=== PATIENT | female | born 1975 | race Caucasian/White ===

== ENCOUNTER → 2017-09-08 11:13 | Outpatient (CLI) | payer OTHER, SELFPAY ==
--- NOTE | 2017-09-08 11:15 | DI.RAD.S_ITS ---
PROCEDURE: XR WRIST LT MIN 3V INDICATIONS: L hand and wrist pain TECHNIQUE: 4 views of the wrist were acquired. COMPARISON: [facility], , WRIST 2 VIEWS RIGHT, 04/20/2016, 22:10. FINDINGS: Bones: No fractures or dislocations. No suspicious bony lesions. Scaphoid view: No trauma found. Soft tissues: No suspicious soft tissue calcifications. IMPRESSION: No trauma found. Dictated by: Fabiano Ivan M.D. on 09/08/2017 at 12:03 Approved by: Fabiano Ivan M.D. on 09/08/2017 at 12:03
--- NOTE | 2017-09-08 11:15 | DI.RAD.S_ITS ---
PROCEDURE: XR HAND LT MIN 3V INDICATIONS: L hand and wrist pain TECHNIQUE: 3 views of the hand(s) acquired. COMPARISON: None. FINDINGS: Bones: No fractures or dislocations. Carpal bones are normally aligned. No suspicious bony lesions. Soft tissues: No suspicious soft tissue calcifications. IMPRESSION: Normal for age, source of current symptoms is not seen other than a mild degree of thinning of the intra-articular joint width at the distal phalanges, consistent with mild osteoarthritis. Dictated by: Fabiano Ivan M.D. on 09/08/2017 at 12:02 Approved by: Fabiano Ivan M.D. on 09/08/2017 at 12:03
== END ==
PROVIDERS: PCP Family Medicine; Visit Provider Nurse Practitioner Family
DX: M79.642 Pain in left hand (principal); M25.532 Pain in left wrist
CPT/HCPCS: 73110; 73130

== ENCOUNTER → 2017-12-25 08:14 | Outpatient (CLI) | payer OTHER, SELFPAY ==
[2017-12-25 08:36] LABS: Add Manual Diff / Slide Review NO; Basophils Percent Auto 0.3 % (0-2); Eosinophils Percent Auto 2.3 % (2-4); Hematocrit 41.8 % (36-46); Hemoglobin 14.4 g/dL (12.0-16.0); Lymphocytes Percent Auto 23.6 % (25-40); Mean Corpuscular HGB Conc 34.4 % (30-36); Mean Corpuscular Hemoglobin 34.6 PG (26-34); Mean Corpuscular Volume 100.3 fL (80-100); Monocytes Percent Auto 6.9 % (3-14); Neutrophils Absolute Auto 4100 /uL (3000-5900); Neutrophils Percent Auto 66.9 % (50-75); Platelet Count 185 X10^3/uL (150-400); Red Blood Cell Count 4.17 X10^6/uL (4.0-5.2); Red Cell Distribution Width 12.7 % (11.6-14.8); White Blood Cell Count 6.2 X10^3/uL (4.5-11.0)
[2017-12-25 09:15] LABS: Alanine Aminotransferase 23 IU/L (9-52); Albumin 4.2 g/dL (3.5-5.0); Albumin Globulin Ratio 1.4 (1.0-2.8); Alkaline Phosphatase 63 U/L (38-126); Aspartate Aminotransferase 34 IU/L (14-36); BUN Creatinine Ratio 15.6 (6-22); Bilirubin Total 0.5 mg/dL (0.2-1.3); Blood Urea Nitrogen 14 mg/dL (7-17); Calcium 9.1 mg/dL (8.4-10.2); Carbon Dioxide 30 mmol/L (22-32); Chloride 106 mmol/L (98-107); Cholesterol 139 mg/dL (140-199); Estimated Glomerular Filt Rate > 60.0 mL/min (>60); Glucose 91 mg/dL (70-100); HDL Cholesterol 75 mg/dL (40-60); HEMOLYSIS 16 (0-50); LDL Cholesterol Calculated 52 mg/dL (<100); Sodium 146 mmol/L (137-145); Total Protein 7.2 g/dL (6.3-8.2); Triglycerides 59 mg/dL (35-150)
[2017-12-25 10:31] LABS: Thyroid Stimulating Hormone 3.37 uIU/mL (0.47-4.68)
== END ==
PROVIDERS: PCP Family Medicine; Visit Provider Family Medicine
DX: F90.9 Attention-deficit hyperactivity disorder, unspecified type (principal)
CPT/HCPCS: 36415; 80053; 80061; 84443; 85025

== ENCOUNTER → 2018-01-28 11:01 | Outpatient (CLI) | payer OTHER, SELFPAY | PROVIDERS: PCP Family Medicine; Visit Provider Physician Assistant | DX: J02.9 Acute pharyngitis, unspecified (principal) | CPT/HCPCS: 87070; 87147 ==

== ENCOUNTER → 2018-04-15 08:12 | Outpatient (CLI) | payer OTHER, SELFPAY ==
--- NOTE | 2018-04-15 | DI.MG.S_ITS ---
BILATERAL DIGITAL SCREENING MAMMOGRAM 3D/2D WITH CAD WITH AUGMENTATION: 04/15/2018 CLINICAL: Routine screening. Comparison is made to exam dated: 06/05/2016 [facility]. There are scattered fibroglandular elements in both breasts. Current study was also evaluated with a Computer Aided Detection (CAD) system. Bilateral breast implants are intact. No significant masses, calcifications, or other findings are seen in either breast. There has been no significant interval change. IMPRESSION: There is no mammographic evidence of malignancy. A 1 year screening mammogram is recommended. This exam was interpreted at Station ID: [id number]. NOTE: For mammograms, a report in lay terms will be sent to the patient. Approximately 15% of breast malignancies will not be visualized mammographically. In the management of a palpable breast mass, a negative mammogram must not discourage biopsy of a clinically suspicious lesion. Electronically Signed By: Dakota taylor/nadira:04/16/2018 11:48:29 copy to: KINA CAIN letter sent: Normal Exam ACR BI-RADS Category 2: Benign Finding(s) 3342F
== END ==
PROVIDERS: PCP Family Medicine; Visit Provider Family Medicine
DX: Z12.31 Encounter for screening mammogram for malignant neoplasm of breast (principal)
CPT/HCPCS: 77063; 77067

== ENCOUNTER 2018-09-16 08:15 | Outpatient (RCR) | payer OTHER, SELFPAY ==
--- NOTE | 2018-06-15 17:30 | PT.OIE ---
Current Diagnoses Pain in left knee (06/15/18) Past Medical History (Last Updated 11/23/17 @ 22:59 by Shannon Hutchinson) ADHD (Chronic) Acne (Chronic ~1987) Ankle pain (Chronic ~1991) Fractures (Chronic ~1985) Irregular menstrual cycle (Chronic ~2011) Ovarian cyst (Chronic ~2011) Rosacea (Chronic ~2007) Tinnitus (Chronic ~2012) Chicken pox (Resolved ~1979) Kidney stones (Resolved ~1997) Staph infection (Resolved ~1997) Past Surgical History (Last Updated 11/23/17 @ 22:59 by Shannon Hutchinson) Anesthesia (Resolved) Surgical procedure planned (Resolved ~2002) Surgical procedure planned (Resolved ~2009) History of breast augmentation (~2010) History of lithotripsy Status post knee surgery (~1988) Provider Visit Care Team Role Provider Type Fer Cole MD Attending Provider Physician Primary Care Provider Specialty: Family Practice Address: [address] [place] [address] Email: [email or web address] Physical Therapy Initial Evaluation PT-OP-A Visit Information Start: 06/15/18 17:24 Freq: Status: Active Protocol: Document 06/15/18 17:20 EA (Rec: 06/16/18 08:57 EA [id number]) Out-Patient Physical Therapy Visit Information Visit Information Visit Type Initial Evaluation Visit Start Time 08:15 Visit Stop Time 08:50 Total Visit Minutes 35 Visit Number 1 Number of MECHANIC'S ASSISTANT Visits 0 Evaluation Information Evaluation Date 06/16/18 PT-OP-B Current Condition Start: 06/15/18 17:24 Freq: Status: Active Protocol: Document 06/15/18 17:20 EA (Rec: 06/16/18 08:57 EA [id number]) Current Condition History of Current Condition Onset Date 3 years ago (Chronic) Current Complaints Left knee pain History of Current Condition Patient reports present left localized knee complaint has been chronic in the last three years with a history of ACL reconstruction surgery ( patellar tendon graft) 22 years ago. Patient denies any knee injury in the last 5 years. Pt states that she has been using ICE and knee brace in the last three years to managed the condition. She mentioned three marathon in the last ten years and pain is manageable, however, pain and swelling anytime she does running lessen her ability to progress more. States diagnostic imaging performed with arthritic condition of the knee. Prior Treatments and Tests Formal PT to left knee after surgery 22 years ago (last longer due to infection) Future Testing and Treatments Planned None identified. Treatment Goals Patient/Caregiver Goals Patient would like to be able to run without aggravating the knee and with no increase of symptoms. 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) Baseline Function- Recreation/Hobbies 3x/wk crossfit training 3-5 miles/ running per week Current Functional Impairments (Reported) Functional Limitations- ADL's Independent with difficulty in full squat activities Functional Limitations- Mobility/Gait Indep with no assistive device Functional Limitations- Work/School Indepedent Functional Limitations- Recreation/ Unable to run more than three Hobbies mile a week due increased in symptoms Difficulty in full squat crossfit activities PT-OP-C Subjective Start: 06/15/18 17:24 Freq: Status: Active Protocol: Document 06/15/18 17:20 EA (Rec: 06/16/18 08:57 EA [id number]) OP-PT Subjective Patient Comments Patient Comments I have to wrap my left knee and ICE it every crossfit and running activities. Patient Reported Progress Worse Patient Questionnaires Lower Extremity Functional Scale LEFS Score 62 LEFS Impairment 20 to 39% Impaired (Score 48- 62) PT-OP-E Functional Tests Start: 06/15/18 17:24 Freq: Status: Active Protocol: Document 06/15/18 17:30 EA (Rec: 06/16/18 09:09 EA [id number]) Functional Tests Squat Test Score Single leg: Right able without difficulty. Left 30 degrees with difficulty PT-OP-F Manual Assessment Start: 06/15/18 17:24 Freq: Status: Active Protocol: Document 06/15/18 17:20 EA (Rec: 06/16/18 08:57 EA [id number]) Manual Assessments Soft Tissue Assessment Soft Tissue Mobility Assessment Tight left quads and slight both hamstrings tightness. Joint Mobility Assessment Joint Mobility Assessment Normal PT-OP-G Mobility & Gait Start: 06/15/18 17:24 Freq: Status: Active Protocol: Document 06/15/18 17:20 EA (Rec: 06/16/18 08:57 EA [id number]) Stair Climbing Evaluation Comments Stair Climbing Comments Slight antalgic with decreased stance phase to left PT-OP-J Posture/Palpation/Skin Start: 06/15/18 17:24 Freq: Status: Active Protocol: Document 06/15/18 17:20 EA (Rec: 06/16/18 08:57 EA [id number]) Posture Evaluation Comments Posture Comments Valgus to both knees with left is more than right Palpation Assessment Location One Palpation Location Left quads tightness, hip flexor, and ITB Palpation Findings Soft Tissue Tightness Tenderness Palpation Details Patellar crepitus, left. Grade 2/5 medial patellar ligament, lateral hamstring tendon insertion. PT-OP-K Range of Motion Start: 06/15/18 17:24 Freq: Status: Active Protocol: Document 06/15/18 17:20 EA (Rec: 06/16/18 08:57 EA [id number]) Knee Goniometric Range of Motion Knee Measured in Degrees Right Knee ROM WFL Yes Patient Position Supine Flexion Active (degrees) 145 Left Patient Position Supine Flexion Active (degrees) 112 Flexion Passive (degrees) 120 Extension Active (degrees) 0 Knee ROM Limitations Knee ROM Limitations Soft Tissue Tightness Pain PT-OP-L Special Tests Start: 06/15/18 17:24 Freq: Status: Active Protocol: Document 06/15/18 17:30 EA (Rec: 06/16/18 09:09 EA [id number]) Special Tests Knee Special Tests Anterior Draw Test Results negative Gibson's Compression Test Results positive Samia Test Test Results negative Hughston Pica Test Test Results negative Patellar Grind Test Test Results positive Korin's Test Test Results left positive Erwin Test Results both LE positive Martin's Sign Test Results Left knee positive PT-OP-M Strength Start: 06/15/18 17:24 Freq: Status: Active Protocol: Document 06/15/18 17:20 EA (Rec: 06/16/18 08:57 EA [id number]) Hip Strength Hip Manual Muscle Testing Right Reason Not Measured WFL Left Reason Not Measured WFL Knee Strength Knee Manual Muscle Testing Right Reason Not Measured WFL Left Flexion (S2) 4 Good Extension (L3) 4+ Good+ PT-OP-Q Treatments Start: 06/15/18 17:24 Freq: Status: Active Protocol: Document 06/15/18 17:28 EA (Rec: 06/15/18 17:29 EA [id number]) Self-Care/Home Management Treatment Education Patient Education Home Exercise Program Joint Protection Pain Management Safety PT-OP-T Assessment and Plan Start: 06/15/18 17:24 Freq: Status: Active Protocol: Document 06/15/18 17:25 EA (Rec: 06/15/18 17:28 EA [id number]) Physical Therapy Assessment Rehab Potential Rehabilitation Potential Good Evaluation Complexity Number of Personal Factors/Comorbidities 0 Number of Body Systems Impaired 1-2 Clinical Presentation at Evaluation Evolving Impairments Impairments Activity Tolerance Gait Pain ROM Strength Goals Four Impairment No HEP in place Senior Network Architect Goal (LTG) Patient will comply and perform home exercises safe and independent LTG Duration 3 wks Three Impairment Impaired left quads functional strength Senior Network Architect Goal (LTG) Patient will perform single leg squat without difficulty for functional running LTG Duration 4 wks Two Impairment Impaired left knee ROM Correction Goal (LTG) Patient will have left knee full ROM to enable patient perform crossfit activities without limitation LTG Duration 4 wks One Impairment LEFS score of 62/80 Senior Network Architect Goal (LTG) Will have LEFS score of 75/80 LTG Duration 6 wks Assessment Summary Assessment Pleasant 42 y/o F patient with a referring diagnosis of left knee pain. Today patient demonstrates slight gait abnormality and decreased left knee functional strength. Ocular inspection reveals valgus knee L is more than R, slight swelling, slight antalgic gait. Palpation reveals tender to medial patellar ligament, left lateral hamstring insertion, and tightness to quads, hamstring, and ITB. Special tests reveals positive with Martin's sign, patellar grind, gibson compression tests, negative ant drawer test, MCL/ LCL and meniscus tests. Patient unable to perform full squat and difficulty with left single leg squat. In my opinion, patient would greatly benefit with skilled PT to improve left quads strength, increase ROM. Physical Therapy Plan Frequency and Duration Frequency of Treatment 2x/Week Duration of Treatment 8 wks Plan of Care Start Date 06/15/18 Plan of Care End Date 08/10/18 Therapeutic Interventions Therapeutic Interventions Gait Training Home Exercise Program Joint Mobilizations Manual Therapy Patient/Caregiver Education Self-Care/Home Management Soft Tissue Mobilization Taping Therapeutic Exercises Modalities Cold Pack/Ice Massage Electric Stimulation Hot Packs Ultrasound Next Visit Focus/Plan Next Note Type Treatment Note Next Visit Plan HEP w/ images, quads strengthening and stretching.
--- NOTE | 2018-06-15 17:35 | PT.OPPOC ---
Current Diagnoses Pain in left knee (06/15/18) Provider Visit Care Team Role Provider Type Fer Cole MD Attending Provider Physician Primary Care Provider Specialty: Family Practice Address: [address] [place] [address], [facility] Email: [email or web address] Plan Of Care PT-OP-T Assessment and Plan Start: 06/15/18 17:24 Freq: Status: Active Protocol: Document 06/15/18 17:25 EA (Rec: 06/15/18 17:28 EA [id number]) Physical Therapy Assessment Rehab Potential Rehabilitation Potential Good Evaluation Complexity Number of Personal Factors/Comorbidities 0 Number of Body Systems Impaired 1-2 Clinical Presentation at Evaluation Evolving Impairments Impairments Activity Tolerance Gait Pain ROM Strength Goals Four Impairment No HEP in place Halfway Goal (LTG) Patient will comply and perform home exercises safe and independent LTG Duration 3 wks Three Impairment Impaired left quads functional strength Mounter Clarinets Goal (LTG) Patient will perform single leg squat without difficulty for functional running LTG Duration 4 wks Two Impairment Impaired left knee ROM Mounter Clarinets Goal (LTG) Patient will have left knee full ROM to enable patient perform crossfit activities without limitation LTG Duration 4 wks One Impairment LEFS score of 62/80 Halfway Goal (LTG) Will have LEFS score of 75/80 LTG Duration 6 wks Assessment Summary Assessment Pleasant 42 y/o F patient with a referring diagnosis of left knee pain. Today patient demonstrates slight gait abnormality and decreased left knee functional strength. Ocular inspection reveals valgus knee L is more than R, slight swelling, slight antalgic gait. Palpation reveals tender to medial patellar ligament, left lateral hamstring insertion, and tightness to quads, hamstring, and ITB. Special tests reveals positive with Martin's sign, patellar grind, gibson compression tests, negative ant drawer test, MCL/ LCL and meniscus tests. Patient unable to perform full squat and difficulty with left single leg squat. In my opinion, patient would greatly benefit with skilled PT to improve left quads strength, increase ROM. Physical Therapy Plan Frequency and Duration Frequency of Treatment 2x/Week Duration of Treatment 8 wks Plan of Care Start Date 06/15/18 Plan of Care End Date 08/10/18 Therapeutic Interventions Therapeutic Interventions Gait Training Home Exercise Program Joint Mobilizations Manual Therapy Patient/Caregiver Education Self-Care/Home Management Soft Tissue Mobilization Taping Therapeutic Exercises Modalities Cold Pack/Ice Massage Electric Stimulation Hot Packs Ultrasound Next Visit Focus/Plan Next Note Type Treatment Note Next Visit Plan HEP w/ images, quads strengthening and stretching. Plan of Care Dates Plan of Care Start Date 06/15/18 Plan of Care End Date 08/10/18 Please Sign and Return: I have reviewed this Plan of Care and certify that the skilled therapy services above are required to meet the patient?s needs. Physician Signature Date Printed Name and Credentials Clinical Instructor Signature Printed Name and Credentials
--- NOTE | 2018-06-17 12:42 | PT.OTN ---
Current Diagnoses Pain in left knee (06/17/18) Physical Therapy Treatment Note PT-OP-A Visit Information Start: 06/15/18 17:24 Freq: Status: Active Protocol: Document 06/17/18 08:59 EA (Rec: 06/17/18 09:11 EA [id number]) Out-Patient Physical Therapy Visit Information Visit Information Visit Type Treatment Note Visit Start Time 08:15 Visit Stop Time 09:10 Total Visit Minutes 55 Visit Number 2 Number of GAS PUMPER Visits 0 PT-OP-B Current Condition Start: 06/15/18 17:24 Freq: Status: Active Protocol: Document 06/15/18 17:20 EA (Rec: 06/16/18 08:57 EA [id number]) Current Condition History of Current Condition Onset Date 3 years ago (Chronic) Current Complaints Left knee pain History of Current Condition Patient reports present left localized knee complaint has been chronic in the last three years with a history of ACL reconstruction surgery ( patellar tendon graft) 22 years ago. Patient denies any knee injury in the last 5 years. Pt states that she has been using ICE and knee brace in the last three years to managed the condition. She mentioned three marathon in the last ten years and pain is manageable, however, pain and swelling anytime she does running lessen her ability to progress more. States diagnostic imaging performed with arthritic condition of the knee. Prior Treatments and Tests Formal PT to left knee after surgery 22 years ago (last longer due to infection) Future Testing and Treatments Planned None identified. Treatment Goals Patient/Caregiver Goals Patient would like to be able to run without aggravating the knee and with no increase of symptoms. 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) Baseline Function- Recreation/Hobbies 3x/wk crossfit training 3-5 miles/ running per week Current Functional Impairments (Reported) Functional Limitations- ADL's Independent with difficulty in full squat activities Functional Limitations- Mobility/Gait Indep with no assistive device Functional Limitations- Work/School Indepedent Functional Limitations- Recreation/ Unable to run more than three Hobbies mile a week due increased in symptoms Difficulty in full squat crossfit activities PT-OP-C Subjective Start: 06/15/18 17:24 Freq: Status: Active Protocol: Document 06/17/18 08:59 EA (Rec: 06/17/18 09:11 EA [id number]) OP-PT Subjective Patient Comments Patient Comments Pt reports has been compliant with HEP. PT-OP-E Functional Tests Start: 06/15/18 17:24 Freq: Status: Active Protocol: Document 06/15/18 17:30 EA (Rec: 06/16/18 09:09 EA [id number]) Functional Tests Squat Test Score Single leg: Right able without difficulty. Left 30 degrees with difficulty PT-OP-F Manual Assessment Start: 06/15/18 17:24 Freq: Status: Active Protocol: Document 06/15/18 17:20 EA (Rec: 06/16/18 08:57 EA [id number]) Manual Assessments Soft Tissue Assessment Soft Tissue Mobility Assessment Tight left quads and slight both hamstrings tightness. Joint Mobility Assessment Joint Mobility Assessment Normal PT-OP-G Mobility & Gait Start: 06/15/18 17:24 Freq: Status: Active Protocol: Document 06/15/18 17:20 EA (Rec: 06/16/18 08:57 EA [id number]) Stair Climbing Evaluation Comments Stair Climbing Comments Slight antalgic with decreased stance phase to left PT-OP-J Posture/Palpation/Skin Start: 06/15/18 17:24 Freq: Status: Active Protocol: Document 06/15/18 17:20 EA (Rec: 06/16/18 08:57 EA [id number]) Posture Evaluation Comments Posture Comments Valgus to both knees with left is more than right Palpation Assessment Location One Palpation Location Left quads tightness, hip flexor, and ITB Palpation Findings Soft Tissue Tightness Tenderness Palpation Details Patellar crepitus, left. Grade 2/5 medial patellar ligament, lateral hamstring tendon insertion. PT-OP-K Range of Motion Start: 06/15/18 17:24 Freq: Status: Active Protocol: Document 06/15/18 17:20 EA (Rec: 06/16/18 08:57 EA [id number]) Knee Goniometric Range of Motion Knee Measured in Degrees Right Knee ROM WFL Yes Patient Position Supine Flexion Active (degrees) 145 Left Patient Position Supine Flexion Active (degrees) 112 Flexion Passive (degrees) 120 Extension Active (degrees) 0 Knee ROM Limitations Knee ROM Limitations Soft Tissue Tightness Pain PT-OP-L Special Tests Start: 06/15/18 17:24 Freq: Status: Active Protocol: Document 06/15/18 17:30 EA (Rec: 06/16/18 09:09 EA [id number]) Special Tests Knee Special Tests Anterior Draw Test Results negative Sharp's Compression Test Results positive Samia Test Test Results negative Hughston Pica Test Test Results negative Patellar Grind Test Test Results positive Korin's Test Test Results left positive Erwin Test Results both LE positive Martin's Sign Test Results Left knee positive PT-OP-M Strength Start: 06/15/18 17:24 Freq: Status: Active Protocol: Document 06/15/18 17:20 EA (Rec: 06/16/18 08:57 EA [id number]) Hip Strength Hip Manual Muscle Testing Right Reason Not Measured WFL Left Reason Not Measured WFL Knee Strength Knee Manual Muscle Testing Right Reason Not Measured WFL Left Flexion (S2) 4 Good Extension (L3) 4+ Good+ PT-OP-Q Treatments Start: 06/15/18 17:24 Freq: Status: Active Protocol: Document 06/17/18 08:59 EA (Rec: 06/17/18 09:11 EA [id number]) Cardio Equipment Bicycle (Upright) Duration (Minutes) 7 Resistance 4 Seat Position 4-2 Gym Equipment Cable Column (Body Solid) Leg Extension Details ball in bet knees Resistance 30lbs Reps/Time x 12 reps Shuttle Recovery Unilateral Squats Resistance 2 cords Shuttle Recovery Platform Stable Reps/Time x 15 reps Bilateral Squats Resistance 4 cords Shuttle Recovery Platform Stable Reps/Time x 15 reps Therapeutic Exercises Supine Exercises 1 Supine Exercise Name SKTC Side left Reps/Minutes x 30SH x 2 Prone Exercises 1 Prone Exercise Name qudas stretch Side left Reps/Minutes x 30SH x 2 Standing Exercises 3 Standing Exercise Name corrected squating 90degrees Side bilateral Reps/Minutes x 15 reps 2 Standing Exercise Name FWD lunges 1 Standing Exercise Name wall squat Side bilateral Reps/Minutes x 15 reps x2 Comments 90 deg w/ ball in bet knees/ VMO Self-Care/Home Management Treatment Education Patient Education Home Exercise Program Joint Protection Pain Management PT-OP-R Modalities Start: 06/15/18 17:24 Freq: Status: Active Protocol: Document 06/17/18 09:11 EA (Rec: 06/17/18 09:12 EA [id number]) Hot Pack/Cold Pack Treatment Cold Pack Location left knee Patient Position Hooklying Treatment Duration (minutes) 15 Patient Tolerance Good PT-OP-T Assessment and Plan Start: 06/15/18 17:24 Freq: Status: Active Protocol: Document 06/17/18 08:59 EA (Rec: 06/17/18 09:11 EA [id number]) Physical Therapy Assessment Assessment Summary Assessment Pt requires cues during exercises execution. Tolerated treatment well with no discomfort noted. Physical Therapy Plan Next Visit Focus/Plan Next Note Type Treatment Note Next Visit Plan Continue with progressive strengthening to quads area
--- NOTE | 2018-06-22 13:42 | PT.OTN ---
Current Diagnoses Pain in left knee (06/22/18) Physical Therapy Treatment Note PT-OP-A Visit Information Start: 06/15/18 17:24 Freq: Status: Active Protocol: Document 06/22/18 13:38 EA (Rec: 06/22/18 13:42 EA [id number]) Out-Patient Physical Therapy Visit Information Visit Information Visit Type Treatment Note Visit Start Time 10:30 Visit Stop Time 11:25 Total Visit Minutes 55 Visit Number 3 Number of BIOGEOGRAPHER Visits 0 PT-OP-B Current Condition Start: 06/15/18 17:24 Freq: Status: Active Protocol: Document 06/15/18 17:20 EA (Rec: 06/16/18 08:57 EA [id number]) Current Condition History of Current Condition Onset Date 3 years ago (Chronic) Current Complaints Left knee pain History of Current Condition Patient reports present left localized knee complaint has been chronic in the last three years with a history of ACL reconstruction surgery ( patellar tendon graft) 22 years ago. Patient denies any knee injury in the last 5 years. Pt states that she has been using ICE and knee brace in the last three years to managed the condition. She mentioned three marathon in the last ten years and pain is manageable, however, pain and swelling anytime she does running lessen her ability to progress more. States diagnostic imaging performed with arthritic condition of the knee. Prior Treatments and Tests Formal PT to left knee after surgery 22 years ago (last longer due to infection) Future Testing and Treatments Planned None identified. Treatment Goals Patient/Caregiver Goals Patient would like to be able to run without aggravating the knee and with no increase of symptoms. 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) Baseline Function- Recreation/Hobbies 3x/wk crossfit training 3-5 miles/ running per week Current Functional Impairments (Reported) Functional Limitations- ADL's Independent with difficulty in full squat activities Functional Limitations- Mobility/Gait Indep with no assistive device Functional Limitations- Work/School Indepedent Functional Limitations- Recreation/ Unable to run more than three Hobbies mile a week due increased in symptoms Difficulty in full squat crossfit activities PT-OP-C Subjective Start: 06/15/18 17:24 Freq: Status: Active Protocol: Document 06/22/18 13:38 EA (Rec: 06/22/18 13:42 EA [id number]) OP-PT Subjective Patient Comments Patient Comments Pt reports had crossfit workout and knee is fine., PT-OP-E Functional Tests Start: 06/15/18 17:24 Freq: Status: Active Protocol: Document 06/15/18 17:30 EA (Rec: 06/16/18 09:09 EA [id number]) Functional Tests Squat Test Score Single leg: Right able without difficulty. Left 30 degrees with difficulty PT-OP-F Manual Assessment Start: 06/15/18 17:24 Freq: Status: Active Protocol: Document 06/15/18 17:20 EA (Rec: 06/16/18 08:57 EA [id number]) Manual Assessments Soft Tissue Assessment Soft Tissue Mobility Assessment Tight left quads and slight both hamstrings tightness. Joint Mobility Assessment Joint Mobility Assessment Normal PT-OP-G Mobility & Gait Start: 06/15/18 17:24 Freq: Status: Active Protocol: Document 06/15/18 17:20 EA (Rec: 06/16/18 08:57 EA [id number]) Stair Climbing Evaluation Comments Stair Climbing Comments Slight antalgic with decreased stance phase to left PT-OP-J Posture/Palpation/Skin Start: 06/15/18 17:24 Freq: Status: Active Protocol: Document 06/15/18 17:20 EA (Rec: 06/16/18 08:57 EA [id number]) Posture Evaluation Comments Posture Comments Valgus to both knees with left is more than right Palpation Assessment Location One Palpation Location Left quads tightness, hip flexor, and ITB Palpation Findings Soft Tissue Tightness Tenderness Palpation Details Patellar crepitus, left. Grade 2/5 medial patellar ligament, lateral hamstring tendon insertion. PT-OP-K Range of Motion Start: 06/15/18 17:24 Freq: Status: Active Protocol: Document 06/15/18 17:20 EA (Rec: 06/16/18 08:57 EA [id number]) Knee Goniometric Range of Motion Knee Measured in Degrees Right Knee ROM WFL Yes Patient Position Supine Flexion Active (degrees) 145 Left Patient Position Supine Flexion Active (degrees) 112 Flexion Passive (degrees) 120 Extension Active (degrees) 0 Knee ROM Limitations Knee ROM Limitations Soft Tissue Tightness Pain PT-OP-L Special Tests Start: 06/15/18 17:24 Freq: Status: Active Protocol: Document 06/15/18 17:30 EA (Rec: 06/16/18 09:09 EA [id number]) Special Tests Knee Special Tests Anterior Draw Test Results negative Sharp's Compression Test Results positive Samia Test Test Results negative Hughston Pica Test Test Results negative Patellar Grind Test Test Results positive Korin's Test Test Results left positive Erwin Test Results both LE positive Martin's Sign Test Results Left knee positive PT-OP-M Strength Start: 06/15/18 17:24 Freq: Status: Active Protocol: Document 06/15/18 17:20 EA (Rec: 06/16/18 08:57 EA [id number]) Hip Strength Hip Manual Muscle Testing Right Reason Not Measured WFL Left Reason Not Measured WFL Knee Strength Knee Manual Muscle Testing Right Reason Not Measured WFL Left Flexion (S2) 4 Good Extension (L3) 4+ Good+ PT-OP-Q Treatments Start: 06/15/18 17:24 Freq: Status: Active Protocol: Document 06/22/18 13:38 EA (Rec: 06/22/18 13:42 EA [id number]) Cardio Equipment Bicycle (Upright) Duration (Minutes) 7 Resistance 5 Seat Position 4-2 Gym Equipment Cable Column (Body Solid) Leg Extension Details ball in bet knees Resistance 30-50lbs Reps/Time x 8-12 reps Shuttle Recovery Unilateral Squats Resistance 3.5 cords Shuttle Recovery Platform Stable Reps/Time x 15 reps Bilateral Squats Resistance 4 cords Shuttle Recovery Platform Stable Reps/Time x 15 reps Therapeutic Exercises Supine Exercises 1 Supine Exercise Name SKTC Side left Reps/Minutes x 30SH x 2 Prone Exercises 1 Prone Exercise Name quads stretch Side left Reps/Minutes x 30SH x 2 Standing Exercises 3 Standing Exercise Name corrected squating 90degrees Side bilateral Reps/Minutes x 15 reps 2 Standing Exercise Name FWD lunges Reps/Minutes x 12 ft x 3 1 Standing Exercise Name wall squat Side bilateral Resistance 10lbs db to both arm Reps/Minutes x 15 reps x2 Comments 90 deg w/ ball in bet knees/ VMO PT-OP-R Modalities Start: 06/15/18 17:24 Freq: Status: Active Protocol: Document 06/22/18 13:38 EA (Rec: 06/22/18 13:42 EA [id number]) Hot Pack/Cold Pack Treatment Cold Pack Location left knee Patient Position Hooklying Treatment Duration (minutes) 15 Patient Tolerance Good PT-OP-T Assessment and Plan Start: 06/15/18 17:24 Freq: Status: Active Protocol: Document 06/22/18 13:38 EA (Rec: 06/22/18 13:42 EA [id number]) Physical Therapy Assessment Assessment Summary Assessment Tolerated treatment well with no discomfort. Physical Therapy Plan Next Visit Focus/Plan Next Note Type Treatment Note Next Visit Plan Continue with progressive strengthening to quads area
--- NOTE | 2018-06-24 09:18 | PT.OTN ---
Current Diagnoses Pain in left knee (06/24/18) Physical Therapy Treatment Note PT-OP-A Visit Information Start: 06/15/18 17:24 Freq: Status: Active Protocol: Document 06/24/18 08:21 EA (Rec: 06/24/18 09:02 EA [id number]) Out-Patient Physical Therapy Visit Information Visit Information Visit Type Treatment Note Visit Start Time 08:15 Visit Stop Time 09:12 Total Visit Minutes 57 Visit Number 4 Number of DIMENSION MILL WORKER Visits 0 PT-OP-B Current Condition Start: 06/15/18 17:24 Freq: Status: Active Protocol: Document 06/15/18 17:20 EA (Rec: 06/16/18 08:57 EA [id number]) Current Condition History of Current Condition Onset Date 3 years ago (Chronic) Current Complaints Left knee pain History of Current Condition Patient reports present left localized knee complaint has been chronic in the last three years with a history of ACL reconstruction surgery ( patellar tendon graft) 22 years ago. Patient denies any knee injury in the last 5 years. Pt states that she has been using ICE and knee brace in the last three years to managed the condition. She mentioned three marathon in the last ten years and pain is manageable, however, pain and swelling anytime she does running lessen her ability to progress more. States diagnostic imaging performed with arthritic condition of the knee. Prior Treatments and Tests Formal PT to left knee after surgery 22 years ago (last longer due to infection) Future Testing and Treatments Planned None identified. Treatment Goals Patient/Caregiver Goals Patient would like to be able to run without aggravating the knee and with no increase of symptoms. 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 Function- Recreation/Hobbies 3x/wk crossfit training 3-5 miles/ running per week Current Functional Impairments (Reported) Functional Limitations- ADL's Independent with difficulty in full squat activities Functional Limitations- Mobility/Gait Indep with no assistive device Functional Limitations- Work/School Indepedent Functional Limitations- Recreation/ Unable to run more than three Hobbies mile a week due increased in symptoms Difficulty in full squat crossfit activities PT-OP-C Subjective Start: 06/15/18 17:24 Freq: Status: Active Protocol: Document 06/24/18 08:21 EA (Rec: 06/24/18 09:02 EA [id number]) OP-PT Subjective Patient Comments Patient Comments Pty reports no swelling or increased in knee pain. PT-OP-E Functional Tests Start: 06/15/18 17:24 Freq: Status: Active Protocol: Document 06/15/18 17:30 EA (Rec: 06/16/18 09:09 EA [id number]) Functional Tests Squat Test Score Single leg: Right able without difficulty. Left 30 degrees with difficulty PT-OP-F Manual Assessment Start: 06/15/18 17:24 Freq: Status: Active Protocol: Document 06/15/18 17:20 EA (Rec: 06/16/18 08:57 EA [id number]) Manual Assessments Soft Tissue Assessment Soft Tissue Mobility Assessment Tight left quads and slight both hamstrings tightness. Joint Mobility Assessment Joint Mobility Assessment Normal PT-OP-G Mobility & Gait Start: 06/15/18 17:24 Freq: Status: Active Protocol: Document 06/15/18 17:20 EA (Rec: 06/16/18 08:57 EA [id number]) Stair Climbing Evaluation Comments Stair Climbing Comments Slight antalgic with decreased stance phase to left PT-OP-J Posture/Palpation/Skin Start: 06/15/18 17:24 Freq: Status: Active Protocol: Document 06/15/18 17:20 EA (Rec: 06/16/18 08:57 EA [id number]) Posture Evaluation Comments Posture Comments Valgus to both knees with left is more than right Palpation Assessment Location One Palpation Location Left quads tightness, hip flexor, and ITB Palpation Findings Soft Tissue Tightness Tenderness Palpation Details Patellar crepitus, left. Grade 2/5 medial patellar ligament, lateral hamstring tendon insertion. PT-OP-K Range of Motion Start: 06/15/18 17:24 Freq: Status: Active Protocol: Document 06/15/18 17:20 EA (Rec: 06/16/18 08:57 EA [id number]) Knee Goniometric Range of Motion Knee Measured in Degrees Right Knee ROM WFL Yes Patient Position Supine Flexion Active (degrees) 145 Left Patient Position Supine Flexion Active (degrees) 112 Flexion Passive (degrees) 120 Extension Active (degrees) 0 Knee ROM Limitations Knee ROM Limitations Soft Tissue Tightness Pain PT-OP-L Special Tests Start: 06/15/18 17:24 Freq: Status: Active Protocol: Document 06/15/18 17:30 EA (Rec: 06/16/18 09:09 EA [id number]) Special Tests Knee Special Tests Anterior Draw Test Results negative Sharp's Compression Test Results positive Samia Test Test Results negative Hughston Pica Test Test Results negative Patellar Grind Test Test Results positive Korin's Test Test Results left positive Erwin Test Results both LE positive Martin's Sign Test Results Left knee positive PT-OP-M Strength Start: 06/15/18 17:24 Freq: Status: Active Protocol: Document 06/15/18 17:20 EA (Rec: 06/16/18 08:57 EA [id number]) Hip Strength Hip Manual Muscle Testing Right Reason Not Measured WFL Left Reason Not Measured WFL Knee Strength Knee Manual Muscle Testing Right Reason Not Measured WFL Left Flexion (S2) 4 Good Extension (L3) 4+ Good+ PT-OP-Q Treatments Start: 06/15/18 17:24 Freq: Status: Active Protocol: Document 06/24/18 08:21 EA (Rec: 06/24/18 09:02 EA [id number]) Cardio Equipment Treadmill Duration (Minutes) 10 Speed 3-8 interval w/ ratio of 20: 120 seconds Incline 0 Gym Equipment Cable Column (Body Solid) Leg Extension Details ball in bet knees Resistance 40-60 Reps/Time x 8-12 reps Shuttle Recovery Unilateral Squats Resistance 3.5 cords Shuttle Recovery Platform Stable Reps/Time x 15 reps Therapeutic Exercises Prone Exercises 1 Prone Exercise Name quads stretch Side left Reps/Minutes x 30SH x 2 Standing Exercises 4 Standing Exercise Name Half lunge quad stretch Comments 2pillows behind to sit with full stretch 3 Standing Exercise Name corrected squating 90degrees Side bilateral Resistance 16lbs Reps/Minutes x 15 reps 2 Standing Exercise Name FWD lunges Resistance 16lbs Reps/Minutes x 12 ft x 3 1 Standing Exercise Name side step squat Resistance 5 lbs Reps/Minutes 12 ft x 3 lines PT-OP-R Modalities Start: 06/15/18 17:24 Freq: Status: Active Protocol: Document 06/24/18 09:13 EA (Rec: 06/24/18 09:17 EA [id number]) Hot Pack/Cold Pack Treatment Cold Pack Location left knee Patient Position Hooklying Treatment Duration (minutes) 15 Patient Tolerance Good PT-OP-T Assessment and Plan Start: 06/15/18 17:24 Freq: Status: Active Protocol: Document 06/24/18 09:13 ISABELLE (Rec: 06/24/18 09:17 ISABELLE [id number]) Physical Therapy Assessment Assessment Summary Assessment Patient exhibits slight increase of left knee valgus at 5.5 treadmill speed, however no knee pain complaint through all speed. Prone left knee bending improved as of today ~ 110 flexion. BP taken pso10 mins exercises and is 110/ 79mmHg. Patient is progressing well. Advised patient to come early every session and to perform warm-up. Physical Therapy Plan Next Visit Focus/Plan Next Note Type Treatment Note Next Visit Plan Continue with current plan. progress as able.
--- NOTE | 2018-06-29 12:10 | PT.OTN ---
Current Diagnoses Pain in left knee (06/29/18) Physical Therapy Treatment Note PT-OP-A Visit Information Start: 06/15/18 17:24 Freq: Status: Active Protocol: Document 06/29/18 08:54 EA (Rec: 06/29/18 08:58 EA [id number]) Out-Patient Physical Therapy Visit Information Visit Information Visit Type Treatment Note Visit Start Time 08:15 Visit Stop Time 09:10 Total Visit Minutes 55 Visit Number 5 Number of BRISTLE MACHINE OPERATOR Visits 0 PT-OP-B Current Condition Start: 06/15/18 17:24 Freq: Status: Active Protocol: Document 06/15/18 17:20 EA (Rec: 06/16/18 08:57 EA [id number]) Current Condition History of Current Condition Onset Date 3 years ago (Chronic) Current Complaints Left knee pain History of Current Condition Patient reports present left localized knee complaint has been chronic in the last three years with a history of ACL reconstruction surgery ( patellar tendon graft) 22 years ago. Patient denies any knee injury in the last 5 years. Pt states that she has been using ICE and knee brace in the last three years to managed the condition. She mentioned three marathon in the last ten years and pain is manageable, however, pain and swelling anytime she does running lessen her ability to progress more. States diagnostic imaging performed with arthritic condition of the knee. Prior Treatments and Tests Formal PT to left knee after surgery 22 years ago (last longer due to infection) Future Testing and Treatments Planned None identified. Treatment Goals Patient/Caregiver Goals Patient would like to be able to run without aggravating the knee and with no increase of symptoms. 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 Function- Recreation/Hobbies 3x/wk crossfit training 3-5 miles/ running per week Current Functional Impairments (Reported) Functional Limitations- ADL's Independent with difficulty in full squat activities Functional Limitations- Mobility/Gait Indep with no assistive device Functional Limitations- Work/School Indepedent Functional Limitations- Recreation/ Unable to run more than three Hobbies mile a week due increased in symptoms Difficulty in full squat crossfit activities PT-OP-C Subjective Start: 06/15/18 17:24 Freq: Status: Active Protocol: Document 06/29/18 08:58 EA (Rec: 06/29/18 08:59 EA [id number]) OP-PT Subjective Patient Comments Patient Comments Pt reports did a bit of lunges hop and feels left knee is a bit swelled today. Patient reports no complaint after last session adn felt knee was ok. Patient Reported Progress Improving PT-OP-E Functional Tests Start: 06/15/18 17:24 Freq: Status: Active Protocol: Document 06/15/18 17:30 EA (Rec: 06/16/18 09:09 EA [id number]) Functional Tests Squat Test Score Single leg: Right able without difficulty. Left 30 degrees with difficulty PT-OP-F Manual Assessment Start: 06/15/18 17:24 Freq: Status: Active Protocol: Document 06/15/18 17:20 EA (Rec: 06/16/18 08:57 EA [id number]) Manual Assessments Soft Tissue Assessment Soft Tissue Mobility Assessment Tight left quads and slight both hamstrings tightness. Joint Mobility Assessment Joint Mobility Assessment Normal PT-OP-G Mobility & Gait Start: 06/15/18 17:24 Freq: Status: Active Protocol: Document 06/15/18 17:20 EA (Rec: 06/16/18 08:57 EA [id number]) Stair Climbing Evaluation Comments Stair Climbing Comments Slight antalgic with decreased stance phase to left PT-OP-J Posture/Palpation/Skin Start: 06/15/18 17:24 Freq: Status: Active Protocol: Document 06/15/18 17:20 EA (Rec: 06/16/18 08:57 EA [id number]) Posture Evaluation Comments Posture Comments Valgus to both knees with left is more than right Palpation Assessment Location One Palpation Location Left quads tightness, hip flexor, and ITB Palpation Findings Soft Tissue Tightness Tenderness Palpation Details Patellar crepitus, left. Grade 2/5 medial patellar ligament, lateral hamstring tendon insertion. PT-OP-K Range of Motion Start: 06/15/18 17:24 Freq: Status: Active Protocol: Document 06/15/18 17:20 EA (Rec: 06/16/18 08:57 EA [id number]) Knee Goniometric Range of Motion Knee Measured in Degrees Right Knee ROM WFL Yes Patient Position Supine Flexion Active (degrees) 145 Left Patient Position Supine Flexion Active (degrees) 112 Flexion Passive (degrees) 120 Extension Active (degrees) 0 Knee ROM Limitations Knee ROM Limitations Soft Tissue Tightness Pain PT-OP-L Special Tests Start: 06/15/18 17:24 Freq: Status: Active Protocol: Document 06/15/18 17:30 EA (Rec: 06/16/18 09:09 EA [id number]) Special Tests Knee Special Tests Anterior Draw Test Results negative Sharp's Compression Test Results positive Samia Test Test Results negative Hughston Pica Test Test Results negative Patellar Grind Test Test Results positive Korin's Test Test Results left positive Erwin Test Results both LE positive Martin's Sign Test Results Left knee positive PT-OP-M Strength Start: 06/15/18 17:24 Freq: Status: Active Protocol: Document 06/15/18 17:20 EA (Rec: 06/16/18 08:57 EA [id number]) Hip Strength Hip Manual Muscle Testing Right Reason Not Measured WFL Left Reason Not Measured WFL Knee Strength Knee Manual Muscle Testing Right Reason Not Measured WFL Left Flexion (S2) 4 Good Extension (L3) 4+ Good+ PT-OP-Q Treatments Start: 06/15/18 17:24 Freq: Status: Active Protocol: Document 06/29/18 08:54 EA (Rec: 06/29/18 08:58 EA [id number]) Cardio Equipment Treadmill Duration (Minutes) 5 Speed continues: 5.5 Incline 0 Gym Equipment Cable Column (Body Solid) Leg Extension Details single leg: Left Resistance 10 Reps/Time x 8-12 reps Shuttle Recovery Unilateral Squats Resistance 3.5 cords Shuttle Recovery Platform Stable Reps/Time x 15 reps Therapeutic Exercises Supine Exercises 1 Supine Exercise Name Quads stretch: heel slide Side left Reps/Minutes x 30SH x 2 Comments foot on table surface Prone Exercises 1 Prone Exercise Name quads stretch Side left Reps/Minutes x 30SH x 2 Standing Exercises 4 Standing Exercise Name Half lunge quad stretch Comments 2pillows behind to sit with full stretch 3 Standing Exercise Name corrected squating 90degrees Side bilateral Reps/Minutes x 15 reps 2 Standing Exercise Name FWD lunges Resistance 5# Reps/Minutes x 12 ft x 3 Comments Front raises 1 Standing Exercise Name side step squat Resistance 5 lbs Reps/Minutes 12 ft x 3 lines Comments pain at the 3line PT-OP-R Modalities Start: 06/15/18 17:24 Freq: Status: Active Protocol: Document 06/29/18 08:54 EA (Rec: 06/29/18 08:58 EA [id number]) Hot Pack/Cold Pack Treatment Cold Pack Location left knee Patient Position Hooklying Treatment Duration (minutes) 15 Patient Tolerance Good PT-OP-T Assessment and Plan Start: 06/15/18 17:24 Freq: Status: Active Protocol: Document 06/29/18 08:54 EA (Rec: 06/29/18 08:58 EA [id number]) Physical Therapy Assessment Assessment Summary Assessment Heel slide knee flexion 120deg on left and 145deg on right. Pain with side step squat but tolerated when knee faced fwd. Physical Therapy Plan Next Visit Focus/Plan Next Note Type Treatment Note Next Visit Plan Continue with current plan. progress as able.
--- NOTE | 2018-07-01 12:56 | PT.OTN ---
Current Diagnoses Pain in left knee (07/01/18) Physical Therapy Treatment Note PT-OP-A Visit Information Start: 06/15/18 17:24 Freq: Status: Active Protocol: Document 07/01/18 08:21 EA (Rec: 07/01/18 09:01 EA [id number]) Out-Patient Physical Therapy Visit Information Visit Information Visit Type Treatment Note Visit Start Time 08:15 Visit Stop Time 09:10 Total Visit Minutes 55 Visit Number 5 Number of INDUSTRIAL RELATIONS SPECIALIST Visits 0 PT-OP-B Current Condition Start: 06/15/18 17:24 Freq: Status: Active Protocol: Document 06/15/18 17:20 EA (Rec: 06/16/18 08:57 EA [id number]) Current Condition History of Current Condition Onset Date 3 years ago (Chronic) Current Complaints Left knee pain History of Current Condition Patient reports present left localized knee complaint has been chronic in the last three years with a history of ACL reconstruction surgery ( patellar tendon graft) 22 years ago. Patient denies any knee injury in the last 5 years. Pt states that she has been using ICE and knee brace in the last three years to managed the condition. She mentioned three marathon in the last ten years and pain is manageable, however, pain and swelling anytime she does running lessen her ability to progress more. States diagnostic imaging performed with arthritic condition of the knee. Prior Treatments and Tests Formal PT to left knee after surgery 22 years ago (last longer due to infection) Future Testing and Treatments Planned None identified. Treatment Goals Patient/Caregiver Goals Patient would like to be able to run without aggravating the knee and with no increase of symptoms. 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 Function- Recreation/Hobbies 3x/wk crossfit training 3-5 miles/ running per week Current Functional Impairments (Reported) Functional Limitations- ADL's Independent with difficulty in full squat activities Functional Limitations- Mobility/Gait Indep with no assistive device Functional Limitations- Work/School Indepedent Functional Limitations- Recreation/ Unable to run more than three Hobbies mile a week due increased in symptoms Difficulty in full squat crossfit activities PT-OP-C Subjective Start: 06/15/18 17:24 Freq: Status: Active Protocol: Document 07/01/18 08:21 EA (Rec: 07/01/18 09:01 EA [id number]) OP-PT Subjective Patient Comments Patient Comments Pt reports went for a short crossfit clean squat lift; states left knee is much better today than last session . Patient Reported Progress Improving PT-OP-E Functional Tests Start: 06/15/18 17:24 Freq: Status: Active Protocol: Document 06/15/18 17:30 EA (Rec: 06/16/18 09:09 EA [id number]) Functional Tests Squat Test Score Single leg: Right able without difficulty. Left 30 degrees with difficulty PT-OP-F Manual Assessment Start: 06/15/18 17:24 Freq: Status: Active Protocol: Document 06/15/18 17:20 EA (Rec: 06/16/18 08:57 EA [id number]) Manual Assessments Soft Tissue Assessment Soft Tissue Mobility Assessment Tight left quads and slight both hamstrings tightness. Joint Mobility Assessment Joint Mobility Assessment Normal PT-OP-G Mobility & Gait Start: 06/15/18 17:24 Freq: Status: Active Protocol: Document 06/15/18 17:20 EA (Rec: 06/16/18 08:57 EA [id number]) Stair Climbing Evaluation Comments Stair Climbing Comments Slight antalgic with decreased stance phase to left PT-OP-J Posture/Palpation/Skin Start: 06/15/18 17:24 Freq: Status: Active Protocol: Document 06/15/18 17:20 EA (Rec: 06/16/18 08:57 EA [id number]) Posture Evaluation Comments Posture Comments Valgus to both knees with left is more than right Palpation Assessment Location One Palpation Location Left quads tightness, hip flexor, and ITB Palpation Findings Soft Tissue Tightness Tenderness Palpation Details Patellar crepitus, left. Grade 2/5 medial patellar ligament, lateral hamstring tendon insertion. PT-OP-K Range of Motion Start: 06/15/18 17:24 Freq: Status: Active Protocol: Document 06/15/18 17:20 EA (Rec: 06/16/18 08:57 EA [id number]) Knee Goniometric Range of Motion Knee Measured in Degrees Right Knee ROM WFL Yes Patient Position Supine Flexion Active (degrees) 145 Left Patient Position Supine Flexion Active (degrees) 112 Flexion Passive (degrees) 120 Extension Active (degrees) 0 Knee ROM Limitations Knee ROM Limitations Soft Tissue Tightness Pain PT-OP-L Special Tests Start: 06/15/18 17:24 Freq: Status: Active Protocol: Document 06/15/18 17:30 EA (Rec: 06/16/18 09:09 EA [id number]) Special Tests Knee Special Tests Anterior Draw Test Results negative Sharp's Compression Test Results positive Samia Test Test Results negative Hughston Pica Test Test Results negative Patellar Grind Test Test Results positive Korin's Test Test Results left positive Erwin Test Results both LE positive Martin's Sign Test Results Left knee positive PT-OP-M Strength Start: 06/15/18 17:24 Freq: Status: Active Protocol: Document 06/15/18 17:20 EA (Rec: 06/16/18 08:57 EA [id number]) Hip Strength Hip Manual Muscle Testing Right Reason Not Measured WFL Left Reason Not Measured WFL Knee Strength Knee Manual Muscle Testing Right Reason Not Measured WFL Left Flexion (S2) 4 Good Extension (L3) 4+ Good+ PT-OP-Q Treatments Start: 06/15/18 17:24 Freq: Status: Active Protocol: Document 07/01/18 08:21 EA (Rec: 07/01/18 09:01 EA [id number]) Cardio Equipment Recumbent Bicycle Duration (Minutes) 7 Resistance 6 Seat Position 2 Gym Equipment Cable Column (Body Solid) Leg Extension Details single leg: Left Resistance 10-15 Reps/Time x 8-12 reps Shuttle Recovery Unilateral Squats Resistance 3.5-5cords Shuttle Recovery Platform Stable Reps/Time x 15 reps Therapeutic Exercises Supine Exercises 1 Supine Exercise Name Quads stretch: heel slide Side left Reps/Minutes x 30SH x 2 Comments foot on table surface Prone Exercises 1 Prone Exercise Name quads stretch Side left Reps/Minutes x 30SH x 2 Standing Exercises 5 Standing Exercise Name 30 lbs cable single leg squat Reps/Minutes x 10 reps 4 Standing Exercise Name Half lunge quad stretch Comments 2pillows behind to sit with full stretch 3 Standing Exercise Name corrected squating 90degrees Side bilateral Reps/Minutes x 15 reps 2 Standing Exercise Name FWD lunges Resistance 5# Reps/Minutes x 12 ft x 3 Comments Front raises 1 Standing Exercise Name side step squat Resistance 5 lbs Reps/Minutes 12 ft x 3 lines Comments pain at the 3line PT-OP-R Modalities Start: 06/15/18 17:24 Freq: Status: Active Protocol: Document 07/01/18 08:21 EA (Rec: 07/01/18 09:01 EA [id number]) Hot Pack/Cold Pack Treatment Cold Pack Location left knee Patient Position Hooklying Treatment Duration (minutes) 15 Patient Tolerance Good PT-OP-T Assessment and Plan Start: 06/15/18 17:24 Freq: Status: Active Protocol: Document 07/01/18 08:21 EA (Rec: 07/01/18 09:01 EA [id number]) Physical Therapy Assessment Assessment Summary Assessment Patient had improved strength and more quad flexibility tolerance.. Patient is progressing well. Physical Therapy Plan Next Visit Focus/Plan Next Note Type Treatment Note Next Visit Plan Continue with current plan. progress as able.
--- NOTE | 2018-07-06 10:11 | PT.OTN ---
Current Diagnoses Pain in left knee (07/06/18) Physical Therapy Treatment Note PT-OP-A Visit Information Start: 06/15/18 17:24 Freq: Status: Active Protocol: Document 07/06/18 08:23 EA (Rec: 07/06/18 08:26 EA [id number]) Out-Patient Physical Therapy Visit Information Visit Information Visit Type Treatment Note Visit Start Time 08:15 Visit Stop Time 09:10 Total Visit Minutes 53 Visit Number 6 Number of SNORKELLING INSTRUCTOR Visits 0 PT-OP-B Current Condition Start: 06/15/18 17:24 Freq: Status: Active Protocol: Document 06/15/18 17:20 EA (Rec: 06/16/18 08:57 EA [id number]) Current Condition History of Current Condition Onset Date 3 years ago (Chronic) Current Complaints Left knee pain History of Current Condition Patient reports present left localized knee complaint has been chronic in the last three years with a history of ACL reconstruction surgery ( patellar tendon graft) 22 years ago. Patient denies any knee injury in the last 5 years. Pt states that she has been using ICE and knee brace in the last three years to managed the condition. She mentioned three marathon in the last ten years and pain is manageable, however, pain and swelling anytime she does running lessen her ability to progress more. States diagnostic imaging performed with arthritic condition of the knee. Prior Treatments and Tests Formal PT to left knee after surgery 22 years ago (last longer due to infection) Future Testing and Treatments Planned None identified. Treatment Goals Patient/Caregiver Goals Patient would like to be able to run without aggravating the knee and with no increase of symptoms. 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 Function- Recreation/Hobbies 3x/wk crossfit training 3-5 miles/ running per week Current Functional Impairments (Reported) Functional Limitations- ADL's Independent with difficulty in full squat activities Functional Limitations- Mobility/Gait Indep with no assistive device Functional Limitations- Work/School Indepedent Functional Limitations- Recreation/ Unable to run more than three Hobbies mile a week due increased in symptoms Difficulty in full squat crossfit activities PT-OP-C Subjective Start: 06/15/18 17:24 Freq: Status: Active Protocol: Document 07/06/18 08:23 EA (Rec: 07/06/18 08:26 EA [id number]) OP-PT Subjective Patient Comments Patient Comments Pt reports no adversed reaction from last session; states unable to perform HEP as what recommended due to errands at home. Patient Reported Progress Improving PT-OP-E Functional Tests Start: 06/15/18 17:24 Freq: Status: Active Protocol: Document 06/15/18 17:30 EA (Rec: 06/16/18 09:09 EA [id number]) Functional Tests Squat Test Score Single leg: Right able without difficulty. Left 30 degrees with difficulty PT-OP-F Manual Assessment Start: 06/15/18 17:24 Freq: Status: Active Protocol: Document 06/15/18 17:20 EA (Rec: 06/16/18 08:57 EA [id number]) Manual Assessments Soft Tissue Assessment Soft Tissue Mobility Assessment Tight left quads and slight both hamstrings tightness. Joint Mobility Assessment Joint Mobility Assessment Normal PT-OP-G Mobility & Gait Start: 06/15/18 17:24 Freq: Status: Active Protocol: Document 06/15/18 17:20 EA (Rec: 06/16/18 08:57 EA [id number]) Stair Climbing Evaluation Comments Stair Climbing Comments Slight antalgic with decreased stance phase to left PT-OP-J Posture/Palpation/Skin Start: 06/15/18 17:24 Freq: Status: Active Protocol: Document 06/15/18 17:20 EA (Rec: 06/16/18 08:57 EA [id number]) Posture Evaluation Comments Posture Comments Valgus to both knees with left is more than right Palpation Assessment Location One Palpation Location Left quads tightness, hip flexor, and ITB Palpation Findings Soft Tissue Tightness Tenderness Palpation Details Patellar crepitus, left. Grade 2/5 medial patellar ligament, lateral hamstring tendon insertion. PT-OP-K Range of Motion Start: 06/15/18 17:24 Freq: Status: Active Protocol: Document 06/15/18 17:20 EA (Rec: 06/16/18 08:57 EA [id number]) Knee Goniometric Range of Motion Knee Measured in Degrees Right Knee ROM WFL Yes Patient Position Supine Flexion Active (degrees) 145 Left Patient Position Supine Flexion Active (degrees) 112 Flexion Passive (degrees) 120 Extension Active (degrees) 0 Knee ROM Limitations Knee ROM Limitations Soft Tissue Tightness Pain PT-OP-L Special Tests Start: 06/15/18 17:24 Freq: Status: Active Protocol: Document 06/15/18 17:30 EA (Rec: 06/16/18 09:09 EA [id number]) Special Tests Knee Special Tests Anterior Draw Test Results negative Sharp's Compression Test Results positive Samia Test Test Results negative Hughston Pica Test Test Results negative Patellar Grind Test Test Results positive Korin's Test Test Results left positive Erwin Test Results both LE positive Martin's Sign Test Results Left knee positive PT-OP-M Strength Start: 06/15/18 17:24 Freq: Status: Active Protocol: Document 06/15/18 17:20 EA (Rec: 06/16/18 08:57 EA [id number]) Hip Strength Hip Manual Muscle Testing Right Reason Not Measured WFL Left Reason Not Measured WFL Knee Strength Knee Manual Muscle Testing Right Reason Not Measured WFL Left Flexion (S2) 4 Good Extension (L3) 4+ Good+ PT-OP-Q Treatments Start: 06/15/18 17:24 Freq: Status: Active Protocol: Document 07/06/18 08:23 EA (Rec: 07/06/18 08:26 EA [id number]) Cardio Equipment Bicycle (Upright) Duration (Minutes) 7 Resistance 5 Seat Position 2 Gym Equipment Cable Column (Body Solid) Leg Extension Details single leg: Left Resistance 10-15 Reps/Time x 8-12 reps Shuttle Recovery Unilateral Squats Resistance 3.5-5cords Shuttle Recovery Platform Stable Reps/Time x 15 reps Bilateral Squats Resistance 5 cords Shuttle Recovery Platform Stable Reps/Time x 15 reps Therapeutic Exercises Supine Exercises 1 Supine Exercise Name Quads stretch: heel slide Side left Reps/Minutes x 30SH x 2 Comments foot on table surface Prone Exercises 1 Prone Exercise Name quads stretch Side left Reps/Minutes x 30SH x 2 Standing Exercises 5 Standing Exercise Name 30 lbs cable single leg squat Reps/Minutes x 10 reps 4 Standing Exercise Name Half lunge quad stretch Comments 2pillows behind to sit with full stretch 2 Standing Exercise Name FWD lunges Resistance 8# Reps/Minutes x 12 ft x 3 Comments Front raises 1 Standing Exercise Name side step squat Resistance 5 lbs Reps/Minutes 12 ft x 3 lines Comments pain at the 3line Other Exercises 1 Other Exercise Name 6 left Eccentric Side left Comments 6 right foot lead descent with no HS with controlled pelvis PT-OP-R Modalities Start: 06/15/18 17:24 Freq: Status: Active Protocol: Document 07/06/18 08:23 EA (Rec: 07/06/18 08:26 EA [id number]) Hot Pack/Cold Pack Treatment Cold Pack Location left knee Patient Position Hooklying Treatment Duration (minutes) 15 Patient Tolerance Good PT-OP-T Assessment and Plan Start: 06/15/18 17:24 Freq: Status: Active Protocol: Document 07/06/18 09:00 EA (Rec: 07/06/18 09:01 EA [id number]) Physical Therapy Assessment Assessment Summary Assessment Noted 124 degrees to passive. Improve strength and ROM noted at this time. Patient cont. to progress. Physical Therapy Plan Next Visit Focus/Plan Next Note Type Treatment Note Next Visit Plan Continue with current plan. progress as able.
--- NOTE | 2018-07-08 14:33 | PT.OTN ---
Current Diagnoses Pain in left knee (07/08/18) Physical Therapy Treatment Note PT-OP-A Visit Information Start: 06/15/18 17:24 Freq: Status: Active Protocol: Document 07/08/18 11:11 EA (Rec: 07/08/18 11:16 EA [id number]) Out-Patient Physical Therapy Visit Information Visit Information Visit Type Treatment Note Visit Start Time 08:15 Visit Stop Time 09:10 Total Visit Minutes 55 Visit Number 7 Number of INVENTORY CONTROL SUPERVISOR Visits 0 PT-OP-B Current Condition Start: 06/15/18 17:24 Freq: Status: Active Protocol: Document 06/15/18 17:20 EA (Rec: 06/16/18 08:57 EA [id number]) Current Condition History of Current Condition Onset Date 3 years ago (Chronic) Current Complaints Left knee pain History of Current Condition Patient reports present left localized knee complaint has been chronic in the last three years with a history of ACL reconstruction surgery ( patellar tendon graft) 22 years ago. Patient denies any knee injury in the last 5 years. Pt states that she has been using ICE and knee brace in the last three years to managed the condition. She mentioned three marathon in the last ten years and pain is manageable, however, pain and swelling anytime she does running lessen her ability to progress more. States diagnostic imaging performed with arthritic condition of the knee. Prior Treatments and Tests Formal PT to left knee after surgery 22 years ago (last longer due to infection) Future Testing and Treatments Planned None identified. Treatment Goals Patient/Caregiver Goals Patient would like to be able to run without aggravating the knee and with no increase of symptoms. 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 3x/wk crossfit training 3-5 miles/ running per week Current Functional Impairments (Reported) Functional Limitations- ADL's Independent with difficulty in full squat activities Functional Limitations- Mobility/Gait Indep with no assistive device Functional Limitations- Work/School Indepedent Functional Limitations- Recreation/ Unable to run more than three Hobbies mile a week due increased in symptoms Difficulty in full squat crossfit activities PT-OP-C Subjective Start: 06/15/18 17:24 Freq: Status: Active Protocol: Document 07/08/18 11:11 EA (Rec: 07/08/18 11:16 EA [id number]) OP-PT Subjective Patient Comments Patient Comments Pt reports rest yesterday as recommended; states no pain complaint and feels knee is improving well. Patient Reported Progress Improving PT-OP-E Functional Tests Start: 06/15/18 17:24 Freq: Status: Active Protocol: Document 06/15/18 17:30 EA (Rec: 06/16/18 09:09 EA [id number]) Functional Tests Squat Test Score Single leg: Right able without difficulty. Left 30 degrees with difficulty PT-OP-F Manual Assessment Start: 06/15/18 17:24 Freq: Status: Active Protocol: Document 06/15/18 17:20 EA (Rec: 06/16/18 08:57 EA [id number]) Manual Assessments Soft Tissue Assessment Soft Tissue Mobility Assessment Tight left quads and slight both hamstrings tightness. Joint Mobility Assessment Joint Mobility Assessment Normal PT-OP-G Mobility & Gait Start: 06/15/18 17:24 Freq: Status: Active Protocol: Document 06/15/18 17:20 EA (Rec: 06/16/18 08:57 EA [id number]) Stair Climbing Evaluation Comments Stair Climbing Comments Slight antalgic with decreased stance phase to left PT-OP-J Posture/Palpation/Skin Start: 06/15/18 17:24 Freq: Status: Active Protocol: Document 06/15/18 17:20 EA (Rec: 06/16/18 08:57 EA [id number]) Posture Evaluation Comments Posture Comments Valgus to both knees with left is more than right Palpation Assessment Location One Palpation Location Left quads tightness, hip flexor, and ITB Palpation Findings Soft Tissue Tightness Tenderness Palpation Details Patellar crepitus, left. Grade 2/5 medial patellar ligament, lateral hamstring tendon insertion. PT-OP-K Range of Motion Start: 06/15/18 17:24 Freq: Status: Active Protocol: Document 06/15/18 17:20 EA (Rec: 06/16/18 08:57 EA [id number]) Knee Goniometric Range of Motion Knee Measured in Degrees Right Knee ROM WFL Yes Patient Position Supine Flexion Active (degrees) 145 Left Patient Position Supine Flexion Active (degrees) 112 Flexion Passive (degrees) 120 Extension Active (degrees) 0 Knee ROM Limitations Knee ROM Limitations Soft Tissue Tightness Pain PT-OP-L Special Tests Start: 06/15/18 17:24 Freq: Status: Active Protocol: Document 06/15/18 17:30 EA (Rec: 06/16/18 09:09 EA [id number]) Special Tests Knee Special Tests Anterior Draw Test Results negative Sharp's Compression Test Results positive Samia Test Test Results negative Hughston Pica Test Test Results negative Patellar Grind Test Test Results positive Korin's Test Test Results left positive Erwin Test Results both LE positive Martin's Sign Test Results Left knee positive PT-OP-M Strength Start: 06/15/18 17:24 Freq: Status: Active Protocol: Document 06/15/18 17:20 EA (Rec: 06/16/18 08:57 EA [id number]) Hip Strength Hip Manual Muscle Testing Right Reason Not Measured WFL Left Reason Not Measured WFL Knee Strength Knee Manual Muscle Testing Right Reason Not Measured WFL Left Flexion (S2) 4 Good Extension (L3) 4+ Good+ PT-OP-Q Treatments Start: 06/15/18 17:24 Freq: Status: Active Protocol: Document 07/08/18 11:11 EA (Rec: 07/08/18 11:16 EA [id number]) Cardio Equipment Recumbent Bicycle Duration (Minutes) 7 Resistance 6 Seat Position 2 Gym Equipment Cable Column (Body Solid) Leg Extension Details single leg: Left Resistance 30 lbs Reps/Time x 8-12 reps x 2 Shuttle Recovery Unilateral Squats Resistance 3.5-5cords Shuttle Recovery Platform Stable Reps/Time x 15 reps Bilateral Squats Resistance 6 cords Shuttle Recovery Platform Stable Reps/Time x 15 reps Therapeutic Exercises Supine Exercises 1 Supine Exercise Name Quads stretch: heel slide Side left Reps/Minutes x 30SH x 2 Comments foot on table surface Prone Exercises 1 Prone Exercise Name quads stretch Side left Reps/Minutes x 30SH x 2 Standing Exercises 6 Standing Exercise Name single leg squat with slight hand support for balance Side bilateral Reps/Minutes x 10 reps x 2 sets 5 Standing Exercise Name 30 lbs cable single leg squat Reps/Minutes x 10 reps 4 Standing Exercise Name Half lunge quad stretch Comments 2pillows behind to sit with full stretch 3 Standing Exercise Name side step squat Side bilateral Resistance 10 lbs Reps/Minutes x 10 ft x 3 laps Comments w/ shoulder front raises 2 Standing Exercise Name FWD lunges Resistance 8# Reps/Minutes x 12 ft x 3 Comments Front raises Other Exercises 2 Other Exercise Name single leg hopped alternate Reps/Minutes x 30 ft x2 laps 1 Other Exercise Name 6 left Eccentric Side left Comments 6 right foot lead descent with no HS with controlled pelvis PT-OP-R Modalities Start: 06/15/18 17:24 Freq: Status: Active Protocol: Document 07/08/18 11:11 EA (Rec: 07/08/18 11:16 EA [id number]) Hot Pack/Cold Pack Treatment Cold Pack Location left knee Patient Position Hooklying Treatment Duration (minutes) 15 Patient Tolerance Good PT-OP-T Assessment and Plan Start: 06/15/18 17:24 Freq: Status: Active Protocol: Document 07/08/18 11:11 EA (Rec: 07/08/18 11:16 EA [id number]) Physical Therapy Assessment Assessment Summary Assessment Improved strength with single leg exercises. Letf knee PROM is now 0-126 in supine. Patient cont to progress. Physical Therapy Plan Next Visit Focus/Plan Next Note Type Treatment Note Next Visit Plan Continue with current plan. progress as able.
--- NOTE | 2018-07-13 15:49 | PT.OTN ---
Current Diagnoses Pain in left knee (07/13/18) Physical Therapy Treatment Note PT-OP-A Visit Information Start: 06/15/18 17:24 Freq: Status: Active Protocol: Document 07/13/18 13:39 EA (Rec: 07/13/18 13:40 EA [id number]) Out-Patient Physical Therapy Visit Information Visit Information Visit Start Time 13:00 Visit Stop Time 13:53 Total Visit Minutes 53 Visit Number 8 PT-OP-B Current Condition Start: 06/15/18 17:24 Freq: Status: Active Protocol: Document 06/15/18 17:20 EA (Rec: 06/16/18 08:57 EA [id number]) Current Condition History of Current Condition Onset Date 3 years ago (Chronic) Current Complaints Left knee pain History of Current Condition Patient reports present left localized knee complaint has been chronic in the last three years with a history of ACL reconstruction surgery ( patellar tendon graft) 22 years ago. Patient denies any knee injury in the last 5 years. Pt states that she has been using ICE and knee brace in the last three years to managed the condition. She mentioned three marathon in the last ten years and pain is manageable, however, pain and swelling anytime she does running lessen her ability to progress more. States diagnostic imaging performed with arthritic condition of the knee. Prior Treatments and Tests Formal PT to left knee after surgery 22 years ago (last longer due to infection) Future Testing and Treatments Planned None identified. Treatment Goals Patient/Caregiver Goals Patient would like to be able to run without aggravating the knee and with no increase of symptoms. 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) Baseline Function- Recreation/Hobbies 3x/wk crossfit training 3-5 miles/ running per week Current Functional Impairments (Reported) Functional Limitations- ADL's Independent with difficulty in full squat activities Functional Limitations- Mobility/Gait Indep with no assistive device Functional Limitations- Work/School Indepedent Functional Limitations- Recreation/ Unable to run more than three Hobbies mile a week due increased in symptoms Difficulty in full squat crossfit activities PT-OP-C Subjective Start: 06/15/18 17:24 Freq: Status: Active Protocol: Document 07/13/18 13:39 EA (Rec: 07/13/18 13:40 EA [id number]) OP-PT Subjective Patient Comments Patient Comments Pt reports unable to do HEP as she busy in the past days; states no knee pain complaint since the last session. PT-OP-E Functional Tests Start: 06/15/18 17:24 Freq: Status: Active Protocol: Document 06/15/18 17:30 EA (Rec: 06/16/18 09:09 EA [id number]) Functional Tests Squat Test Score Single leg: Right able without difficulty. Left 30 degrees with difficulty PT-OP-F Manual Assessment Start: 06/15/18 17:24 Freq: Status: Active Protocol: Document 06/15/18 17:20 EA (Rec: 06/16/18 08:57 EA [id number]) Manual Assessments Soft Tissue Assessment Soft Tissue Mobility Assessment Tight left quads and slight both hamstrings tightness. Joint Mobility Assessment Joint Mobility Assessment Normal PT-OP-G Mobility & Gait Start: 06/15/18 17:24 Freq: Status: Active Protocol: Document 06/15/18 17:20 EA (Rec: 06/16/18 08:57 EA [id number]) Stair Climbing Evaluation Comments Stair Climbing Comments Slight antalgic with decreased stance phase to left PT-OP-J Posture/Palpation/Skin Start: 06/15/18 17:24 Freq: Status: Active Protocol: Document 06/15/18 17:20 EA (Rec: 06/16/18 08:57 EA [id number]) Posture Evaluation Comments Posture Comments Valgus to both knees with left is more than right Palpation Assessment Location One Palpation Location Left quads tightness, hip flexor, and ITB Palpation Findings Soft Tissue Tightness Tenderness Palpation Details Patellar crepitus, left. Grade 2/5 medial patellar ligament, lateral hamstring tendon insertion. PT-OP-K Range of Motion Start: 06/15/18 17:24 Freq: Status: Active Protocol: Document 06/15/18 17:20 EA (Rec: 06/16/18 08:57 EA [id number]) Knee Goniometric Range of Motion Knee Measured in Degrees Right Knee ROM WFL Yes Patient Position Supine Flexion Active (degrees) 145 Left Patient Position Supine Flexion Active (degrees) 112 Flexion Passive (degrees) 120 Extension Active (degrees) 0 Knee ROM Limitations Knee ROM Limitations Soft Tissue Tightness Pain PT-OP-L Special Tests Start: 06/15/18 17:24 Freq: Status: Active Protocol: Document 06/15/18 17:30 EA (Rec: 06/16/18 09:09 EA [id number]) Special Tests Knee Special Tests Anterior Draw Test Results negative Sharp's Compression Test Results positive Samia Test Test Results negative Hughston Pica Test Test Results negative Patellar Grind Test Test Results positive Korin's Test Test Results left positive Erwin Test Results both LE positive Martin's Sign Test Results Left knee positive PT-OP-M Strength Start: 06/15/18 17:24 Freq: Status: Active Protocol: Document 06/15/18 17:20 EA (Rec: 06/16/18 08:57 EA [id number]) Hip Strength Hip Manual Muscle Testing Right Reason Not Measured WFL Left Reason Not Measured WFL Knee Strength Knee Manual Muscle Testing Right Reason Not Measured WFL Left Flexion (S2) 4 Good Extension (L3) 4+ Good+ PT-OP-Q Treatments Start: 06/15/18 17:24 Freq: Status: Active Protocol: Document 07/13/18 13:40 EA (Rec: 07/13/18 13:44 EA [id number]) Cardio Equipment Bicycle (Upright) Duration (Minutes) 5 Resistance 5 Seat Position 2 Gym Equipment Cable Column (Body Solid) Leg Extension Details single leg: Left Resistance 20-40 lbs Reps/Time x 8-12 reps x 3 Shuttle Recovery Unilateral Squats Resistance 3.5-5cords Shuttle Recovery Platform Stable Reps/Time x 15 reps Bilateral Squats Resistance 6 cords Shuttle Recovery Platform Stable Reps/Time x 15 reps Therapeutic Exercises Supine Exercises 1 Supine Exercise Name Quads stretch: heel slide Side left Reps/Minutes x 30SH x 2 Comments foot on table surface Prone Exercises 1 Prone Exercise Name quads stretch Side left Reps/Minutes x 30SH x 2 Standing Exercises 6 Standing Exercise Name single leg squat with slight hand support for balance Side bilateral Reps/Minutes x 10 reps x 2 sets 5 Standing Exercise Name 30 lbs cable single leg squat Reps/Minutes x 10 reps x 2 sets 4 Standing Exercise Name Half lunge quad stretch Comments 2pillows behind to sit with full stretch 2 Standing Exercise Name FWD lunges Resistance 8# Reps/Minutes x 12 ft x 3 Comments Front raises 1 Standing Exercise Name Steady lunges Resistance 10# each hand Reps/Minutes x 8 reps x 2 sets Other Exercises 2 Other Exercise Name single leg hopped alternate Reps/Minutes x 30 ft x2 laps 1 Other Exercise Name 6-8 left Eccentric Side left Comments 6-8 right foot lead descent with no HS with controlled pelvis PT-OP-R Modalities Start: 06/15/18 17:24 Freq: Status: Active Protocol: Document 07/13/18 13:40 EA (Rec: 07/13/18 13:44 EA [id number]) Hot Pack/Cold Pack Treatment Cold Pack Location left knee Patient Position Hooklying Treatment Duration (minutes) 15 Patient Tolerance Good PT-OP-T Assessment and Plan Start: 06/15/18 17:24 Freq: Status: Active Protocol: Document 07/13/18 13:40 EA (Rec: 07/13/18 13:44 EA [id number]) Physical Therapy Assessment Assessment Summary Assessment Tolerated treatment well with no anterior knee discomfort. Advised to cont stretching quads at home. Physical Therapy Plan Next Visit Focus/Plan Next Note Type Treatment Note Next Visit Plan Continue with current plan. progress as able.
--- NOTE | 2018-07-15 10:25 | PT.OTN ---
Current Diagnoses Pain in left knee (07/15/18) Physical Therapy Treatment Note PT-OP-A Visit Information Start: 06/15/18 17:24 Freq: Status: Active Protocol: Document 07/15/18 08:55 EA (Rec: 07/15/18 08:59 EA [id number]) Out-Patient Physical Therapy Visit Information Visit Information Visit Start Time 07:30 Visit Stop Time 08:20 Visit Number 9 PT-OP-B Current Condition Start: 06/15/18 17:24 Freq: Status: Active Protocol: Document 06/15/18 17:20 EA (Rec: 06/16/18 08:57 EA [id number]) Current Condition History of Current Condition Onset Date 3 years ago (Chronic) Current Complaints Left knee pain History of Current Condition Patient reports present left localized knee complaint has been chronic in the last three years with a history of ACL reconstruction surgery ( patellar tendon graft) 22 years ago. Patient denies any knee injury in the last 5 years. Pt states that she has been using ICE and knee brace in the last three years to managed the condition. She mentioned three marathon in the last ten years and pain is manageable, however, pain and swelling anytime she does running lessen her ability to progress more. States diagnostic imaging performed with arthritic condition of the knee. Prior Treatments and Tests Formal PT to left knee after surgery 22 years ago (last longer due to infection) Future Testing and Treatments Planned None identified. Treatment Goals Patient/Caregiver Goals Patient would like to be able to run without aggravating the knee and with no increase of symptoms. 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 Function- Recreation/Hobbies 3x/wk crossfit training 3-5 miles/ running per week Current Functional Impairments (Reported) Functional Limitations- ADL's Independent with difficulty in full squat activities Functional Limitations- Mobility/Gait Indep with no assistive device Functional Limitations- Work/School Indepedent Functional Limitations- Recreation/ Unable to run more than three Hobbies mile a week due increased in symptoms Difficulty in full squat crossfit activities PT-OP-C Subjective Start: 06/15/18 17:24 Freq: Status: Active Protocol: Document 07/15/18 08:55 EA (Rec: 07/15/18 08:59 EA [id number]) OP-PT Subjective Patient Comments Patient Comments Pt reports did a bit of running; states no aggravations noted int he past few days. Patient Reported Progress Improving PT-OP-E Functional Tests Start: 06/15/18 17:24 Freq: Status: Active Protocol: Document 06/15/18 17:30 EA (Rec: 06/16/18 09:09 EA [id number]) Functional Tests Squat Test Score Single leg: Right able without difficulty. Left 30 degrees with difficulty PT-OP-F Manual Assessment Start: 06/15/18 17:24 Freq: Status: Active Protocol: Document 06/15/18 17:20 EA (Rec: 06/16/18 08:57 EA [id number]) Manual Assessments Soft Tissue Assessment Soft Tissue Mobility Assessment Tight left quads and slight both hamstrings tightness. Joint Mobility Assessment Joint Mobility Assessment Normal PT-OP-G Mobility & Gait Start: 06/15/18 17:24 Freq: Status: Active Protocol: Document 06/15/18 17:20 EA (Rec: 06/16/18 08:57 EA [id number]) Stair Climbing Evaluation Comments Stair Climbing Comments Slight antalgic with decreased stance phase to left PT-OP-J Posture/Palpation/Skin Start: 06/15/18 17:24 Freq: Status: Active Protocol: Document 06/15/18 17:20 EA (Rec: 06/16/18 08:57 EA [id number]) Posture Evaluation Comments Posture Comments Valgus to both knees with left is more than right Palpation Assessment Location One Palpation Location Left quads tightness, hip flexor, and ITB Palpation Findings Soft Tissue Tightness Tenderness Palpation Details Patellar crepitus, left. Grade 2/5 medial patellar ligament, lateral hamstring tendon insertion. PT-OP-K Range of Motion Start: 06/15/18 17:24 Freq: Status: Active Protocol: Document 06/15/18 17:20 EA (Rec: 06/16/18 08:57 EA [id number]) Knee Goniometric Range of Motion Knee Measured in Degrees Right Knee ROM WFL Yes Patient Position Supine Flexion Active (degrees) 145 Left Patient Position Supine Flexion Active (degrees) 112 Flexion Passive (degrees) 120 Extension Active (degrees) 0 Knee ROM Limitations Knee ROM Limitations Soft Tissue Tightness Pain PT-OP-L Special Tests Start: 06/15/18 17:24 Freq: Status: Active Protocol: Document 06/15/18 17:30 EA (Rec: 06/16/18 09:09 EA [id number]) Special Tests Knee Special Tests Anterior Draw Test Results negative Sharp's Compression Test Results positive Samia Test Test Results negative Hughston Pica Test Test Results negative Patellar Grind Test Test Results positive Korin's Test Test Results left positive Erwin Test Results both LE positive Martin's Sign Test Results Left knee positive PT-OP-M Strength Start: 06/15/18 17:24 Freq: Status: Active Protocol: Document 06/15/18 17:20 EA (Rec: 06/16/18 08:57 EA [id number]) Hip Strength Hip Manual Muscle Testing Right Reason Not Measured WFL Left Reason Not Measured WFL Knee Strength Knee Manual Muscle Testing Right Reason Not Measured WFL Left Flexion (S2) 4 Good Extension (L3) 4+ Good+ PT-OP-Q Treatments Start: 06/15/18 17:24 Freq: Status: Active Protocol: Document 07/15/18 08:55 EA (Rec: 07/15/18 08:59 EA [id number]) Cardio Equipment Treadmill Duration (Minutes) 10 Speed interval Incline 4-8 Other interval Gym Equipment Cable Column (Body Solid) Leg Extension Details single leg: Left Resistance 20-45 lbs Reps/Time x 8-12 reps x 3 Shuttle Recovery Unilateral Squats Details pyometrics to left side Resistance 2-5cords Shuttle Recovery Platform Stable Reps/Time x 15 reps Bilateral Squats Resistance 6 cords Shuttle Recovery Platform Stable Reps/Time x 15 reps Therapeutic Exercises Standing Exercises 6 Standing Exercise Name single leg squat with slight hand support for balance Side bilateral Reps/Minutes x 10 reps x 2 sets 5 Standing Exercise Name 30 lbs cable single leg squat Reps/Minutes x 10 reps x 2 sets 4 Standing Exercise Name Half lunge quad stretch Comments 2pillows behind to sit with full stretch 2 Standing Exercise Name FWD lunges Resistance 8# Reps/Minutes x 12 ft x 3 Comments Front raises Other Exercises 2 Other Exercise Name single leg hopped alternate Reps/Minutes x 30 ft x3 laps 1 Other Exercise Name 6-8 left Eccentric Side left Comments 6-8 right foot lead descent with no HS with controlled pelvis PT-OP-R Modalities Start: 06/15/18 17:24 Freq: Status: Active Protocol: Document 07/15/18 08:55 EA (Rec: 07/15/18 08:59 EA [id number]) Hot Pack/Cold Pack Treatment Cold Pack Location left knee Patient Position Hooklying Treatment Duration (minutes) 15 Patient Tolerance Good PT-OP-T Assessment and Plan Start: 06/15/18 17:24 Freq: Status: Active Protocol: Document 07/15/18 08:55 EA (Rec: 07/15/18 08:59 EA [id number]) Physical Therapy Assessment Assessment Summary Assessment Noted improved steps LLE descent/eccentric with no discomfort and instability. Patient ran well. Patient is progressing well. Physical Therapy Plan Next Visit Focus/Plan Next Note Type Treatment Note Next Visit Plan Continue with current plan. progress as able. Plyometrics
--- NOTE | 2018-07-21 13:46 | PT.OTN ---
Current Diagnoses Pain in left knee (07/21/18) Physical Therapy Treatment Note PT-OP-A Visit Information Start: 06/15/18 17:24 Freq: Status: Active Protocol: Document 07/21/18 12:57 EA (Rec: 07/21/18 13:00 EA [id number]) Out-Patient Physical Therapy Visit Information Visit Information Visit Start Time 13:00 Visit Stop Time 13:53 Total Visit Minutes 53 Visit Number 10 PT-OP-B Current Condition Start: 06/15/18 17:24 Freq: Status: Active Protocol: Document 06/15/18 17:20 EA (Rec: 06/16/18 08:57 EA [id number]) Current Condition History of Current Condition Onset Date 3 years ago (Chronic) Current Complaints Left knee pain History of Current Condition Patient reports present left localized knee complaint has been chronic in the last three years with a history of ACL reconstruction surgery ( patellar tendon graft) 22 years ago. Patient denies any knee injury in the last 5 years. Pt states that she has been using ICE and knee brace in the last three years to managed the condition. She mentioned three marathon in the last ten years and pain is manageable, however, pain and swelling anytime she does running lessen her ability to progress more. States diagnostic imaging performed with arthritic condition of the knee. Prior Treatments and Tests Formal PT to left knee after surgery 22 years ago (last longer due to infection) Future Testing and Treatments Planned None identified. Treatment Goals Patient/Caregiver Goals Patient would like to be able to run without aggravating the knee and with no increase of symptoms. 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- Recreation/Hobbies 3x/wk crossfit training 3-5 miles/ running per week Current Functional Impairments (Reported) Functional Limitations- ADL's Independent with difficulty in full squat activities Functional Limitations- Mobility/Gait Indep with no assistive device Functional Limitations- Work/School Indepedent Functional Limitations- Recreation/ Unable to run more than three Hobbies mile a week due increased in symptoms Difficulty in full squat crossfit activities PT-OP-C Subjective Start: 06/15/18 17:24 Freq: Status: Active Protocol: Document 07/21/18 12:57 EA (Rec: 07/21/18 13:00 EA [id number]) OP-PT Subjective Patient Comments Patient Comments Pt reports performed running and HEP with no increased in symptoms except when kneeling to affected side. Patient Reported Progress Improving PT-OP-E Functional Tests Start: 06/15/18 17:24 Freq: Status: Active Protocol: Document 06/15/18 17:30 EA (Rec: 06/16/18 09:09 EA [id number]) Functional Tests Squat Test Score Single leg: Right able without difficulty. Left 30 degrees with difficulty PT-OP-F Manual Assessment Start: 06/15/18 17:24 Freq: Status: Active Protocol: Document 06/15/18 17:20 EA (Rec: 06/16/18 08:57 EA [id number]) Manual Assessments Soft Tissue Assessment Soft Tissue Mobility Assessment Tight left quads and slight both hamstrings tightness. Joint Mobility Assessment Joint Mobility Assessment Normal PT-OP-G Mobility & Gait Start: 06/15/18 17:24 Freq: Status: Active Protocol: Document 06/15/18 17:20 EA (Rec: 06/16/18 08:57 EA [id number]) Stair Climbing Evaluation Comments Stair Climbing Comments Slight antalgic with decreased stance phase to left PT-OP-J Posture/Palpation/Skin Start: 06/15/18 17:24 Freq: Status: Active Protocol: Document 06/15/18 17:20 EA (Rec: 06/16/18 08:57 EA [id number]) Posture Evaluation Comments Posture Comments Valgus to both knees with left is more than right Palpation Assessment Location One Palpation Location Left quads tightness, hip flexor, and ITB Palpation Findings Soft Tissue Tightness Tenderness Palpation Details Patellar crepitus, left. Grade 2/5 medial patellar ligament, lateral hamstring tendon insertion. PT-OP-K Range of Motion Start: 06/15/18 17:24 Freq: Status: Active Protocol: Document 06/15/18 17:20 EA (Rec: 06/16/18 08:57 EA [id number]) Knee Goniometric Range of Motion Knee Measured in Degrees Right Knee ROM WFL Yes Patient Position Supine Flexion Active (degrees) 145 Left Patient Position Supine Flexion Active (degrees) 112 Flexion Passive (degrees) 120 Extension Active (degrees) 0 Knee ROM Limitations Knee ROM Limitations Soft Tissue Tightness Pain PT-OP-L Special Tests Start: 06/15/18 17:24 Freq: Status: Active Protocol: Document 06/15/18 17:30 EA (Rec: 06/16/18 09:09 EA [id number]) Special Tests Knee Special Tests Anterior Draw Test Results negative Sharp's Compression Test Results positive Samia Test Test Results negative Hughston Pica Test Test Results negative Patellar Grind Test Test Results positive Korin's Test Test Results left positive Erwin Test Results both LE positive Martin's Sign Test Results Left knee positive PT-OP-M Strength Start: 06/15/18 17:24 Freq: Status: Active Protocol: Document 06/15/18 17:20 EA (Rec: 06/16/18 08:57 EA [id number]) Hip Strength Hip Manual Muscle Testing Right Reason Not Measured WFL Left Reason Not Measured WFL Knee Strength Knee Manual Muscle Testing Right Reason Not Measured WFL Left Flexion (S2) 4 Good Extension (L3) 4+ Good+ PT-OP-Q Treatments Start: 06/15/18 17:24 Freq: Status: Active Protocol: Document 07/21/18 12:57 EA (Rec: 07/21/18 13:00 EA [id number]) Cardio Equipment Bicycle (Upright) Duration (Minutes) 5 Resistance 5 Seat Position 2 Gym Equipment Cable Column (Body Solid) Leg Extension Details single leg: Left Resistance 20-45 lbs Reps/Time x 8-12 reps x 3 Shuttle Recovery Unilateral Squats Details pyometrics to left side Resistance 2-5cords Shuttle Recovery Platform Stable Reps/Time x 15 reps Bilateral Squats Resistance 6 cords Shuttle Recovery Platform Stable Reps/Time x 15 reps Therapeutic Exercises Prone Exercises 1 Prone Exercise Name quads stretch Side left Reps/Minutes x 30SH x 2 Standing Exercises 6 Standing Exercise Name single leg squat with slight hand support for balance Side bilateral Reps/Minutes x 10 reps x 2 sets 5 Standing Exercise Name 30 lbs cable single leg squat Reps/Minutes x 10 reps x 2 sets 4 Standing Exercise Name Half lunge quad stretch Comments 2pillows behind to sit with full stretch 3 Standing Exercise Name side step squat Side bilateral Resistance 10 lbs Reps/Minutes x 10 ft x 3 laps Comments w/ shoulder front raises 2 Standing Exercise Name FWD lunges Resistance 8# Reps/Minutes x 12 ft x 3 Comments Front raises 1 Standing Exercise Name Steady lunges Resistance 10# each hand Reps/Minutes x 8 reps x 2 sets Other Exercises 2 Other Exercise Name single leg hopped alternate Reps/Minutes x 30 ft x3 laps 1 Other Exercise Name 6-12 left Eccentric Side left Comments 6-8 right foot lead descent with no HS with controlled pelvis PT-OP-R Modalities Start: 06/15/18 17:24 Freq: Status: Active Protocol: Document 07/21/18 12:57 EA (Rec: 07/21/18 13:00 EA [id number]) Hot Pack/Cold Pack Treatment Cold Pack Location left knee Patient Position Hooklying Treatment Duration (minutes) 15 Patient Tolerance Good PT-OP-T Assessment and Plan Start: 06/15/18 17:24 Freq: Status: Active Protocol: Document 07/21/18 12:57 EA (Rec: 07/21/18 13:00 EA [id number]) Physical Therapy Assessment Assessment Summary Assessment Pt tolerated treatment well with slight discomfort only with lunges but improved after stride length adjustment. Physical Therapy Plan Next Visit Focus/Plan Next Note Type Treatment Note Next Visit Plan Continue with current plan. progress as able. Plyometrics
--- NOTE | 2018-07-27 08:54 | PT.OTN ---
Current Diagnoses Pain in left knee (07/27/18) Physical Therapy Treatment Note PT-OP-A Visit Information Start: 06/15/18 17:24 Freq: Status: Active Protocol: Document 07/27/18 07:39 EA (Rec: 07/27/18 08:13 EA [id number]) Out-Patient Physical Therapy Visit Information Visit Information Visit Start Time 07:30 Visit Stop Time 08:20 Visit Number 11 PT-OP-B Current Condition Start: 06/15/18 17:24 Freq: Status: Active Protocol: Document 06/15/18 17:20 EA (Rec: 06/16/18 08:57 EA [id number]) Current Condition History of Current Condition Onset Date 3 years ago (Chronic) Current Complaints Left knee pain History of Current Condition Patient reports present left localized knee complaint has been chronic in the last three years with a history of ACL reconstruction surgery ( patellar tendon graft) 22 years ago. Patient denies any knee injury in the last 5 years. Pt states that she has been using ICE and knee brace in the last three years to managed the condition. She mentioned three marathon in the last ten years and pain is manageable, however, pain and swelling anytime she does running lessen her ability to progress more. States diagnostic imaging performed with arthritic condition of the knee. Prior Treatments and Tests Formal PT to left knee after surgery 22 years ago (last longer due to infection) Future Testing and Treatments Planned None identified. Treatment Goals Patient/Caregiver Goals Patient would like to be able to run without aggravating the knee and with no increase of symptoms. 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) Baseline Function- Recreation/Hobbies 3x/wk crossfit training 3-5 miles/ running per week Current Functional Impairments (Reported) Functional Limitations- ADL's Independent with difficulty in full squat activities Functional Limitations- Mobility/Gait Indep with no assistive device Functional Limitations- Work/School Indepedent Functional Limitations- Recreation/ Unable to run more than three Hobbies mile a week due increased in symptoms Difficulty in full squat crossfit activities PT-OP-C Subjective Start: 06/15/18 17:24 Freq: Status: Active Protocol: Document 07/27/18 07:39 EA (Rec: 07/27/18 08:13 EA [id number]) OP-PT Subjective Patient Comments Patient Comments Pt reports low back is quite sore today; states unable to do stretching and HEP due to busy sched. Patient Reported Progress Improving PT-OP-E Functional Tests Start: 06/15/18 17:24 Freq: Status: Active Protocol: Document 06/15/18 17:30 EA (Rec: 06/16/18 09:09 EA [id number]) Functional Tests Squat Test Score Single leg: Right able without difficulty. Left 30 degrees with difficulty PT-OP-F Manual Assessment Start: 06/15/18 17:24 Freq: Status: Active Protocol: Document 06/15/18 17:20 EA (Rec: 06/16/18 08:57 EA [id number]) Manual Assessments Soft Tissue Assessment Soft Tissue Mobility Assessment Tight left quads and slight both hamstrings tightness. Joint Mobility Assessment Joint Mobility Assessment Normal PT-OP-G Mobility & Gait Start: 06/15/18 17:24 Freq: Status: Active Protocol: Document 06/15/18 17:20 EA (Rec: 06/16/18 08:57 EA [id number]) Stair Climbing Evaluation Comments Stair Climbing Comments Slight antalgic with decreased stance phase to left PT-OP-J Posture/Palpation/Skin Start: 06/15/18 17:24 Freq: Status: Active Protocol: Document 06/15/18 17:20 EA (Rec: 06/16/18 08:57 EA [id number]) Posture Evaluation Comments Posture Comments Valgus to both knees with left is more than right Palpation Assessment Location One Palpation Location Left quads tightness, hip flexor, and ITB Palpation Findings Soft Tissue Tightness Tenderness Palpation Details Patellar crepitus, left. Grade 2/5 medial patellar ligament, lateral hamstring tendon insertion. PT-OP-K Range of Motion Start: 06/15/18 17:24 Freq: Status: Active Protocol: Document 06/15/18 17:20 EA (Rec: 06/16/18 08:57 EA [id number]) Knee Goniometric Range of Motion Knee Measured in Degrees Right Knee ROM WFL Yes Patient Position Supine Flexion Active (degrees) 145 Left Patient Position Supine Flexion Active (degrees) 112 Flexion Passive (degrees) 120 Extension Active (degrees) 0 Knee ROM Limitations Knee ROM Limitations Soft Tissue Tightness Pain PT-OP-L Special Tests Start: 06/15/18 17:24 Freq: Status: Active Protocol: Document 06/15/18 17:30 EA (Rec: 06/16/18 09:09 EA [id number]) Special Tests Knee Special Tests Anterior Draw Test Results negative Sharp's Compression Test Results positive Samia Test Test Results negative Hughston Pica Test Test Results negative Patellar Grind Test Test Results positive Korin's Test Test Results left positive Erwin Test Results both LE positive Martin's Sign Test Results Left knee positive PT-OP-M Strength Start: 06/15/18 17:24 Freq: Status: Active Protocol: Document 06/15/18 17:20 EA (Rec: 06/16/18 08:57 EA [id number]) Hip Strength Hip Manual Muscle Testing Right Reason Not Measured WFL Left Reason Not Measured WFL Knee Strength Knee Manual Muscle Testing Right Reason Not Measured WFL Left Flexion (S2) 4 Good Extension (L3) 4+ Good+ PT-OP-Q Treatments Start: 06/15/18 17:24 Freq: Status: Active Protocol: Document 07/27/18 07:39 EA (Rec: 07/27/18 08:13 EA [id number]) Cardio Equipment Bicycle (Upright) Duration (Minutes) 5 Resistance 5 Seat Position 2 Gym Equipment Cable Column (Body Solid) Leg Extension Details single leg: Left Resistance 20-45 lbs Reps/Time x 8-12 reps x 3 Shuttle Recovery Unilateral Squats Details pyometrics to left side Resistance 2-5cords Shuttle Recovery Platform Stable Reps/Time x 15 reps Bilateral Squats Resistance 6 cords Shuttle Recovery Platform Stable Reps/Time x 15 reps Therapeutic Exercises Prone Exercises 1 Prone Exercise Name quads stretch Side left Reps/Minutes x 30SH x 2 Standing Exercises 6 Standing Exercise Name single leg squat with slight hand support for balance Side bilateral Reps/Minutes x 10 reps x 2 sets 5 Standing Exercise Name 30 lbs cable single leg squat Reps/Minutes x 10 reps x 2 sets 4 Standing Exercise Name Half lunge quad stretch Comments 2pillows behind to sit with full stretch 3 Standing Exercise Name side step squat Side bilateral Resistance 10 lbs Reps/Minutes x 10 ft x 3 laps Comments w/ shoulder front raises 2 Standing Exercise Name FWD lunges Resistance 8# Reps/Minutes x 12 ft x 3 Comments Front raises 1 Standing Exercise Name Steady lunges Resistance 10# each hand Reps/Minutes x 8 reps x 2 sets Other Exercises 4 Other Exercise Name cord side to side hopped Resistance green cord Reps/Minutes x 30 secs 3 Other Exercise Name 12 sit to stand Equipment Used x 12 reps 2 Other Exercise Name single leg hopped alternate Reps/Minutes x 30 ft x3 laps 1 Other Exercise Name 6-12 left Eccentric Side left Comments 6-8 right foot lead descent with no HS with controlled pelvis PT-OP-R Modalities Start: 06/15/18 17:24 Freq: Status: Active Protocol: Document 07/27/18 08:13 EA (Rec: 07/27/18 08:13 EA [id number]) Hot Pack/Cold Pack Treatment Cold Pack Location left knee Patient Position Hooklying Treatment Duration (minutes) 15 Patient Tolerance Good PT-OP-T Assessment and Plan Start: 06/15/18 17:24 Freq: Status: Active Protocol: Document 07/27/18 07:39 EA (Rec: 07/27/18 08:13 EA [id number]) Physical Therapy Assessment Assessment Summary Assessment Tolerated treatment well. noted ROM is maintained to 125 deg flexion. Physical Therapy Plan Next Visit Focus/Plan Next Note Type Treatment Note Next Visit Plan Continue with current plan. progress as able. Plyometrics
--- NOTE | 2018-08-03 11:12 | PT.OTN ---
Current Diagnoses Pain in left knee (08/03/18) Physical Therapy Treatment Note PT-OP-A Visit Information Start: 06/15/18 17:24 Freq: Status: Active Protocol: Document 08/03/18 08:13 EA (Rec: 08/03/18 08:17 EA [id number]) Out-Patient Physical Therapy Visit Information Visit Information Visit Start Time 07:30 Visit Stop Time 08:20 Visit Number 12 PT-OP-B Current Condition Start: 06/15/18 17:24 Freq: Status: Active Protocol: Document 06/15/18 17:20 EA (Rec: 06/16/18 08:57 EA [id number]) Current Condition History of Current Condition Onset Date 3 years ago (Chronic) Current Complaints Left knee pain History of Current Condition Patient reports present left localized knee complaint has been chronic in the last three years with a history of ACL reconstruction surgery ( patellar tendon graft) 22 years ago. Patient denies any knee injury in the last 5 years. Pt states that she has been using ICE and knee brace in the last three years to managed the condition. She mentioned three marathon in the last ten years and pain is manageable, however, pain and swelling anytime she does running lessen her ability to progress more. States diagnostic imaging performed with arthritic condition of the knee. Prior Treatments and Tests Formal PT to left knee after surgery 22 years ago (last longer due to infection) Future Testing and Treatments Planned None identified. Treatment Goals Patient/Caregiver Goals Patient would like to be able to run without aggravating the knee and with no increase of symptoms. 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 Function- Recreation/Hobbies 3x/wk crossfit training 3-5 miles/ running per week Current Functional Impairments (Reported) Functional Limitations- ADL's Independent with difficulty in full squat activities Functional Limitations- Mobility/Gait Indep with no assistive device Functional Limitations- Work/School Indepedent Functional Limitations- Recreation/ Unable to run more than three Hobbies mile a week due increased in symptoms Difficulty in full squat crossfit activities PT-OP-C Subjective Start: 06/15/18 17:24 Freq: Status: Active Protocol: Document 08/03/18 08:13 EA (Rec: 08/03/18 08:17 EA [id number]) OP-PT Subjective Patient Comments Patient Comments Pt adniteed unable to stretch knee on recommended basis; state had run 2 days ago and no increased in symptoms noted . PT-OP-E Functional Tests Start: 06/15/18 17:24 Freq: Status: Active Protocol: Document 06/15/18 17:30 EA (Rec: 06/16/18 09:09 EA [id number]) Functional Tests Squat Test Score Single leg: Right able without difficulty. Left 30 degrees with difficulty PT-OP-F Manual Assessment Start: 06/15/18 17:24 Freq: Status: Active Protocol: Document 06/15/18 17:20 EA (Rec: 06/16/18 08:57 EA [id number]) Manual Assessments Soft Tissue Assessment Soft Tissue Mobility Assessment Tight left quads and slight both hamstrings tightness. Joint Mobility Assessment Joint Mobility Assessment Normal PT-OP-G Mobility & Gait Start: 06/15/18 17:24 Freq: Status: Active Protocol: Document 06/15/18 17:20 EA (Rec: 06/16/18 08:57 EA [id number]) Stair Climbing Evaluation Comments Stair Climbing Comments Slight antalgic with decreased stance phase to left PT-OP-J Posture/Palpation/Skin Start: 06/15/18 17:24 Freq: Status: Active Protocol: Document 06/15/18 17:20 EA (Rec: 06/16/18 08:57 EA [id number]) Posture Evaluation Comments Posture Comments Valgus to both knees with left is more than right Palpation Assessment Location One Palpation Location Left quads tightness, hip flexor, and ITB Palpation Findings Soft Tissue Tightness Tenderness Palpation Details Patellar crepitus, left. Grade 2/5 medial patellar ligament, lateral hamstring tendon insertion. PT-OP-K Range of Motion Start: 06/15/18 17:24 Freq: Status: Active Protocol: Document 06/15/18 17:20 EA (Rec: 06/16/18 08:57 EA [id number]) Knee Goniometric Range of Motion Knee Measured in Degrees Right Knee ROM WFL Yes Patient Position Supine Flexion Active (degrees) 145 Left Patient Position Supine Flexion Active (degrees) 112 Flexion Passive (degrees) 120 Extension Active (degrees) 0 Knee ROM Limitations Knee ROM Limitations Soft Tissue Tightness Pain PT-OP-L Special Tests Start: 06/15/18 17:24 Freq: Status: Active Protocol: Document 06/15/18 17:30 EA (Rec: 06/16/18 09:09 EA [id number]) Special Tests Knee Special Tests Anterior Draw Test Results negative Sharp's Compression Test Results positive Samia Test Test Results negative Hughston Pica Test Test Results negative Patellar Grind Test Test Results positive Korin's Test Test Results left positive Erwin Test Results both LE positive Martin's Sign Test Results Left knee positive PT-OP-M Strength Start: 06/15/18 17:24 Freq: Status: Active Protocol: Document 06/15/18 17:20 EA (Rec: 06/16/18 08:57 EA [id number]) Hip Strength Hip Manual Muscle Testing Right Reason Not Measured WFL Left Reason Not Measured WFL Knee Strength Knee Manual Muscle Testing Right Reason Not Measured WFL Left Flexion (S2) 4 Good Extension (L3) 4+ Good+ PT-OP-Q Treatments Start: 06/15/18 17:24 Freq: Status: Active Protocol: Document 08/03/18 08:13 EA (Rec: 08/03/18 08:17 EA [id number]) Gym Equipment Cable Column (Body Solid) Leg Extension Resistance 20-70 lbs Reps/Time x 8-12 reps x 3 Shuttle Recovery Unilateral Squats Details pyometrics to left side Resistance 2-5cords Shuttle Recovery Platform Stable Reps/Time x 15 reps Therapeutic Exercises Prone Exercises 1 Prone Exercise Name quads stretch Side left Reps/Minutes x 30SH x 2 Standing Exercises 6 Standing Exercise Name single leg squat with slight hand support for balance Side bilateral Reps/Minutes x 10 reps x 2 sets 5 Standing Exercise Name 30 lbs cable single leg squat Reps/Minutes x 10 reps x 2 sets 4 Standing Exercise Name Half lunge quad stretch Comments 2pillows behind to sit with full stretch 3 Standing Exercise Name side step squat Side bilateral Resistance 10 lbs Reps/Minutes x 10 ft x 3 laps Comments w/ shoulder front raises 2 Standing Exercise Name FWD lunges Resistance 8# Reps/Minutes x 12 ft x 3 Comments Front raises 1 Standing Exercise Name Steady lunges Resistance 10# each hand Reps/Minutes x 8 reps x 2 sets Other Exercises 4 Other Exercise Name cord side to side hopped Resistance green cord Reps/Minutes x 30 secs Comments with BUSO 3 Other Exercise Name 12 sit to stand Equipment Used x 12 reps 2 Other Exercise Name single leg hopped alternate Reps/Minutes x 30 ft x3 laps Comments longer stride PT-OP-R Modalities Start: 06/15/18 17:24 Freq: Status: Active Protocol: Document 08/03/18 08:13 EA (Rec: 08/03/18 08:17 EA [id number]) Hot Pack/Cold Pack Treatment Cold Pack Location left knee Patient Position Hooklying Treatment Duration (minutes) 15 Patient Tolerance Good PT-OP-T Assessment and Plan Start: 06/15/18 17:24 Freq: Status: Active Protocol: Document 08/03/18 08:13 EA (Rec: 08/03/18 08:17 EA [id number]) Physical Therapy Assessment Assessment Summary Assessment Improved quads strength noted at this time. Patient is progressing well and will cont . to benefit with skilled PT. Physical Therapy Plan Frequency and Duration Frequency of Treatment 2x/wk Duration of Treatment 6 wks Next Visit Focus/Plan Next Note Type Treatment Note Next Visit Plan Continue with current plan. progress as able. Plyometrics. Advance as tolerated.
--- NOTE | 2018-08-05 10:14 | PT.OTN ---
Current Diagnoses Pain in left knee (08/05/18) Physical Therapy Treatment Note PT-OP-A Visit Information Start: 06/15/18 17:24 Freq: Status: Active Protocol: Document 08/05/18 10:06 EA (Rec: 08/05/18 10:13 EA [id number]) Out-Patient Physical Therapy Visit Information Visit Information Visit Start Time 07:30 Visit Stop Time 08:20 Total Visit Minutes 48 Visit Number 13 PT-OP-B Current Condition Start: 06/15/18 17:24 Freq: Status: Active Protocol: Document 06/15/18 17:20 EA (Rec: 06/16/18 08:57 EA [id number]) Current Condition History of Current Condition Onset Date 3 years ago (Chronic) Current Complaints Left knee pain History of Current Condition Patient reports present left localized knee complaint has been chronic in the last three years with a history of ACL reconstruction surgery ( patellar tendon graft) 22 years ago. Patient denies any knee injury in the last 5 years. Pt states that she has been using ICE and knee brace in the last three years to managed the condition. She mentioned three marathon in the last ten years and pain is manageable, however, pain and swelling anytime she does running lessen her ability to progress more. States diagnostic imaging performed with arthritic condition of the knee. Prior Treatments and Tests Formal PT to left knee after surgery 22 years ago (last longer due to infection) Future Testing and Treatments Planned None identified. Treatment Goals Patient/Caregiver Goals Patient would like to be able to run without aggravating the knee and with no increase of symptoms. 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 Function- Recreation/Hobbies 3x/wk crossfit training 3-5 miles/ running per week Current Functional Impairments (Reported) Functional Limitations- ADL's Independent with difficulty in full squat activities Functional Limitations- Mobility/Gait Indep with no assistive device Functional Limitations- Work/School Indepedent Functional Limitations- Recreation/ Unable to run more than three Hobbies mile a week due increased in symptoms Difficulty in full squat crossfit activities PT-OP-C Subjective Start: 06/15/18 17:24 Freq: Status: Active Protocol: Document 08/05/18 10:06 EA (Rec: 08/05/18 10:13 EA [id number]) OP-PT Subjective Patient Comments Patient Comments Pt reports she has been compliant with HEP at this time; states no increased of symptoms in the past post exercises. Patient Reported Progress Improving PT-OP-E Functional Tests Start: 06/15/18 17:24 Freq: Status: Active Protocol: Document 06/15/18 17:30 EA (Rec: 06/16/18 09:09 EA [id number]) Functional Tests Squat Test Score Single leg: Right able without difficulty. Left 30 degrees with difficulty PT-OP-F Manual Assessment Start: 06/15/18 17:24 Freq: Status: Active Protocol: Document 06/15/18 17:20 EA (Rec: 06/16/18 08:57 EA [id number]) Manual Assessments Soft Tissue Assessment Soft Tissue Mobility Assessment Tight left quads and slight both hamstrings tightness. Joint Mobility Assessment Joint Mobility Assessment Normal PT-OP-G Mobility & Gait Start: 06/15/18 17:24 Freq: Status: Active Protocol: Document 06/15/18 17:20 EA (Rec: 06/16/18 08:57 EA [id number]) Stair Climbing Evaluation Comments Stair Climbing Comments Slight antalgic with decreased stance phase to left PT-OP-J Posture/Palpation/Skin Start: 06/15/18 17:24 Freq: Status: Active Protocol: Document 06/15/18 17:20 EA (Rec: 06/16/18 08:57 EA [id number]) Posture Evaluation Comments Posture Comments Valgus to both knees with left is more than right Palpation Assessment Location One Palpation Location Left quads tightness, hip flexor, and ITB Palpation Findings Soft Tissue Tightness Tenderness Palpation Details Patellar crepitus, left. Grade 2/5 medial patellar ligament, lateral hamstring tendon insertion. PT-OP-K Range of Motion Start: 06/15/18 17:24 Freq: Status: Active Protocol: Document 06/15/18 17:20 EA (Rec: 06/16/18 08:57 EA [id number]) Knee Goniometric Range of Motion Knee Measured in Degrees Right Knee ROM WFL Yes Patient Position Supine Flexion Active (degrees) 145 Left Patient Position Supine Flexion Active (degrees) 112 Flexion Passive (degrees) 120 Extension Active (degrees) 0 Knee ROM Limitations Knee ROM Limitations Soft Tissue Tightness Pain PT-OP-L Special Tests Start: 06/15/18 17:24 Freq: Status: Active Protocol: Document 06/15/18 17:30 EA (Rec: 06/16/18 09:09 EA [id number]) Special Tests Knee Special Tests Anterior Draw Test Results negative Sharp's Compression Test Results positive Samia Test Test Results negative Hughston Pica Test Test Results negative Patellar Grind Test Test Results positive Korin's Test Test Results left positive Erwin Test Results both LE positive Martin's Sign Test Results Left knee positive PT-OP-M Strength Start: 06/15/18 17:24 Freq: Status: Active Protocol: Document 06/15/18 17:20 EA (Rec: 06/16/18 08:57 EA [id number]) Hip Strength Hip Manual Muscle Testing Right Reason Not Measured WFL Left Reason Not Measured WFL Knee Strength Knee Manual Muscle Testing Right Reason Not Measured WFL Left Flexion (S2) 4 Good Extension (L3) 4+ Good+ PT-OP-Q Treatments Start: 06/15/18 17:24 Freq: Status: Active Protocol: Document 08/05/18 10:06 EA (Rec: 08/05/18 10:13 EA [id number]) Cardio Equipment Treadmill Duration (Minutes) 8 Speed 3-8 Other interval 30: 60 seconds Gym Equipment Cable Column (Body Solid) Leg Extension Resistance 20-70 lbs Reps/Time x 8-12 reps x 3 Therapeutic Exercises Supine Exercises 1 Supine Exercise Name Quads stretch: heel slide Side left Reps/Minutes x 30SH x 2 Comments foot on table surface Standing Exercises 6 Standing Exercise Name single leg squat with slight hand support for balance Side bilateral Reps/Minutes x 10 reps x 2 sets 5 Standing Exercise Name 30 lbs cable single leg squat Reps/Minutes x 10 reps x 2 sets 4 Standing Exercise Name Half lunge quad stretch Comments 2pillows behind to sit with full stretch 3 Standing Exercise Name side step squat Side bilateral Resistance 10 lbs Reps/Minutes x 10 ft x 3 laps Comments w/ shoulder front raises 2 Standing Exercise Name FWD lunges Resistance 8# Reps/Minutes x 12 ft x 3 Comments Front raises 1 Standing Exercise Name Steady lunges Resistance 10# each hand Reps/Minutes x 8 reps x 2 sets Other Exercises 5 Other Exercise Name Leg long hopped Side left Reps/Minutes x 5 x 3 sets Comments 3ft 4 Other Exercise Name cord side to side hopped Resistance green cord Reps/Minutes x 30 secs Comments with BUSO 3 Other Exercise Name 12 sit to stand Equipment Used x 12 reps 2 Other Exercise Name single leg hopped alternate Reps/Minutes x 30 ft x3 laps Comments longer stride 1 Other Exercise Name 6-12 left Eccentric Side left Resistance Red cord Comments 6-8 right foot lead descent with no HS with controlled pelvis PT-OP-R Modalities Start: 06/15/18 17:24 Freq: Status: Active Protocol: Document 08/05/18 10:06 EA (Rec: 08/05/18 10:13 EA [id number]) Hot Pack/Cold Pack Treatment Cold Pack Location left knee Patient Position Hooklying Treatment Duration (minutes) 15 Patient Tolerance Good PT-OP-T Assessment and Plan Start: 06/15/18 17:24 Freq: Status: Active Protocol: Document 08/05/18 10:06 EA (Rec: 08/05/18 10:13 EA [id number]) Physical Therapy Assessment Assessment Summary Assessment Noted improved stability and power with single leg hopped with no symptoms provocation. Patient will continue to progress with advance therex. Physical Therapy Plan Next Visit Focus/Plan Next Note Type Treatment Note Next Visit Plan Advance single leg hopping. A/ P and lateral
--- NOTE | 2018-08-09 14:08 | PT.OTN ---
Current Diagnoses Pain in left knee (08/09/18) Physical Therapy Treatment Note PT-OP-A Visit Information Start: 06/15/18 17:24 Freq: Status: Active Protocol: Document 08/09/18 08:16 EA (Rec: 08/09/18 08:59 EA [id number]) Out-Patient Physical Therapy Visit Information Visit Information Visit Start Time 07:30 Visit Stop Time 08:20 Total Visit Minutes 53 Visit Number 14 PT-OP-B Current Condition Start: 06/15/18 17:24 Freq: Status: Active Protocol: Document 06/15/18 17:20 EA (Rec: 06/16/18 08:57 EA [id number]) Current Condition History of Current Condition Onset Date 3 years ago (Chronic) Current Complaints Left knee pain History of Current Condition Patient reports present left localized knee complaint has been chronic in the last three years with a history of ACL reconstruction surgery ( patellar tendon graft) 22 years ago. Patient denies any knee injury in the last 5 years. Pt states that she has been using ICE and knee brace in the last three years to managed the condition. She mentioned three marathon in the last ten years and pain is manageable, however, pain and swelling anytime she does running lessen her ability to progress more. States diagnostic imaging performed with arthritic condition of the knee. Prior Treatments and Tests Formal PT to left knee after surgery 22 years ago (last longer due to infection) Future Testing and Treatments Planned None identified. Treatment Goals Patient/Caregiver Goals Patient would like to be able to run without aggravating the knee and with no increase of symptoms. 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) Baseline Function- Recreation/Hobbies 3x/wk crossfit training 3-5 miles/ running per week Current Functional Impairments (Reported) Functional Limitations- ADL's Independent with difficulty in full squat activities Functional Limitations- Mobility/Gait Indep with no assistive device Functional Limitations- Work/School Indepedent Functional Limitations- Recreation/ Unable to run more than three Hobbies mile a week due increased in symptoms Difficulty in full squat crossfit activities PT-OP-C Subjective Start: 06/15/18 17:24 Freq: Status: Active Protocol: Document 08/09/18 08:16 EA (Rec: 08/09/18 08:59 EA [id number]) OP-PT Subjective Patient Comments Patient Comments Pt reports feels hitting the wall when stretching; states strength though is getting better. PT-OP-E Functional Tests Start: 06/15/18 17:24 Freq: Status: Active Protocol: Document 06/15/18 17:30 EA (Rec: 06/16/18 09:09 EA [id number]) Functional Tests Squat Test Score Single leg: Right able without difficulty. Left 30 degrees with difficulty PT-OP-F Manual Assessment Start: 06/15/18 17:24 Freq: Status: Active Protocol: Document 06/15/18 17:20 EA (Rec: 06/16/18 08:57 EA [id number]) Manual Assessments Soft Tissue Assessment Soft Tissue Mobility Assessment Tight left quads and slight both hamstrings tightness. Joint Mobility Assessment Joint Mobility Assessment Normal PT-OP-G Mobility & Gait Start: 06/15/18 17:24 Freq: Status: Active Protocol: Document 06/15/18 17:20 EA (Rec: 06/16/18 08:57 EA [id number]) Stair Climbing Evaluation Comments Stair Climbing Comments Slight antalgic with decreased stance phase to left PT-OP-J Posture/Palpation/Skin Start: 06/15/18 17:24 Freq: Status: Active Protocol: Document 06/15/18 17:20 EA (Rec: 06/16/18 08:57 EA [id number]) Posture Evaluation Comments Posture Comments Valgus to both knees with left is more than right Palpation Assessment Location One Palpation Location Left quads tightness, hip flexor, and ITB Palpation Findings Soft Tissue Tightness Tenderness Palpation Details Patellar crepitus, left. Grade 2/5 medial patellar ligament, lateral hamstring tendon insertion. PT-OP-K Range of Motion Start: 06/15/18 17:24 Freq: Status: Active Protocol: Document 06/15/18 17:20 EA (Rec: 06/16/18 08:57 EA [id number]) Knee Goniometric Range of Motion Knee Measured in Degrees Right Knee ROM WFL Yes Patient Position Supine Flexion Active (degrees) 145 Left Patient Position Supine Flexion Active (degrees) 112 Flexion Passive (degrees) 120 Extension Active (degrees) 0 Knee ROM Limitations Knee ROM Limitations Soft Tissue Tightness Pain PT-OP-L Special Tests Start: 06/15/18 17:24 Freq: Status: Active Protocol: Document 06/15/18 17:30 EA (Rec: 06/16/18 09:09 EA [id number]) Special Tests Knee Special Tests Anterior Draw Test Results negative Sharp's Compression Test Results positive Samia Test Test Results negative Hughston Pica Test Test Results negative Patellar Grind Test Test Results positive Korin's Test Test Results left positive Erwin Test Results both LE positive Martin's Sign Test Results Left knee positive PT-OP-M Strength Start: 06/15/18 17:24 Freq: Status: Active Protocol: Document 06/15/18 17:20 EA (Rec: 06/16/18 08:57 EA [id number]) Hip Strength Hip Manual Muscle Testing Right Reason Not Measured WFL Left Reason Not Measured WFL Knee Strength Knee Manual Muscle Testing Right Reason Not Measured WFL Left Flexion (S2) 4 Good Extension (L3) 4+ Good+ PT-OP-Q Treatments Start: 06/15/18 17:24 Freq: Status: Active Protocol: Document 08/09/18 08:16 EA (Rec: 08/09/18 08:59 EA [id number]) Cardio Equipment Bicycle (Upright) Duration (Minutes) 5 Resistance 5 Seat Position 2 Gym Equipment Cable Column (Body Solid) Leg Extension Resistance 20-70 lbs Reps/Time x 8-12 reps x 3 Therapeutic Exercises Supine Exercises 1 Supine Exercise Name Quads stretch: heel slide Side left Reps/Minutes x 30SH x 2 Comments foot on table surface Prone Exercises 1 Prone Exercise Name quads stretch Side left Reps/Minutes x 30SH x 2 Standing Exercises 6 Standing Exercise Name single leg squat with slight hand support for balance Side bilateral Reps/Minutes x 10 reps x 2 sets 5 Standing Exercise Name 30 lbs cable single leg squat Reps/Minutes x 10 reps x 2 sets 4 Standing Exercise Name Half lunge quad stretch Comments 2pillows behind to sit with full stretch 3 Standing Exercise Name side step squat Side bilateral Resistance 10 lbs Reps/Minutes x 10 ft x 3 laps Comments w/ shoulder front raises 2 Standing Exercise Name FWD lunges Resistance 10# Reps/Minutes x 12 ft x 3 Comments Front raises Other Exercises 6 Other Exercise Name 4 hop in/out lat direction Resistance red cord Reps/Minutes x 8 reps x 2 sets 5 Other Exercise Name Leg long hopped Side left Reps/Minutes x 5 x 3 sets Comments 3ft 4 Other Exercise Name cord side to side hopped Resistance red cord Reps/Minutes x 30 secs Comments with BUSO 3 Other Exercise Name 12 sit to stand Equipment Used x 12 reps 2 Other Exercise Name single leg hopped alternate Reps/Minutes x 30 ft x3 laps Comments longer stride 1 Other Exercise Name 6-12 left Eccentric Side left Resistance Red cord Comments 6-8 right foot lead descent with no HS with controlled pelvis Manual Therapy Treatment Joint Mobilizations 1 Joint TF joint Grade III Body Position Supine Reps/Duration x 5 min PT-OP-R Modalities Start: 06/15/18 17:24 Freq: Status: Active Protocol: Document 08/09/18 08:16 EA (Rec: 08/09/18 08:59 EA [id number]) Hot Pack/Cold Pack Treatment Cold Pack Location left knee Patient Position Hooklying Treatment Duration (minutes) 15 Patient Tolerance Good PT-OP-T Assessment and Plan Start: 06/15/18 17:24 Freq: Status: Active Protocol: Document 08/09/18 08:16 EA (Rec: 08/09/18 08:59 EA [id number]) Physical Therapy Assessment Assessment Summary Assessment Noted 127 knee flexion supine after joint mob; overall patient tolerated exercises with improved stability during single leg hopped. Physical Therapy Plan Next Visit Focus/Plan Next Note Type Treatment Note Next Visit Plan Advance single leg hopping. A/ P and lateral re-eval next visit
--- NOTE | 2018-08-12 11:03 | PT.OTRE ---
Current Diagnoses Pain in left knee (08/12/18) Past Medical History (Last Updated 11/23/17 @ 22:59 by Shannon Hutchinson) ADHD (Chronic) Acne (Chronic ~1987) Ankle pain (Chronic ~1991) Fractures (Chronic ~1985) Irregular menstrual cycle (Chronic ~2011) Ovarian cyst (Chronic ~2011) Rosacea (Chronic ~2007) Tinnitus (Chronic ~2012) Chicken pox (Resolved ~1979) Kidney stones (Resolved ~1997) Staph infection (Resolved ~1997) Surgical History (Last Updated 11/23/17 @ 22:59 by Shannon Hutchinson) Anesthesia (Resolved) Surgical procedure planned (Resolved ~2002) Surgical procedure planned (Resolved ~2009) History of breast augmentation (~2010) History of lithotripsy Status post knee surgery (~1988) Provider Visit Care Team Role Provider Type Fer Cole MD Attending Provider Physician Primary Care Provider Specialty: Family Practice Address: [address] [place] [address] Email: [email or web address] Physical Therapy Re-Evaluation PT-OP-A Visit Information Start: 06/15/18 17:24 Freq: Status: Active Protocol: Document 08/12/18 09:00 EA (Rec: 08/12/18 09:47 EA [id number]) Out-Patient Physical Therapy Visit Information Visit Information Visit Type Treatment Note Visit Note Re-eval performed to this visit. Visit Start Time 08:15 Visit Stop Time 09:20 Total Visit Minutes 55 Visit Number 15 PT-OP-B Current Condition Start: 06/15/18 17:24 Freq: Status: Active Protocol: Document 06/15/18 17:20 EA (Rec: 06/16/18 08:57 EA [id number]) Current Condition History of Current Condition Onset Date 3 years ago (Chronic) Current Complaints Left knee pain History of Current Condition Patient reports present left localized knee complaint has been chronic in the last three years with a history of ACL reconstruction surgery ( patellar tendon graft) 22 years ago. Patient denies any knee injury in the last 5 years. Pt states that she has been using ICE and knee brace in the last three years to managed the condition. She mentioned three marathon in the last ten years and pain is manageable, however, pain and swelling anytime she does running lessen her ability to progress more. States diagnostic imaging performed with arthritic condition of the knee. Prior Treatments and Tests Formal PT to left knee after surgery 22 years ago (last longer due to infection) Future Testing and Treatments Planned None identified. Treatment Goals Patient/Caregiver Goals Patient would like to be able to run without aggravating the knee and with no increase of symptoms. 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) Baseline Function- Recreation/Hobbies 3x/wk crossfit training 3-5 miles/ running per week Current Functional Impairments (Reported) Functional Limitations- ADL's Independent with difficulty in full squat activities Functional Limitations- Mobility/Gait Indep with no assistive device Functional Limitations- Work/School Indepedent Functional Limitations- Recreation/ Unable to run more than three Hobbies mile a week due increased in symptoms Difficulty in full squat crossfit activities PT-OP-C Subjective Start: 06/15/18 17:24 Freq: Status: Active Protocol: Document 08/12/18 09:00 EA (Rec: 08/12/18 09:47 EA [id number]) OP-PT Subjective Patient Comments Patient Comments Pt reports that she much great ; states less frequent symptoms with increasing activity. Patient Reported Progress Improving Patient Questionnaires Lower Extremity Functional Scale LEFS Score 75 LEFS Impairment 1 to 19% Impaired (Score 63-79 ) PT-OP-E Functional Tests Start: 06/15/18 17:24 Freq: Status: Active Protocol: Document 08/12/18 11:00 EA (Rec: 08/12/18 11:01 EA [id number]) Functional Tests Squat Test Score Single leg: Right able without difficulty. Left 80 deg w/ slight difficulty PT-OP-F Manual Assessment Start: 06/15/18 17:24 Freq: Status: Active Protocol: Document 06/15/18 17:20 EA (Rec: 06/16/18 08:57 EA [id number]) Manual Assessments Soft Tissue Assessment Soft Tissue Mobility Assessment Tight left quads and slight both hamstrings tightness. Joint Mobility Assessment Joint Mobility Assessment Normal PT-OP-G Mobility & Gait Start: 06/15/18 17:24 Freq: Status: Active Protocol: Document 06/15/18 17:20 EA (Rec: 06/16/18 08:57 EA [id number]) Stair Climbing Evaluation Comments Stair Climbing Comments Slight antalgic with decreased stance phase to left PT-OP-J Posture/Palpation/Skin Start: 06/15/18 17:24 Freq: Status: Active Protocol: Document 06/15/18 17:20 EA (Rec: 06/16/18 08:57 EA [id number]) Posture Evaluation Comments Posture Comments Valgus to both knees with left is more than right Palpation Assessment Location One Palpation Location Left quads tightness, hip flexor, and ITB Palpation Findings Soft Tissue Tightness Tenderness Palpation Details Patellar crepitus, left. Grade 2/5 medial patellar ligament, lateral hamstring tendon insertion. PT-OP-K Range of Motion Start: 06/15/18 17:24 Freq: Status: Active Protocol: Document 08/12/18 09:00 EA (Rec: 08/12/18 09:47 EA [id number]) Knee Goniometric Range of Motion Knee Measured in Degrees Right Knee ROM WFL Yes Patient Position Supine Flexion Active (degrees) 145 Left Patient Position Supine Flexion Active (degrees) 125 Flexion Passive (degrees) 127 Extension Active (degrees) 0 PT-OP-L Special Tests Start: 06/15/18 17:24 Freq: Status: Active Protocol: Document 06/15/18 17:30 EA (Rec: 06/16/18 09:09 EA [id number]) Special Tests Knee Special Tests Anterior Draw Test Results negative Sharp's Compression Test Results positive Samia Test Test Results negative Hughston Pica Test Test Results negative Patellar Grind Test Test Results positive Korin's Test Test Results left positive Erwin Test Results both LE positive Martin's Sign Test Results Left knee positive PT-OP-M Strength Start: 06/15/18 17:24 Freq: Status: Active Protocol: Document 08/12/18 09:00 EA (Rec: 08/12/18 09:47 EA [id number]) Knee Strength Knee Manual Muscle Testing Right Reason Not Measured WFL Left Flexion (S2) 4+ Good+ Extension (L3) 4+ Good+ PT-OP-Q Treatments Start: 06/15/18 17:24 Freq: Status: Active Protocol: Document 08/12/18 09:00 EA (Rec: 08/12/18 09:47 EA [id number]) Cardio Equipment Bicycle (Upright) Duration (Minutes) 5 Resistance 5 Seat Position 2 Gym Equipment Cable Column (Body Solid) Leg Extension Resistance 20-70 lbs Reps/Time x 8-12 reps x 3 Therapeutic Exercises Supine Exercises 1 Supine Exercise Name Quads stretch: heel slide Side left Reps/Minutes x 30SH x 2 Comments foot on table surface Prone Exercises 1 Prone Exercise Name quads stretch Side left Reps/Minutes x 30SH x 2 Standing Exercises 6 Standing Exercise Name single leg squat Side bilateral Reps/Minutes x 10 reps x 2 sets 4 Standing Exercise Name Half lunge quad stretch Comments 2pillows behind to sit with full stretch 3 Standing Exercise Name side step squat Side bilateral Resistance 10 lbs Reps/Minutes x 10 ft x 3 laps Comments w/ shoulder front raises 2 Standing Exercise Name FWD lunges Resistance 10# Reps/Minutes x 12 ft x 3 Comments Front raises 1 Standing Exercise Name Steady lunges Resistance 5lbs# each hand Reps/Minutes x 8 reps x 2 sets Comments shoulder press on way up Other Exercises 6 Other Exercise Name 4 hop in/out lat direction Resistance red cord Reps/Minutes x 8 reps x 2 sets 5 Other Exercise Name Leg long hopped Side left Reps/Minutes x 5 x 3 sets Comments 3ft 4 Other Exercise Name cord side to side hopped Resistance red cord Reps/Minutes x 30 secs Comments with BUSO 3 Other Exercise Name 12 sit to stand Equipment Used x 12 reps 2 Other Exercise Name single leg hopped alternate Reps/Minutes x 30 ft x3 laps Comments longer stride 1 Other Exercise Name 6-12 left Eccentric Side left Resistance Red cord Comments 6-8 right foot lead descent with no HS with controlled pelvis PT-OP-R Modalities Start: 06/15/18 17:24 Freq: Status: Active Protocol: Document 08/12/18 10:59 EA (Rec: 08/12/18 11:00 EA [id number]) Hot Pack/Cold Pack Treatment Cold Pack Location left knee Patient Position Hooklying Treatment Duration (minutes) 15 Patient Tolerance Good PT-OP-T Assessment and Plan Start: 06/15/18 17:24 Freq: Status: Active Protocol: Document 08/12/18 10:53 EA (Rec: 08/12/18 10:59 EA [id number]) Physical Therapy Assessment Impairments Impairments Activity Tolerance Posture ROM Strength Goals Four Impairment No HEP in place Correction Goal (LTG) Patient will comply and perform home exercises safe and independent LTG Duration 3 wks Execellent progress Three Impairment Impaired left quads functional strength Correction Goal (LTG) Patient will perform single leg squat without difficulty for functional running LTG Duration 4 wks Excellent progress ( currently 10 SLS with slight difficulty) Two Impairment Impaired left knee ROM Welding Inspector Goal (LTG) Patient will have left knee full ROM to enable patient perform crossfit activities without limitation LTG Duration 4 wks (stedy slow progress) 0- 125 deg knee flexion currently One Impairment LEFS score of 62/80 Welding Inspector Goal (LTG) Will have LEFS score of 75/80 LTG Duration 4 wks (excellent progress) Assessment Summary Assessment PT has improved functional running with increased of symptoms in the past 2 weeks. Patient will continue to improve and will reach highest functional ability. Pt will consider to advance program at this time. Physical Therapy Plan Frequency and Duration Frequency of Treatment 2x/Week Duration of Treatment 6 wks Plan of Care Start Date 08/12/18 Plan of Care End Date 09/23/18 Therapeutic Interventions Therapeutic Interventions Gait Training Home Exercise Program Joint Mobilizations Manual Therapy Patient/Caregiver Education Self-Care/Home Management Soft Tissue Mobilization Taping Therapeutic Exercises Modalities Cold Pack/Ice Massage Electric Stimulation Hot Packs Ultrasound Next Visit Focus/Plan Next Note Type Treatment Note Next Visit Plan Advance as tolerated
--- NOTE | 2018-08-12 11:03 | PT.OPPOC ---
Current Diagnoses Pain in left knee (08/12/18) Provider Visit Care Team Role Provider Type Fer Cole MD Attending Provider Physician Primary Care Provider Specialty: Family Practice Address: [address] [place] [address], [id number] Email: [email or web address] Plan Of Care PT-OP-T Assessment and Plan Start: 06/15/18 17:24 Freq: Status: Active Protocol: Document 08/12/18 10:53 EA (Rec: 08/12/18 10:59 EA [id number]) Physical Therapy Assessment Impairments Impairments Activity Tolerance Posture ROM Strength Goals Four Impairment No HEP in place Penitentiary Goal (LTG) Patient will comply and perform home exercises safe and independent LTG Duration 3 wks Execellent progress Three Impairment Impaired left quads functional strength Nurse Advisor Goal (LTG) Patient will perform single leg squat without difficulty for functional running LTG Duration 4 wks Excellent progress ( currently 10 SLS with slight difficulty) Two Impairment Impaired left knee ROM Penitentiary Goal (LTG) Patient will have left knee full ROM to enable patient perform crossfit activities without limitation LTG Duration 4 wks (stedy slow progress) 0- 125 deg knee flexion currently One Impairment LEFS score of 62/80 Nurse Advisor Goal (LTG) Will have LEFS score of 75/80 LTG Duration 4 wks (excellent progress) Assessment Summary Assessment PT has improved functional running with increased of symptoms in the past 2 weeks. Patient will continue to improve and will reach highest functional ability. Pt will consider to advance program at this time. Physical Therapy Plan Frequency and Duration Frequency of Treatment 2x/Week Duration of Treatment 6 wks Plan of Care Start Date 08/12/18 Plan of Care End Date 09/23/18 Therapeutic Interventions Therapeutic Interventions Gait Training Home Exercise Program Joint Mobilizations Manual Therapy Patient/Caregiver Education Self-Care/Home Management Soft Tissue Mobilization Taping Therapeutic Exercises Modalities Cold Pack/Ice Massage Electric Stimulation Hot Packs Ultrasound Next Visit Focus/Plan Next Note Type Treatment Note Next Visit Plan Advance as tolerated Plan of Care Dates Plan of Care Start Date 08/12/18 Plan of Care End Date 09/23/18 Please Sign and Return: I have reviewed this Plan of Care and certify that the skilled therapy services above are required to meet the patient?s needs. Physician Signature Date Printed Name and Credentials Clinical Instructor Signature Printed Name and Credentials
--- NOTE | 2018-08-16 10:09 | PT.OTN ---
Current Diagnoses Pain in left knee (08/16/18) Physical Therapy Treatment Note PT-OP-A Visit Information Start: 06/15/18 17:24 Freq: Status: Active Protocol: Document 08/16/18 09:07 LRN (Rec: 08/16/18 09:50 LRN [id number]) Out-Patient Physical Therapy Visit Information Visit Information Visit Type Treatment Note Visit Note Re-eval performed to this visit. Visit Start Time 09:07 Visit Stop Time 09:52 Total Visit Minutes 45 Visit Number 16 Evaluation Information Evaluation Date 06/16/18 PT-OP-B Current Condition Start: 06/15/18 17:24 Freq: Status: Active Protocol: Document 06/15/18 17:20 EA (Rec: 06/16/18 08:57 EA [id number]) Current Condition History of Current Condition Onset Date 3 years ago (Chronic) Current Complaints Left knee pain History of Current Condition Patient reports present left localized knee complaint has been chronic in the last three years with a history of ACL reconstruction surgery ( patellar tendon graft) 22 years ago. Patient denies any knee injury in the last 5 years. Pt states that she has been using ICE and knee brace in the last three years to managed the condition. She mentioned three marathon in the last ten years and pain is manageable, however, pain and swelling anytime she does running lessen her ability to progress more. States diagnostic imaging performed with arthritic condition of the knee. Prior Treatments and Tests Formal PT to left knee after surgery 22 years ago (last longer due to infection) Future Testing and Treatments Planned None identified. Treatment Goals Patient/Caregiver Goals Patient would like to be able to run without aggravating the knee and with no increase of symptoms. 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) Baseline Function- Recreation/Hobbies 3x/wk crossfit training 3-5 miles/ running per week Current Functional Impairments (Reported) Functional Limitations- ADL's Independent with difficulty in full squat activities Functional Limitations- Mobility/Gait Indep with no assistive device Functional Limitations- Work/School Indepedent Functional Limitations- Recreation/ Unable to run more than three Hobbies mile a week due increased in symptoms Difficulty in full squat crossfit activities PT-OP-C Subjective Start: 06/15/18 17:24 Freq: Status: Active Protocol: Document 08/16/18 09:07 LRN (Rec: 08/16/18 09:54 LRN [id number]) OP-PT Subjective Patient Comments Patient Comments States her knee is feeling better overall. Wants to be able to run without pain. PT-OP-E Functional Tests Start: 06/15/18 17:24 Freq: Status: Active Protocol: Document 08/12/18 11:00 EA (Rec: 08/12/18 11:01 EA [id number]) Functional Tests Squat Test Score Single leg: Right able without difficulty. Left 80 deg w/ slight difficulty PT-OP-F Manual Assessment Start: 06/15/18 17:24 Freq: Status: Active Protocol: Document 06/15/18 17:20 EA (Rec: 06/16/18 08:57 EA [id number]) Manual Assessments Soft Tissue Assessment Soft Tissue Mobility Assessment Tight left quads and slight both hamstrings tightness. Joint Mobility Assessment Joint Mobility Assessment Normal PT-OP-G Mobility & Gait Start: 06/15/18 17:24 Freq: Status: Active Protocol: Document 06/15/18 17:20 EA (Rec: 06/16/18 08:57 EA [id number]) Stair Climbing Evaluation Comments Stair Climbing Comments Slight antalgic with decreased stance phase to left PT-OP-J Posture/Palpation/Skin Start: 06/15/18 17:24 Freq: Status: Active Protocol: Document 06/15/18 17:20 EA (Rec: 06/16/18 08:57 EA [id number]) Posture Evaluation Comments Posture Comments Valgus to both knees with left is more than right Palpation Assessment Location One Palpation Location Left quads tightness, hip flexor, and ITB Palpation Findings Soft Tissue Tightness Tenderness Palpation Details Patellar crepitus, left. Grade 2/5 medial patellar ligament, lateral hamstring tendon insertion. PT-OP-K Range of Motion Start: 06/15/18 17:24 Freq: Status: Active Protocol: Document 08/16/18 09:07 LRN (Rec: 08/16/18 09:54 LRN [id number]) Knee Goniometric Range of Motion Knee Measured in Degrees Left Knee ROM WFL No Patient Position Supine Flexion Active (degrees) 127 Flexion Passive (degrees) 132 Extension Active (degrees) 0 Knee ROM Limitations Comments Passive knee flex measured in standing. Active knee ext was taken after stretching. PT-OP-L Special Tests Start: 06/15/18 17:24 Freq: Status: Active Protocol: Document 06/15/18 17:30 EA (Rec: 06/16/18 09:09 EA [id number]) Special Tests Knee Special Tests Anterior Draw Test Results negative Sharp's Compression Test Results positive Samia Test Test Results negative Hughston Pica Test Test Results negative Patellar Grind Test Test Results positive Korin's Test Test Results left positive Erwin Test Results both LE positive Martin's Sign Test Results Left knee positive PT-OP-M Strength Start: 06/15/18 17:24 Freq: Status: Active Protocol: Document 08/12/18 09:00 EA (Rec: 08/12/18 09:47 EA [id number]) Knee Strength Knee Manual Muscle Testing Right Reason Not Measured WFL Left Flexion (S2) 4+ Good+ Extension (L3) 4+ Good+ PT-OP-Q Treatments Start: 06/15/18 17:24 Freq: Status: Active Protocol: Document 08/16/18 09:07 LRN (Rec: 08/16/18 09:50 LRN [id number]) Cardio Equipment Bicycle (Upright) Duration (Minutes) 10 Resistance 8 Seat Position 8 Therapeutic Exercises Supine Exercises SLR Supine Exercise Name SLR Side left Reps/Minutes 10 x 1 each Comments LE with foot at 12 & 10 O' Clock position Knee ext Supine Exercise Name Stretch followed by active juan quad set Reps/Minutes 5' 1 Supine Exercise Name Quads stretch: heel slide Side left Reps/Minutes 10x Comments Assisted heel slide Prone Exercises 1 Prone Exercise Name quads stretch Side left Reps/Minutes x 30SH x 2 Standing Exercises Pt asstd knee flex stretch on step Standing Exercise Name Active assistted knee flexion with self MWM Side left Equipment Used Step Reps/Minutes 8 Manual Therapy Treatment Joint Mobilizations 1 Joint TF joint Grade III Body Position Supine Reps/Duration x 5 min Manual Techniques MWM R knee Type Minimal PA glide w/ER of Tibia on Femur: Supine & stand during knee flexion Body Location R knee Body Position Supine Self-Care/Home Management Treatment Education Patient Education Home Exercise Program Activities Self-Care/Home Management Activities I/S pt in HEP: SLR @ 10 and 12 O'Clock foot positioning, and R knee flex stretch on stair with PA/ER glide for pain relief. PT-OP-R Modalities Start: 06/15/18 17:24 Freq: Status: Active Protocol: Document 08/12/18 10:59 EA (Rec: 08/12/18 11:00 EA [id number]) Hot Pack/Cold Pack Treatment Cold Pack Location left knee Patient Position Hooklying Treatment Duration (minutes) 15 Patient Tolerance Good PT-OP-T Assessment and Plan Start: 06/15/18 17:24 Freq: Status: Active Protocol: Document 08/16/18 09:07 LRN (Rec: 08/16/18 09:50 LRN [id number]) Physical Therapy Assessment Assessment Summary Assessment Pt has mild L knee ROM with pt noting pain with longer stride running and inability to fully squat. Focus today on addition of home ex's; therefore did not advance therapy program today. Next visit will try advancing program for medial quad strengthening with eccentric and ballistic strengthening. Physical Therapy Plan Frequency and Duration Frequency of Treatment 2x/Week Duration of Treatment 6 wks Plan of Care Start Date 08/12/18 Plan of Care End Date 09/23/18 Next Visit Focus/Plan Next Note Type Treatment Note Next Visit Plan Issue HEP of SLR, and prone knee flex stretch/ strengthening. Advance strengthening as tolerated. Start hopping for medial quad strengthening.
--- NOTE | 2018-08-19 15:48 | PT.OTN ---
Current Diagnoses Pain in left knee (08/19/18) Physical Therapy Treatment Note PT-OP-A Visit Information Start: 06/15/18 17:24 Freq: Status: Active Protocol: Document 08/19/18 10:31 LRN (Rec: 08/19/18 11:17 LRN [id number]) Out-Patient Physical Therapy Visit Information Visit Information Visit Type Treatment Note Visit Start Time 10:31 Visit Stop Time 11:25 Total Visit Minutes 54 Visit Number 17 Evaluation Information Evaluation Date 06/16/18 PT-OP-B Current Condition Start: 06/15/18 17:24 Freq: Status: Active Protocol: Document 06/15/18 17:20 EA (Rec: 06/16/18 08:57 EA [id number]) Current Condition History of Current Condition Onset Date 3 years ago (Chronic) Current Complaints Left knee pain History of Current Condition Patient reports present left localized knee complaint has been chronic in the last three years with a history of ACL reconstruction surgery ( patellar tendon graft) 22 years ago. Patient denies any knee injury in the last 5 years. Pt states that she has been using ICE and knee brace in the last three years to managed the condition. She mentioned three marathon in the last ten years and pain is manageable, however, pain and swelling anytime she does running lessen her ability to progress more. States diagnostic imaging performed with arthritic condition of the knee. Prior Treatments and Tests Formal PT to left knee after surgery 22 years ago (last longer due to infection) Future Testing and Treatments Planned None identified. Treatment Goals Patient/Caregiver Goals Patient would like to be able to run without aggravating the knee and with no increase of symptoms. 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 Function- Recreation/Hobbies 3x/wk crossfit training 3-5 miles/ running per week Current Functional Impairments (Reported) Functional Limitations- ADL's Independent with difficulty in full squat activities Functional Limitations- Mobility/Gait Indep with no assistive device Functional Limitations- Work/School Indepedent Functional Limitations- Recreation/ Unable to run more than three Hobbies mile a week due increased in symptoms Difficulty in full squat crossfit activities PT-OP-C Subjective Start: 06/15/18 17:24 Freq: Status: Active Protocol: Document 08/19/18 10:31 LRN (Rec: 08/19/18 11:17 LRN [id number]) OP-PT Subjective Patient Comments Patient Comments States same. Did ex bike just before start of therapy. PT-OP-E Functional Tests Start: 06/15/18 17:24 Freq: Status: Active Protocol: Document 08/12/18 11:00 EA (Rec: 08/12/18 11:01 EA [id number]) Functional Tests Squat Test Score Single leg: Right able without difficulty. Left 80 deg w/ slight difficulty PT-OP-F Manual Assessment Start: 06/15/18 17:24 Freq: Status: Active Protocol: Document 06/15/18 17:20 EA (Rec: 06/16/18 08:57 EA [id number]) Manual Assessments Soft Tissue Assessment Soft Tissue Mobility Assessment Tight left quads and slight both hamstrings tightness. Joint Mobility Assessment Joint Mobility Assessment Normal PT-OP-G Mobility & Gait Start: 06/15/18 17:24 Freq: Status: Active Protocol: Document 06/15/18 17:20 EA (Rec: 06/16/18 08:57 EA [id number]) Stair Climbing Evaluation Comments Stair Climbing Comments Slight antalgic with decreased stance phase to left PT-OP-J Posture/Palpation/Skin Start: 06/15/18 17:24 Freq: Status: Active Protocol: Document 06/15/18 17:20 EA (Rec: 06/16/18 08:57 EA [id number]) Posture Evaluation Comments Posture Comments Valgus to both knees with left is more than right Palpation Assessment Location One Palpation Location Left quads tightness, hip flexor, and ITB Palpation Findings Soft Tissue Tightness Tenderness Palpation Details Patellar crepitus, left. Grade 2/5 medial patellar ligament, lateral hamstring tendon insertion. PT-OP-K Range of Motion Start: 06/15/18 17:24 Freq: Status: Active Protocol: Document 08/16/18 09:07 LRN (Rec: 08/16/18 09:54 LRN [id number]) Knee Goniometric Range of Motion Knee Measured in Degrees Left Knee ROM WFL No Patient Position Supine Flexion Active (degrees) 127 Flexion Passive (degrees) 132 Extension Active (degrees) 0 Knee ROM Limitations Comments Passive knee flex measured in standing in CKC flexion. Active knee ext was taken after stretching. PT-OP-L Special Tests Start: 06/15/18 17:24 Freq: Status: Active Protocol: Document 06/15/18 17:30 EA (Rec: 06/16/18 09:09 EA [id number]) Special Tests Knee Special Tests Anterior Draw Test Results negative Sharp's Compression Test Results positive Samia Test Test Results negative Hughston Pica Test Test Results negative Patellar Grind Test Test Results positive Korin's Test Test Results left positive Erwin Test Results both LE positive Martin's Sign Test Results Left knee positive PT-OP-M Strength Start: 06/15/18 17:24 Freq: Status: Active Protocol: Document 08/12/18 09:00 EA (Rec: 08/12/18 09:47 EA [id number]) Knee Strength Knee Manual Muscle Testing Right Reason Not Measured WFL Left Flexion (S2) 4+ Good+ Extension (L3) 4+ Good+ PT-OP-Q Treatments Start: 06/15/18 17:24 Freq: Status: Active Protocol: Document 08/19/18 10:31 LRN (Rec: 08/19/18 11:17 LRN [id number]) Therapeutic Exercises Supine Exercises SLR Supine Exercise Name SLR Side left Reps/Minutes 10 x 1 each Comments LE with foot at 12 & 10 O' Clock position Knee ext Supine Exercise Name Stretch followed by active juan quad set Reps/Minutes 5' Prone Exercises 1 Prone Exercise Name Kneeling: Quad stretch Side bilateral Reps/Minutes 60 sec hold each x2 Comments Stretch followed immediately with active knee flex 10x. Standing Exercises Pt asstd knee flex stretch on step Standing Exercise Name Active assisted knee flexion with self MWM Side left Equipment Used Step Reps/Minutes 8 Comments Self applied PA/ER of Tib[place] with flexion Other Exercises T-Ball Other Exercise Name Trunk L SB Side bilateral Reps/Minutes 10x Comments T-Ball needed to be held stable. Weaker with L SB. Lateral step ups Other Exercise Name Lateral step ups Side bilateral Equipment Used 6 step Reps/Minutes 30 x step ups Other Exercise Name Leading left Side bilateral Equipment Used 6 step Reps/Minutes 30 x Hop down Other Exercise Name Vertical jump to ground from 6 step Reps/Minutes 10x Hop lateral Other Exercise Name Hop onto 6 step Side bilateral Reps/Minutes 15x Hopping foward Other Exercise Name Hop onto 4 & 6 steps Side bilateral Reps/Minutes 6' Comments 15x 2 Other Exercise Name single L leg hopped in place Side left Reps/Minutes 10x Self-Care/Home Management Treatment Education Patient Education Home Exercise Program Activities Self-Care/Home Management Activities Issued HEP: Step ups forward & lateral; L SLR @ 10 & 12 O' clock foot position; Quad stretch in kneeling, piriformis, hip flexor. PT-OP-R Modalities Start: 06/15/18 17:24 Freq: Status: Active Protocol: Document 08/19/18 10:31 LRN (Rec: 08/19/18 11:17 LRN [id number]) Hot Pack/Cold Pack Treatment Cold Pack Location left knee Patient Position Hooklying Treatment Duration (minutes) 10 Patient Tolerance Good PT-OP-T Assessment and Plan Start: 06/15/18 17:24 Freq: Status: Active Protocol: Document 08/19/18 10:31 LRN (Rec: 08/19/18 11:17 LRN [id number]) Physical Therapy Assessment Goals Four Impairment No HEP in place [employer] Goal (LTG) Patient will comply and perform home exercises safe and independent LTG Duration 3 wks Execellent progress Three Impairment Impaired left quads functional strength [employer] Goal (LTG) Patient will perform single leg squat without difficulty for functional running LTG Duration 4 wks Excellent progress ( currently 10 SLS with slight difficulty) Two Impairment Impaired left knee ROM [employer] Goal (LTG) Patient will have left knee full ROM to enable patient perform crossfit activities without limitation LTG Duration 4 wks (stedy slow progress) 0- 125 deg knee flexion currently One Impairment LEFS score of 62/80 [employer] Goal (LTG) Will have LEFS score of 75/80 LTG Duration 4 wks (excellent progress) Assessment Summary Assessment PT has mild L knee ext limitation probably causing pain when taking a long running stride. Her L knee flex restriction is limiting her ability to squat. Advanced therapy program today with double leg hopping. Pt tolerated very well with no complaints of pain. Pt appears to have core weakness for rotation and L trunk SB. Physical Therapy Plan Frequency and Duration Frequency of Treatment 2x/Week Duration of Treatment 6 wks Plan of Care Start Date 08/12/18 Plan of Care End Date 09/23/18 Next Visit Focus/Plan Next Note Type Treatment Note Next Visit Plan Issue HEP of prone knee flex strengthening. Advance medial quad strengthening of hopping exercise as tolerated. Initiate and progress core strengthening (rotation, L SB) .
--- NOTE | 2018-08-23 15:54 | PT.OTN ---
Current Diagnoses Pain in left knee (08/23/18) Physical Therapy Treatment Note PT-OP-A Visit Information Start: 06/15/18 17:24 Freq: Status: Active Protocol: Document 08/23/18 10:33 LRN (Rec: 08/23/18 11:19 LRN [id number]) Out-Patient Physical Therapy Visit Information Visit Information Visit Type Treatment Note Visit Start Time 10:33 Visit Stop Time 11:28 Total Visit Minutes 55 Visit Number 18 Evaluation Information Evaluation Date 06/16/18 PT-OP-B Current Condition Start: 06/15/18 17:24 Freq: Status: Active Protocol: Document 06/15/18 17:20 EA (Rec: 06/16/18 08:57 EA [id number]) Current Condition History of Current Condition Onset Date 3 years ago (Chronic) Current Complaints Left knee pain History of Current Condition Patient reports present left localized knee complaint has been chronic in the last three years with a history of ACL reconstruction surgery ( patellar tendon graft) 22 years ago. Patient denies any knee injury in the last 5 years. Pt states that she has been using ICE and knee brace in the last three years to managed the condition. She mentioned three marathon in the last ten years and pain is manageable, however, pain and swelling anytime she does running lessen her ability to progress more. States diagnostic imaging performed with arthritic condition of the knee. Prior Treatments and Tests Formal PT to left knee after surgery 22 years ago (last longer due to infection) Future Testing and Treatments Planned None identified. Treatment Goals Patient/Caregiver Goals Patient would like to be able to run without aggravating the knee and with no increase of symptoms. 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) Baseline Function- Recreation/Hobbies 3x/wk crossfit training 3-5 miles/ running per week Current Functional Impairments (Reported) Functional Limitations- ADL's Independent with difficulty in full squat activities Functional Limitations- Mobility/Gait Indep with no assistive device Functional Limitations- Work/School Indepedent Functional Limitations- Recreation/ Unable to run more than three Hobbies mile a week due increased in symptoms Difficulty in full squat crossfit activities PT-OP-C Subjective Start: 06/15/18 17:24 Freq: Status: Active Protocol: Document 08/23/18 10:33 LRN (Rec: 08/23/18 11:19 LRN [id number]) OP-PT Subjective Patient Comments Patient Comments States no change. PT-OP-E Functional Tests Start: 06/15/18 17:24 Freq: Status: Active Protocol: Document 08/12/18 11:00 EA (Rec: 08/12/18 11:01 EA [id number]) Functional Tests Squat Test Score Single leg: Right able without difficulty. Left 80 deg w/ slight difficulty PT-OP-F Manual Assessment Start: 06/15/18 17:24 Freq: Status: Active Protocol: Document 06/15/18 17:20 EA (Rec: 06/16/18 08:57 EA [id number]) Manual Assessments Soft Tissue Assessment Soft Tissue Mobility Assessment Tight left quads and slight both hamstrings tightness. Joint Mobility Assessment Joint Mobility Assessment Normal PT-OP-G Mobility & Gait Start: 06/15/18 17:24 Freq: Status: Active Protocol: Document 06/15/18 17:20 EA (Rec: 06/16/18 08:57 EA [id number]) Stair Climbing Evaluation Comments Stair Climbing Comments Slight antalgic with decreased stance phase to left PT-OP-J Posture/Palpation/Skin Start: 06/15/18 17:24 Freq: Status: Active Protocol: Document 06/15/18 17:20 EA (Rec: 06/16/18 08:57 EA [id number]) Posture Evaluation Comments Posture Comments Valgus to both knees with left is more than right Palpation Assessment Location One Palpation Location Left quads tightness, hip flexor, and ITB Palpation Findings Soft Tissue Tightness Tenderness Palpation Details Patellar crepitus, left. Grade 2/5 medial patellar ligament, lateral hamstring tendon insertion. PT-OP-K Range of Motion Start: 06/15/18 17:24 Freq: Status: Active Protocol: Document 08/16/18 09:07 LRN (Rec: 08/16/18 09:54 LRN [id number]) Knee Goniometric Range of Motion Knee Measured in Degrees Left Knee ROM WFL No Patient Position Supine Flexion Active (degrees) 127 Flexion Passive (degrees) 132 Extension Active (degrees) 0 Knee ROM Limitations Comments Passive knee flex measured in standing in CKC flexion. Active knee ext was taken after stretching. PT-OP-L Special Tests Start: 06/15/18 17:24 Freq: Status: Active Protocol: Document 06/15/18 17:30 EA (Rec: 06/16/18 09:09 EA [id number]) Special Tests Knee Special Tests Anterior Draw Test Results negative Sharp's Compression Test Results positive Samia Test Test Results negative Hughston Pica Test Test Results negative Patellar Grind Test Test Results positive Korin's Test Test Results left positive Erwin Test Results both LE positive Martin's Sign Test Results Left knee positive PT-OP-M Strength Start: 06/15/18 17:24 Freq: Status: Active Protocol: Document 08/12/18 09:00 EA (Rec: 08/12/18 09:47 EA [id number]) Knee Strength Knee Manual Muscle Testing Right Reason Not Measured WFL Left Flexion (S2) 4+ Good+ Extension (L3) 4+ Good+ PT-OP-Q Treatments Start: 06/15/18 17:24 Freq: Status: Active Protocol: Document 08/23/18 10:33 LRN (Rec: 08/23/18 11:19 LRN [id number]) Gym Equipment Cable Column (Body Solid) Leg Extension Details Single leg, Double leg Resistance 20#, 70# respectively Reps/Time 12 x3, 8x 3 respectively Shuttle Recovery Unilateral Squats Details pyometrics to left side Resistance 2-5cords Shuttle Recovery Platform Stable Reps/Time x 30 reps Bilateral Squats Details 30 deg angle L>neutral>30 deg angle R Resistance 5 cords Shuttle Recovery Platform Stable Reps/Time 3 x 30 reps Shuttle Rebound Jumping up/down Exercise Details Jumping with push off of toes Reps/Duration 30x2 Jumping in/out Reps/Duration 10 x Therapeutic Exercises Supine Exercises Knee ext Supine Exercise Name Stretch followed by active juan quad set Reps/Minutes 5' 1 Supine Exercise Name Knee flexion stretch Side left Reps/Minutes 10x Comments After Shuttle recovery Prone Exercises 1 Prone Exercise Name Kneeling: Quad stretch Side bilateral Reps/Minutes 60 sec hold each x2 Comments Stretch followed immediately with active knee flex 10x. Other Exercises L knee flex stretch Other Exercise Name kneeling, standing Reps/Minutes 7' PT-OP-R Modalities Start: 06/15/18 17:24 Freq: Status: Active Protocol: Document 08/23/18 10:33 LRN (Rec: 08/23/18 11:19 LRN [id number]) Hot Pack/Cold Pack Treatment Cold Pack Location left knee Patient Position Hooklying Treatment Duration (minutes) 10 Patient Tolerance Good PT-OP-T Assessment and Plan Start: 06/15/18 17:24 Freq: Status: Active Protocol: Document 08/23/18 10:33 LRN (Rec: 08/23/18 11:19 LRN [id number]) Physical Therapy Assessment Assessment Summary Assessment Pt has very mild L knee ext limitation. Pt will try running today to assess pain onset. L knee flex restriction is limiting her ability to squat. Advanced therapy program today with double leg hopping. Pt tolerated very well with no complaints of pain. Pt appears to have core weakness for rotation and L trunk SB. Physical Therapy Plan Frequency and Duration Frequency of Treatment 2x/Week Duration of Treatment 6 wks Plan of Care Start Date 08/12/18 Plan of Care End Date 09/23/18 Next Visit Focus/Plan Next Note Type Treatment Note Next Visit Plan LEFS check. Issue HEP of prone knee flex strengthening. Advance medial quad strengthening of hopping exercise as tolerated. Initiate and progress core strengthening (rotation, L SB) .
--- NOTE | 2018-08-26 15:54 | PT.OTN ---
Current Diagnoses Pain in left knee (08/26/18) Physical Therapy Treatment Note PT-OP-A Visit Information Start: 06/15/18 17:24 Freq: Status: Active Protocol: Document 08/26/18 10:36 LRN (Rec: 08/26/18 10:49 LRN [id number]) Out-Patient Physical Therapy Visit Information Visit Information Visit Type Treatment Note Visit Start Time 10:36 Visit Stop Time 11:21 Total Visit Minutes 45 Visit Number 19 Evaluation Information Evaluation Date 06/16/18 PT-OP-B Current Condition Start: 06/15/18 17:24 Freq: Status: Active Protocol: Document 06/15/18 17:20 EA (Rec: 06/16/18 08:57 EA [id number]) Current Condition History of Current Condition Onset Date 3 years ago (Chronic) Current Complaints Left knee pain History of Current Condition Patient reports present left localized knee complaint has been chronic in the last three years with a history of ACL reconstruction surgery ( patellar tendon graft) 22 years ago. Patient denies any knee injury in the last 5 years. Pt states that she has been using ICE and knee brace in the last three years to managed the condition. She mentioned three marathon in the last ten years and pain is manageable, however, pain and swelling anytime she does running lessen her ability to progress more. States diagnostic imaging performed with arthritic condition of the knee. Prior Treatments and Tests Formal PT to left knee after surgery 22 years ago (last longer due to infection) Future Testing and Treatments Planned None identified. Treatment Goals Patient/Caregiver Goals Patient would like to be able to run without aggravating the knee and with no increase of symptoms. 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) Baseline Function- Recreation/Hobbies 3x/wk crossfit training 3-5 miles/ running per week Current Functional Impairments (Reported) Functional Limitations- ADL's Independent with difficulty in full squat activities Functional Limitations- Mobility/Gait Indep with no assistive device Functional Limitations- Work/School Indepedent Functional Limitations- Recreation/ Unable to run more than three Hobbies mile a week due increased in symptoms Difficulty in full squat crossfit activities PT-OP-C Subjective Start: 06/15/18 17:24 Freq: Status: Active Protocol: Document 08/26/18 10:36 LRN (Rec: 08/26/18 10:49 LRN [id number]) OP-PT Subjective Patient Comments Patient Comments States she went running on uneven ground, but not trails because spouse did not want to go. States running she had no pain on the unlevel surface . Will try to run trails. PT-OP-E Functional Tests Start: 06/15/18 17:24 Freq: Status: Active Protocol: Document 08/12/18 11:00 EA (Rec: 08/12/18 11:01 EA [id number]) Functional Tests Squat Test Score Single leg: Right able without difficulty. Left 80 deg w/ slight difficulty PT-OP-F Manual Assessment Start: 06/15/18 17:24 Freq: Status: Active Protocol: Document 06/15/18 17:20 EA (Rec: 06/16/18 08:57 EA [id number]) Manual Assessments Soft Tissue Assessment Soft Tissue Mobility Assessment Tight left quads and slight both hamstrings tightness. Joint Mobility Assessment Joint Mobility Assessment Normal PT-OP-G Mobility & Gait Start: 06/15/18 17:24 Freq: Status: Active Protocol: Document 06/15/18 17:20 EA (Rec: 06/16/18 08:57 EA [id number]) Stair Climbing Evaluation Comments Stair Climbing Comments Slight antalgic with decreased stance phase to left PT-OP-J Posture/Palpation/Skin Start: 06/15/18 17:24 Freq: Status: Active Protocol: Document 06/15/18 17:20 EA (Rec: 06/16/18 08:57 EA [id number]) Posture Evaluation Comments Posture Comments Valgus to both knees with left is more than right Palpation Assessment Location One Palpation Location Left quads tightness, hip flexor, and ITB Palpation Findings Soft Tissue Tightness Tenderness Palpation Details Patellar crepitus, left. Grade 2/5 medial patellar ligament, lateral hamstring tendon insertion. PT-OP-K Range of Motion Start: 06/15/18 17:24 Freq: Status: Active Protocol: Document 08/16/18 09:07 LRN (Rec: 08/16/18 09:54 LRN [id number]) Knee Goniometric Range of Motion Knee Measured in Degrees Left Knee ROM WFL No Patient Position Supine Flexion Active (degrees) 127 Flexion Passive (degrees) 132 Extension Active (degrees) 0 Knee ROM Limitations Comments Passive knee flex measured in standing in CKC flexion. Active knee ext was taken after stretching. PT-OP-L Special Tests Start: 06/15/18 17:24 Freq: Status: Active Protocol: Document 06/15/18 17:30 EA (Rec: 06/16/18 09:09 EA [id number]) Special Tests Knee Special Tests Anterior Draw Test Results negative Sharp's Compression Test Results positive Samia Test Test Results negative Hughston Pica Test Test Results negative Patellar Grind Test Test Results positive Korin's Test Test Results left positive Erwin Test Results both LE positive Martin's Sign Test Results Left knee positive PT-OP-M Strength Start: 06/15/18 17:24 Freq: Status: Active Protocol: Document 08/12/18 09:00 EA (Rec: 08/12/18 09:47 EA [id number]) Knee Strength Knee Manual Muscle Testing Right Reason Not Measured WFL Left Flexion (S2) 4+ Good+ Extension (L3) 4+ Good+ PT-OP-Q Treatments Start: 06/15/18 17:24 Freq: Status: Active Protocol: Document 08/26/18 10:36 LRN (Rec: 08/26/18 15:40 LRN [id number]) Gym Equipment Cable Column (Body Solid) Leg Curl Details Single leg, double leg Resistance 20#, 40# Reps/Time 10 X 3 Leg Extension Details Single leg, Double leg Resistance 20#, 50# respectively Reps/Time 10 x3, 10x 3 respectively Shuttle Rebound Jumping up/down Exercise Details Jumping with push off of toes Reps/Duration 1' x 3 Comments Gastroc stretch between jumps (see Therapeutic ex) Therapeutic Exercises Supine Exercises 1 Supine Exercise Name Knee flexion stretch Side left Reps/Minutes 2' Prone Exercises 1 Prone Exercise Name Quad stretch Side bilateral Reps/Minutes 60 sec hold each x2 Comments Stretch followed immediately with active knee flex 10x. Sidelying Exercises Hip AB Sidelying Exercise Name Hip AB with back against wall. Side left Equipment Used Wall Reps/Minutes 8 x Standing Exercises Pt asstd knee flex stretch on step Standing Exercise Name Active assisted knee flexion with self MWM Side left Equipment Used Step Reps/Minutes 3' Comments Self applied PA/ER of [place] with flexion Other Exercises L knee flex stretch Other Exercise Name standing Reps/Minutes 2' step ups Other Exercise Name Step ups Side bilateral Equipment Used 6 & 8 step & BOSU Ball Reps/Minutes 30 x each Comments Leading left & right Hop down Other Exercise Name Vertical jump floor to ground & back from steps Equipment Used 6, 8, 12, & 16 steps Reps/Minutes ~5 x each Hopping foward Other Exercise Name Hop onto steps Side bilateral Equipment Used 6, 8, 12, & 16 steps Reps/Minutes 6' Comments 15x 1 Other Exercise Name Eccentric loading: running motion with back leg Side left Resistance Black cord PT-OP-R Modalities Start: 06/15/18 17:24 Freq: Status: Active Protocol: Document 08/23/18 10:33 LRN (Rec: 08/23/18 11:19 LRN [id number]) Hot Pack/Cold Pack Treatment Cold Pack Location left knee Patient Position Hooklying Treatment Duration (minutes) 10 Patient Tolerance Good PT-OP-T Assessment and Plan Start: 06/15/18 17:24 Freq: Status: Active Protocol: Document 08/26/18 10:36 LRN (Rec: 08/26/18 10:49 LRN [id number]) Physical Therapy Assessment Assessment Summary Assessment Pt tolerated jumping and more aggressive exercise without onset of pain. She primarily has a feeling of instability in the L knee with landing from a jump. She has good knee extension but lacks full knee flexion. She shows core weakness for rotation and L trunk SB and possible weakness of hip AB's due to visible valgus of the knees on SLS. Was not able to issue HEP for prone knee flex or core rot & L SB strengthening. Physical Therapy Plan Frequency and Duration Frequency of Treatment 2x/Week Duration of Treatment 6 wks Plan of Care Start Date 08/12/18 Plan of Care End Date 09/23/18 Next Visit Focus/Plan Next Note Type Treatment Note Next Visit Plan LEFS check. Issue HEP of prone knee flex strengthening. Advance medial quad strengthening of hopping exercise as tolerated. Progress core strengthening ( rotation, L SB).
--- NOTE | 2018-08-31 12:09 | PT.OTN ---
Current Diagnoses Pain in left knee (08/31/18) Physical Therapy Treatment Note PT-OP-A Visit Information Start: 06/15/18 17:24 Freq: Status: Active Protocol: Document 08/31/18 09:00 EA (Rec: 08/31/18 09:02 EA [id number]) Out-Patient Physical Therapy Visit Information Visit Information Visit Type Treatment Note Visit Note Re-eval performed to this visit. Visit Start Time 08:15 Visit Stop Time 09:08 Total Visit Minutes 53 Visit Number 20 PT-OP-B Current Condition Start: 06/15/18 17:24 Freq: Status: Active Protocol: Document 06/15/18 17:20 EA (Rec: 06/16/18 08:57 EA [id number]) Current Condition History of Current Condition Onset Date 3 years ago (Chronic) Current Complaints Left knee pain History of Current Condition Patient reports present left localized knee complaint has been chronic in the last three years with a history of ACL reconstruction surgery ( patellar tendon graft) 22 years ago. Patient denies any knee injury in the last 5 years. Pt states that she has been using ICE and knee brace in the last three years to managed the condition. She mentioned three marathon in the last ten years and pain is manageable, however, pain and swelling anytime she does running lessen her ability to progress more. States diagnostic imaging performed with arthritic condition of the knee. Prior Treatments and Tests Formal PT to left knee after surgery 22 years ago (last longer due to infection) Future Testing and Treatments Planned None identified. Treatment Goals Patient/Caregiver Goals Patient would like to be able to run without aggravating the knee and with no increase of symptoms. 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 Function- Recreation/Hobbies 3x/wk crossfit training 3-5 miles/ running per week Current Functional Impairments (Reported) Functional Limitations- ADL's Independent with difficulty in full squat activities Functional Limitations- Mobility/Gait Indep with no assistive device Functional Limitations- Work/School Indepedent Functional Limitations- Recreation/ Unable to run more than three Hobbies mile a week due increased in symptoms Difficulty in full squat crossfit activities PT-OP-C Subjective Start: 06/15/18 17:24 Freq: Status: Active Protocol: Document 08/31/18 10:29 EA (Rec: 08/31/18 10:39 EA [id number]) OP-PT Subjective Patient Comments Patient Comments Pt reports that she feels improving and has been consistent with quads strengthening; states left quads still tight. Reports ocassional twinges when there were no warm-up. Patient Reported Progress Improving PT-OP-E Functional Tests Start: 06/15/18 17:24 Freq: Status: Active Protocol: Document 08/12/18 11:00 EA (Rec: 08/12/18 11:01 EA [id number]) Functional Tests Squat Test Score Single leg: Right able without difficulty. Left 80 deg w/ slight difficulty PT-OP-F Manual Assessment Start: 06/15/18 17:24 Freq: Status: Active Protocol: Document 06/15/18 17:20 EA (Rec: 06/16/18 08:57 EA [id number]) Manual Assessments Soft Tissue Assessment Soft Tissue Mobility Assessment Tight left quads and slight both hamstrings tightness. Joint Mobility Assessment Joint Mobility Assessment Normal PT-OP-G Mobility & Gait Start: 06/15/18 17:24 Freq: Status: Active Protocol: Document 06/15/18 17:20 EA (Rec: 06/16/18 08:57 EA [id number]) Stair Climbing Evaluation Comments Stair Climbing Comments Slight antalgic with decreased stance phase to left PT-OP-J Posture/Palpation/Skin Start: 06/15/18 17:24 Freq: Status: Active Protocol: Document 06/15/18 17:20 EA (Rec: 06/16/18 08:57 EA [id number]) Posture Evaluation Comments Posture Comments Valgus to both knees with left is more than right Palpation Assessment Location One Palpation Location Left quads tightness, hip flexor, and ITB Palpation Findings Soft Tissue Tightness Tenderness Palpation Details Patellar crepitus, left. Grade 2/5 medial patellar ligament, lateral hamstring tendon insertion. PT-OP-K Range of Motion Start: 06/15/18 17:24 Freq: Status: Active Protocol: Document 08/16/18 09:07 LRN (Rec: 08/16/18 09:54 LRN [id number]) Knee Goniometric Range of Motion Knee Measured in Degrees Left Knee ROM WFL No Patient Position Supine Flexion Active (degrees) 127 Flexion Passive (degrees) 132 Extension Active (degrees) 0 Knee ROM Limitations Comments Passive knee flex measured in standing in CKC flexion. Active knee ext was taken after stretching. PT-OP-L Special Tests Start: 06/15/18 17:24 Freq: Status: Active Protocol: Document 06/15/18 17:30 EA (Rec: 06/16/18 09:09 EA [id number]) Special Tests Knee Special Tests Anterior Draw Test Results negative Sharp's Compression Test Results positive Samia Test Test Results negative Hughston Pica Test Test Results negative Patellar Grind Test Test Results positive Korin's Test Test Results left positive Erwin Test Results both LE positive Martin's Sign Test Results Left knee positive PT-OP-M Strength Start: 06/15/18 17:24 Freq: Status: Active Protocol: Document 08/12/18 09:00 EA (Rec: 08/12/18 09:47 EA [id number]) Knee Strength Knee Manual Muscle Testing Right Reason Not Measured WFL Left Flexion (S2) 4+ Good+ Extension (L3) 4+ Good+ PT-OP-Q Treatments Start: 06/15/18 17:24 Freq: Status: Active Protocol: Document 08/31/18 10:29 EA (Rec: 08/31/18 10:39 EA [id number]) Cardio Equipment Bicycle (Upright) Duration (Minutes) 5 Resistance 6 Seat Position 3 Other 5' to start, 5' to end. Therapeutic Exercises Prone Exercises 1 Prone Exercise Name Quad stretch Side bilateral Reps/Minutes 60 sec hold each x2 Comments Stretch followed immediately with active knee flex 10x. Standing Exercises 6 Standing Exercise Name single leg squat Side bilateral Reps/Minutes x 10 reps x 2 sets 5 Standing Exercise Name 30 lbs cable single leg squat Reps/Minutes x 10 reps x 2 sets 4 Standing Exercise Name Half lunge quad stretch Comments 2pillows behind to sit with full stretch 3 Standing Exercise Name side step squat Side bilateral Resistance 5 lbs Reps/Minutes x 10 ft x 3 laps Comments w/ shoulder front raises 2 Standing Exercise Name FWD lunges Resistance 10# Reps/Minutes x 12 ft x 3 Comments Front raises 1 Standing Exercise Name Steady lunges Resistance 5lbs# each hand Reps/Minutes x 8 reps x 2 sets Other Exercises Hop down Other Exercise Name Vertical jump floor to ground & back from steps Equipment Used 6, 8, 12, & 16 steps Reps/Minutes ~5 x each Hop lateral Other Exercise Name Hop onto 6 step Side bilateral Reps/Minutes 15x Hopping foward Other Exercise Name Hop onto steps Side bilateral Equipment Used 6, 8, 12, & 16 steps Reps/Minutes 6' Comments 15x 6 Other Exercise Name 4 hop in/out lat direction Resistance red cord Reps/Minutes x 8 reps x 2 sets 5 Other Exercise Name Leg long hopped Side left Reps/Minutes x 5 x 3 sets Comments 3ft 4 Other Exercise Name cord side to side hopped Resistance red cord Reps/Minutes x 30 secs Comments with BUSO 3 Other Exercise Name 12 sit to stand Equipment Used x 12 reps 2 Other Exercise Name single L leg hopped in place Side left Reps/Minutes 10x PT-OP-R Modalities Start: 06/15/18 17:24 Freq: Status: Active Protocol: Document 08/31/18 10:29 EA (Rec: 08/31/18 10:39 EA [id number]) Hot Pack/Cold Pack Treatment Cold Pack Location left knee Patient Position Hooklying Treatment Duration (minutes) 10 Patient Tolerance Good PT-OP-T Assessment and Plan Start: 06/15/18 17:24 Freq: Status: Active Protocol: Document 08/31/18 10:29 EA (Rec: 08/31/18 10:39 EA [id number]) Physical Therapy Assessment Assessment Summary Assessment Improved single leg high impact exercises with no onset of pain. Patient cont. to improve. Advance as tolerated Physical Therapy Plan Next Visit Focus/Plan Next Note Type Treatment Note Next Visit Plan Advance. Begin treadmill for wram up.
--- NOTE | 2018-09-02 16:33 | PT.OTN ---
Current Diagnoses Pain in left knee (09/02/18) Physical Therapy Treatment Note PT-OP-A Visit Information Start: 06/15/18 17:24 Freq: Status: Active Protocol: Document 09/02/18 16:03 EA (Rec: 09/02/18 16:33 EA [id number]) Out-Patient Physical Therapy Visit Information Visit Information Visit Type Treatment Note Visit Start Time 15:15 Visit Stop Time 16:00 Total Visit Minutes 48 Visit Number 21 PT-OP-B Current Condition Start: 06/15/18 17:24 Freq: Status: Active Protocol: Document 06/15/18 17:20 EA (Rec: 06/16/18 08:57 EA [id number]) Current Condition History of Current Condition Onset Date 3 years ago (Chronic) Current Complaints Left knee pain History of Current Condition Patient reports present left localized knee complaint has been chronic in the last three years with a history of ACL reconstruction surgery ( patellar tendon graft) 22 years ago. Patient denies any knee injury in the last 5 years. Pt states that she has been using ICE and knee brace in the last three years to managed the condition. She mentioned three marathon in the last ten years and pain is manageable, however, pain and swelling anytime she does running lessen her ability to progress more. States diagnostic imaging performed with arthritic condition of the knee. Prior Treatments and Tests Formal PT to left knee after surgery 22 years ago (last longer due to infection) Future Testing and Treatments Planned None identified. Treatment Goals Patient/Caregiver Goals Patient would like to be able to run without aggravating the knee and with no increase of symptoms. 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) Baseline Function- Recreation/Hobbies 3x/wk crossfit training 3-5 miles/ running per week Current Functional Impairments (Reported) Functional Limitations- ADL's Independent with difficulty in full squat activities Functional Limitations- Mobility/Gait Indep with no assistive device Functional Limitations- Work/School Indepedent Functional Limitations- Recreation/ Unable to run more than three Hobbies mile a week due increased in symptoms Difficulty in full squat crossfit activities PT-OP-C Subjective Start: 06/15/18 17:24 Freq: Status: Active Protocol: Document 09/02/18 16:03 EA (Rec: 09/02/18 16:33 EA [id number]) OP-PT Subjective Patient Comments Patient Comments Pt report unable to perform HEP due to bust schedule. PT-OP-E Functional Tests Start: 06/15/18 17:24 Freq: Status: Active Protocol: Document 08/12/18 11:00 EA (Rec: 08/12/18 11:01 EA [id number]) Functional Tests Squat Test Score Single leg: Right able without difficulty. Left 80 deg w/ slight difficulty PT-OP-F Manual Assessment Start: 06/15/18 17:24 Freq: Status: Active Protocol: Document 06/15/18 17:20 EA (Rec: 06/16/18 08:57 EA [id number]) Manual Assessments Soft Tissue Assessment Soft Tissue Mobility Assessment Tight left quads and slight both hamstrings tightness. Joint Mobility Assessment Joint Mobility Assessment Normal PT-OP-G Mobility & Gait Start: 06/15/18 17:24 Freq: Status: Active Protocol: Document 06/15/18 17:20 EA (Rec: 06/16/18 08:57 EA [id number]) Stair Climbing Evaluation Comments Stair Climbing Comments Slight antalgic with decreased stance phase to left PT-OP-J Posture/Palpation/Skin Start: 06/15/18 17:24 Freq: Status: Active Protocol: Document 06/15/18 17:20 EA (Rec: 06/16/18 08:57 EA [id number]) Posture Evaluation Comments Posture Comments Valgus to both knees with left is more than right Palpation Assessment Location One Palpation Location Left quads tightness, hip flexor, and ITB Palpation Findings Soft Tissue Tightness Tenderness Palpation Details Patellar crepitus, left. Grade 2/5 medial patellar ligament, lateral hamstring tendon insertion. PT-OP-K Range of Motion Start: 06/15/18 17:24 Freq: Status: Active Protocol: Document 08/16/18 09:07 LRN (Rec: 08/16/18 09:54 LRN [id number]) Knee Goniometric Range of Motion Knee Measured in Degrees Left Knee ROM WFL No Patient Position Supine Flexion Active (degrees) 127 Flexion Passive (degrees) 132 Extension Active (degrees) 0 Knee ROM Limitations Comments Passive knee flex measured in standing in CKC flexion. Active knee ext was taken after stretching. PT-OP-L Special Tests Start: 06/15/18 17:24 Freq: Status: Active Protocol: Document 06/15/18 17:30 EA (Rec: 06/16/18 09:09 EA [id number]) Special Tests Knee Special Tests Anterior Draw Test Results negative Sharp's Compression Test Results positive Samia Test Test Results negative Hughston Pica Test Test Results negative Patellar Grind Test Test Results positive Korin's Test Test Results left positive Erwin Test Results both LE positive Martin's Sign Test Results Left knee positive PT-OP-M Strength Start: 06/15/18 17:24 Freq: Status: Active Protocol: Document 08/12/18 09:00 EA (Rec: 08/12/18 09:47 EA [id number]) Knee Strength Knee Manual Muscle Testing Right Reason Not Measured WFL Left Flexion (S2) 4+ Good+ Extension (L3) 4+ Good+ PT-OP-Q Treatments Start: 06/15/18 17:24 Freq: Status: Active Protocol: Document 09/02/18 16:03 EA (Rec: 09/02/18 16:33 EA [id number]) Cardio Equipment Bicycle (Upright) Duration (Minutes) 5 Resistance 6 Seat Position 3 Other 5' to start, 5' to end. Gym Equipment Cable Column (Body Solid) Leg Extension Details Single leg, Double leg Resistance 20#, 50# respectively Reps/Time 10 x3, 10x 3 respectively Therapeutic Exercises Prone Exercises 1 Prone Exercise Name Quad stretch Side bilateral Reps/Minutes 60 sec hold each x2 Comments Stretch followed immediately with active knee flex 10x. Standing Exercises 4 Standing Exercise Name Half lunge quad stretch Comments 2pillows behind to sit with full stretch 3 Standing Exercise Name side step squat Side bilateral Resistance 5 lbs Reps/Minutes x 10 ft x 3 laps Comments w/ shoulder front raises 2 Standing Exercise Name FWD lunges Resistance 10# Reps/Minutes x 12 ft x 3 Comments Front raises Other Exercises Hop down Other Exercise Name Vertical jump floor to ground & back from steps Equipment Used 6, 8, 12, & 16 steps Reps/Minutes ~5 x each Hop lateral Other Exercise Name Hop onto 6 step Side bilateral Reps/Minutes 15x 6 Other Exercise Name 4 hop in/out lat direction Resistance red cord Reps/Minutes x 8 reps x 2 sets 5 Other Exercise Name Leg long hopped Side left Reps/Minutes x 5 x 3 sets Comments 3ft 3 Other Exercise Name 12 sit to stand Equipment Used x 12 reps PT-OP-R Modalities Start: 06/15/18 17:24 Freq: Status: Active Protocol: Document 09/02/18 16:03 EA (Rec: 09/02/18 16:33 EA [id number]) Hot Pack/Cold Pack Treatment Cold Pack Location left knee Patient Position Hooklying Treatment Duration (minutes) 10 Patient Tolerance Good PT-OP-T Assessment and Plan Start: 06/15/18 17:24 Freq: Status: Active Protocol: Document 09/02/18 16:03 EA (Rec: 09/02/18 16:33 EA [id number]) Physical Therapy Assessment Assessment Summary Assessment Tolerated treatment with minor discomfort noted at leg extension. Overall patient continue to progress. Physical Therapy Plan Next Visit Focus/Plan Next Note Type Treatment Note Next Visit Plan Advance. Begin treadmill for warm up.
--- NOTE | 2018-09-07 12:48 | PT.OTN ---
Current Diagnoses Pain in left knee (09/07/18) Physical Therapy Treatment Note PT-OP-A Visit Information Start: 06/15/18 17:24 Freq: Status: Active Protocol: Document 09/07/18 12:12 EA (Rec: 09/07/18 12:16 EA [id number]) Out-Patient Physical Therapy Visit Information Visit Information Visit Type Treatment Note Visit Start Time 10:36 Visit Stop Time 11:23 Total Visit Minutes 58 Visit Number 22 PT-OP-B Current Condition Start: 06/15/18 17:24 Freq: Status: Active Protocol: Document 06/15/18 17:20 EA (Rec: 06/16/18 08:57 EA [id number]) Current Condition History of Current Condition Onset Date 3 years ago (Chronic) Current Complaints Left knee pain History of Current Condition Patient reports present left localized knee complaint has been chronic in the last three years with a history of ACL reconstruction surgery ( patellar tendon graft) 22 years ago. Patient denies any knee injury in the last 5 years. Pt states that she has been using ICE and knee brace in the last three years to managed the condition. She mentioned three marathon in the last ten years and pain is manageable, however, pain and swelling anytime she does running lessen her ability to progress more. States diagnostic imaging performed with arthritic condition of the knee. Prior Treatments and Tests Formal PT to left knee after surgery 22 years ago (last longer due to infection) Future Testing and Treatments Planned None identified. Treatment Goals Patient/Caregiver Goals Patient would like to be able to run without aggravating the knee and with no increase of symptoms. 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) Baseline Function- Recreation/Hobbies 3x/wk crossfit training 3-5 miles/ running per week Current Functional Impairments (Reported) Functional Limitations- ADL's Independent with difficulty in full squat activities Functional Limitations- Mobility/Gait Indep with no assistive device Functional Limitations- Work/School Indepedent Functional Limitations- Recreation/ Unable to run more than three Hobbies mile a week due increased in symptoms Difficulty in full squat crossfit activities PT-OP-C Subjective Start: 06/15/18 17:24 Freq: Status: Active Protocol: Document 09/07/18 12:12 EA (Rec: 09/07/18 12:16 EA [id number]) OP-PT Subjective Patient Comments Patient Comments Pt reports feels left swelled up after playing lacrose yesterday; states a bit running over the weekend and feels good about it Patient Reported Progress Improving PT-OP-E Functional Tests Start: 06/15/18 17:24 Freq: Status: Active Protocol: Document 08/12/18 11:00 EA (Rec: 08/12/18 11:01 EA [id number]) Functional Tests Squat Test Score Single leg: Right able without difficulty. Left 80 deg w/ slight difficulty PT-OP-F Manual Assessment Start: 06/15/18 17:24 Freq: Status: Active Protocol: Document 06/15/18 17:20 EA (Rec: 06/16/18 08:57 EA [id number]) Manual Assessments Soft Tissue Assessment Soft Tissue Mobility Assessment Tight left quads and slight both hamstrings tightness. Joint Mobility Assessment Joint Mobility Assessment Normal PT-OP-G Mobility & Gait Start: 06/15/18 17:24 Freq: Status: Active Protocol: Document 06/15/18 17:20 EA (Rec: 06/16/18 08:57 EA [id number]) Stair Climbing Evaluation Comments Stair Climbing Comments Slight antalgic with decreased stance phase to left PT-OP-J Posture/Palpation/Skin Start: 06/15/18 17:24 Freq: Status: Active Protocol: Document 06/15/18 17:20 EA (Rec: 06/16/18 08:57 EA [id number]) Posture Evaluation Comments Posture Comments Valgus to both knees with left is more than right Palpation Assessment Location One Palpation Location Left quads tightness, hip flexor, and ITB Palpation Findings Soft Tissue Tightness Tenderness Palpation Details Patellar crepitus, left. Grade 2/5 medial patellar ligament, lateral hamstring tendon insertion. PT-OP-K Range of Motion Start: 06/15/18 17:24 Freq: Status: Active Protocol: Document 08/16/18 09:07 LRN (Rec: 08/16/18 09:54 LRN [id number]) Knee Goniometric Range of Motion Knee Measured in Degrees Left Knee ROM WFL No Patient Position Supine Flexion Active (degrees) 127 Flexion Passive (degrees) 132 Extension Active (degrees) 0 Knee ROM Limitations Comments Passive knee flex measured in standing in CKC flexion. Active knee ext was taken after stretching. PT-OP-L Special Tests Start: 06/15/18 17:24 Freq: Status: Active Protocol: Document 06/15/18 17:30 EA (Rec: 06/16/18 09:09 EA [id number]) Special Tests Knee Special Tests Anterior Draw Test Results negative Sharp's Compression Test Results positive Samia Test Test Results negative Hughston Pica Test Test Results negative Patellar Grind Test Test Results positive Korin's Test Test Results left positive Erwin Test Results both LE positive Martin's Sign Test Results Left knee positive PT-OP-M Strength Start: 06/15/18 17:24 Freq: Status: Active Protocol: Document 08/12/18 09:00 EA (Rec: 08/12/18 09:47 EA [id number]) Knee Strength Knee Manual Muscle Testing Right Reason Not Measured WFL Left Flexion (S2) 4+ Good+ Extension (L3) 4+ Good+ PT-OP-Q Treatments Start: 06/15/18 17:24 Freq: Status: Active Protocol: Document 09/07/18 12:12 EA (Rec: 09/07/18 12:16 EA [id number]) Cardio Equipment Treadmill Duration (Minutes) 8 Speed 3-8 Other interval 30: 60 seconds Gym Equipment Cable Column (Body Solid) Leg Extension Details Single leg, Double leg Resistance 20#, 50# respectively Reps/Time 10 x3, 10x 3 respectively Therapeutic Exercises Prone Exercises 1 Prone Exercise Name Quad stretch Side bilateral Reps/Minutes 60 sec hold each x2 Comments Stretch followed immediately with active knee flex 10x. Standing Exercises 6 Standing Exercise Name single leg squat Side bilateral Reps/Minutes x 10 reps x 2 sets Comments on blue foam 3 Standing Exercise Name side step squat Side bilateral Resistance 5 lbs Reps/Minutes x 10 ft x 3 laps Comments w/ shoulder front raises 2 Standing Exercise Name FWD lunges Resistance 10# Reps/Minutes x 12 ft x 3 Comments Front raises 1 Standing Exercise Name Steady lunges Resistance 5lbs# each hand Reps/Minutes x 8 reps x 2 sets Other Exercises step ups Other Exercise Name Step ups Side bilateral Equipment Used 6 & 8 step & BOSU Ball Reps/Minutes 30 x each Comments Leading left & right Hop down Other Exercise Name Vertical jump floor to ground & back from steps Equipment Used 6, 8, 12, & 16 steps Reps/Minutes ~5 x each Hopping foward Other Exercise Name Hop onto steps Side bilateral Equipment Used 6, 8, 12, & 16 steps Reps/Minutes 6' Comments 15x 6 Other Exercise Name 4 hop in/out lat direction Resistance red cord Reps/Minutes x 8 reps x 2 sets 5 Other Exercise Name Leg long hopped Side left Reps/Minutes x 5 x 3 sets Comments 3ft 2 Other Exercise Name single L leg hopped in place: side to side and fwd over a stick Side left Reps/Minutes 10x x 2 PT-OP-R Modalities Start: 06/15/18 17:24 Freq: Status: Active Protocol: Document 09/07/18 12:45 EA (Rec: 09/07/18 12:48 EA [id number]) Hot Pack/Cold Pack Treatment Cold Pack Location left knee Patient Position Hooklying Treatment Duration (minutes) 10 Patient Tolerance Good PT-OP-T Assessment and Plan Start: 06/15/18 17:24 Freq: Status: Active Protocol: Document 09/07/18 12:45 EA (Rec: 09/07/18 12:48 EA [id number]) Physical Therapy Assessment Assessment Summary Assessment Patient exhibits improved mod/ high impact left knee stability with with no discomfort noted however requires verbal support to increased confidence prior to task. Patient continue to progress. Physical Therapy Plan Next Visit Focus/Plan Next Note Type Treatment Note Next Visit Plan advance as tolerated. Side to side agility
--- NOTE | 2018-09-09 13:57 | PT.OTN ---
Current Diagnoses Pain in left knee (09/09/18) Physical Therapy Treatment Note PT-OP-A Visit Information Start: 06/15/18 17:24 Freq: Status: Active Protocol: Document 09/09/18 13:47 EA (Rec: 09/09/18 13:56 EA [id number]) Out-Patient Physical Therapy Visit Information Visit Information Visit Type Treatment Note Visit Start Time 13:00 Visit Stop Time 13:45 Total Visit Minutes 59 Visit Number 23 PT-OP-B Current Condition Start: 06/15/18 17:24 Freq: Status: Active Protocol: Document 06/15/18 17:20 EA (Rec: 06/16/18 08:57 EA [id number]) Current Condition History of Current Condition Onset Date 3 years ago (Chronic) Current Complaints Left knee pain History of Current Condition Patient reports present left localized knee complaint has been chronic in the last three years with a history of ACL reconstruction surgery ( patellar tendon graft) 22 years ago. Patient denies any knee injury in the last 5 years. Pt states that she has been using ICE and knee brace in the last three years to managed the condition. She mentioned three marathon in the last ten years and pain is manageable, however, pain and swelling anytime she does running lessen her ability to progress more. States diagnostic imaging performed with arthritic condition of the knee. Prior Treatments and Tests Formal PT to left knee after surgery 22 years ago (last longer due to infection) Future Testing and Treatments Planned None identified. Treatment Goals Patient/Caregiver Goals Patient would like to be able to run without aggravating the knee and with no increase of symptoms. 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 Function- Recreation/Hobbies 3x/wk crossfit training 3-5 miles/ running per week Current Functional Impairments (Reported) Functional Limitations- ADL's Independent with difficulty in full squat activities Functional Limitations- Mobility/Gait Indep with no assistive device Functional Limitations- Work/School Indepedent Functional Limitations- Recreation/ Unable to run more than three Hobbies mile a week due increased in symptoms Difficulty in full squat crossfit activities PT-OP-C Subjective Start: 06/15/18 17:24 Freq: Status: Active Protocol: Document 09/09/18 13:47 EA (Rec: 09/09/18 13:56 EA [id number]) OP-PT Subjective Patient Comments Patient Comments Pt reports brought her in preparation for vacation as she wants her to get involved with her HEP. Patient Reported Progress Improving PT-OP-E Functional Tests Start: 06/15/18 17:24 Freq: Status: Active Protocol: Document 08/12/18 11:00 EA (Rec: 08/12/18 11:01 EA [id number]) Functional Tests Squat Test Score Single leg: Right able without difficulty. Left 80 deg w/ slight difficulty PT-OP-F Manual Assessment Start: 06/15/18 17:24 Freq: Status: Active Protocol: Document 06/15/18 17:20 EA (Rec: 06/16/18 08:57 EA [id number]) Manual Assessments Soft Tissue Assessment Soft Tissue Mobility Assessment Tight left quads and slight both hamstrings tightness. Joint Mobility Assessment Joint Mobility Assessment Normal PT-OP-G Mobility & Gait Start: 06/15/18 17:24 Freq: Status: Active Protocol: Document 06/15/18 17:20 EA (Rec: 06/16/18 08:57 EA [id number]) Stair Climbing Evaluation Comments Stair Climbing Comments Slight antalgic with decreased stance phase to left PT-OP-J Posture/Palpation/Skin Start: 06/15/18 17:24 Freq: Status: Active Protocol: Document 06/15/18 17:20 EA (Rec: 06/16/18 08:57 EA [id number]) Posture Evaluation Comments Posture Comments Valgus to both knees with left is more than right Palpation Assessment Location One Palpation Location Left quads tightness, hip flexor, and ITB Palpation Findings Soft Tissue Tightness Tenderness Palpation Details Patellar crepitus, left. Grade 2/5 medial patellar ligament, lateral hamstring tendon insertion. PT-OP-K Range of Motion Start: 06/15/18 17:24 Freq: Status: Active Protocol: Document 08/16/18 09:07 LRN (Rec: 08/16/18 09:54 LRN [id number]) Knee Goniometric Range of Motion Knee Measured in Degrees Left Knee ROM WFL No Patient Position Supine Flexion Active (degrees) 127 Flexion Passive (degrees) 132 Extension Active (degrees) 0 Knee ROM Limitations Comments Passive knee flex measured in standing in CKC flexion. Active knee ext was taken after stretching. PT-OP-L Special Tests Start: 06/15/18 17:24 Freq: Status: Active Protocol: Document 06/15/18 17:30 EA (Rec: 06/16/18 09:09 EA [id number]) Special Tests Knee Special Tests Anterior Draw Test Results negative Sharp's Compression Test Results positive Samia Test Test Results negative Hughston Pica Test Test Results negative Patellar Grind Test Test Results positive Korin's Test Test Results left positive Erwin Test Results both LE positive Martin's Sign Test Results Left knee positive PT-OP-M Strength Start: 06/15/18 17:24 Freq: Status: Active Protocol: Document 08/12/18 09:00 EA (Rec: 08/12/18 09:47 EA [id number]) Knee Strength Knee Manual Muscle Testing Right Reason Not Measured WFL Left Flexion (S2) 4+ Good+ Extension (L3) 4+ Good+ PT-OP-Q Treatments Start: 06/15/18 17:24 Freq: Status: Active Protocol: Document 09/09/18 13:47 EA (Rec: 09/09/18 13:56 EA [id number]) Cardio Equipment Bicycle (Upright) Duration (Minutes) 5 Resistance 6 Seat Position 3 Other 5' to start, 5' to end. Gym Equipment Cable Column (Body Solid) Leg Extension Details Single leg, Double leg Resistance 20#, 60# respectively Reps/Time 10 x3, 10x 3 respectively Therapeutic Exercises Prone Exercises 1 Prone Exercise Name Quad stretch Side bilateral Reps/Minutes 60 sec hold each x2 Comments Stretch followed immediately with active knee flex 10x. Standing Exercises 6 Standing Exercise Name single leg squat Side bilateral Reps/Minutes x 10 reps x 2 sets Comments on blue foam 5 Standing Exercise Name 30 lbs cable single leg squat Reps/Minutes x 10 reps x 2 sets 4 Standing Exercise Name Half lunge quad stretch Comments 2pillows behind to sit with full stretch 3 Standing Exercise Name side step squat Side bilateral Resistance 10 lbs Reps/Minutes x 10 ft x 3 laps Comments w/ shoulder front raises 2 Standing Exercise Name FWD lunges Resistance 10# Reps/Minutes x 12 ft x 3 Comments Front raises 1 Standing Exercise Name Steady lunges Resistance 5lbs# each hand Reps/Minutes x 8 reps x 2 sets Other Exercises step ups Other Exercise Name Step ups Side bilateral Equipment Used 6 & 8 step & BOSU Ball Reps/Minutes 30 x each Comments Leading left & right Hop down Other Exercise Name Vertical jump floor to ground & back from steps Equipment Used 6, 8, 12, & 16 steps Reps/Minutes ~5 x each 6 Other Exercise Name BUSO side to side lunge Reps/Minutes x 10 reps x 2 sets 5 Other Exercise Name Leg long hopped Side left Reps/Minutes x 5 x 3 sets Comments 3ft 4 Other Exercise Name Floor square coordination exercises: Reps/Minutes x 30 secs x 2 sets. Comments Joggle inside to outside PT-OP-R Modalities Start: 06/15/18 17:24 Freq: Status: Active Protocol: Document 09/09/18 13:47 EA (Rec: 09/09/18 13:56 EA [id number]) Hot Pack/Cold Pack Treatment Cold Pack Location left knee Patient Position Hooklying Treatment Duration (minutes) 10 Patient Tolerance Good PT-OP-T Assessment and Plan Start: 06/15/18 17:24 Freq: Status: Active Protocol: Document 09/09/18 13:47 EA (Rec: 09/09/18 13:56 EA [id number]) Physical Therapy Assessment Assessment Summary Assessment Improved knee flexion range to 127 degrees noted after stretch. Form is much improved with all leg exercises. Single leg hop over side to side showed more stable right then left, however much improved. Overall patient is improved in terms of symptoms during and after the exercises. Physical Therapy Plan Next Visit Focus/Plan Next Note Type Treatment Note Next Visit Plan Possible discharge next visit.
--- NOTE | 2018-09-16 10:25 | PT.OTN ---
Current Diagnoses Pain in left knee (09/16/18) Physical Therapy Treatment Note PT-OP-A Visit Information Start: 06/15/18 17:24 Freq: Status: Active Protocol: Document 09/16/18 10:14 EA (Rec: 09/16/18 10:23 EA [id number]) Out-Patient Physical Therapy Visit Information Visit Information Visit Type Treatment Note Visit Note discharge performed today Visit Start Time 08:15 Visit Stop Time 09:00 Total Visit Minutes 40 Visit Number 24 PT-OP-B Current Condition Start: 06/15/18 17:24 Freq: Status: Active Protocol: Document 06/15/18 17:20 EA (Rec: 06/16/18 08:57 EA [id number]) Current Condition History of Current Condition Onset Date 3 years ago (Chronic) Current Complaints Left knee pain History of Current Condition Patient reports present left localized knee complaint has been chronic in the last three years with a history of ACL reconstruction surgery ( patellar tendon graft) 22 years ago. Patient denies any knee injury in the last 5 years. Pt states that she has been using ICE and knee brace in the last three years to managed the condition. She mentioned three marathon in the last ten years and pain is manageable, however, pain and swelling anytime she does running lessen her ability to progress more. States diagnostic imaging performed with arthritic condition of the knee. Prior Treatments and Tests Formal PT to left knee after surgery 22 years ago (last longer due to infection) Future Testing and Treatments Planned None identified. Treatment Goals Patient/Caregiver Goals Patient would like to be able to run without aggravating the knee and with no increase of symptoms. 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) Baseline Function- Recreation/Hobbies 3x/wk crossfit training 3-5 miles/ running per week Current Functional Impairments (Reported) Functional Limitations- ADL's Independent with difficulty in full squat activities Functional Limitations- Mobility/Gait Indep with no assistive device Functional Limitations- Work/School Indepedent Functional Limitations- Recreation/ Unable to run more than three Hobbies mile a week due increased in symptoms Difficulty in full squat crossfit activities PT-OP-C Subjective Start: 06/15/18 17:24 Freq: Status: Active Protocol: Document 09/16/18 10:14 EA (Rec: 09/16/18 10:23 EA [id number]) OP-PT Subjective Patient Comments Patient Comments Pt reports that she understands that it her last todayh; states would like to learn more about safe home exercises and as well fitness exercises. Patient Reported Progress Improving PT-OP-E Functional Tests Start: 06/15/18 17:24 Freq: Status: Active Protocol: Document 08/12/18 11:00 EA (Rec: 08/12/18 11:01 EA [id number]) Functional Tests Squat Test Score Single leg: Right able without difficulty. Left 80 deg w/ slight difficulty PT-OP-F Manual Assessment Start: 06/15/18 17:24 Freq: Status: Active Protocol: Document 06/15/18 17:20 EA (Rec: 06/16/18 08:57 EA [id number]) Manual Assessments Soft Tissue Assessment Soft Tissue Mobility Assessment Tight left quads and slight both hamstrings tightness. Joint Mobility Assessment Joint Mobility Assessment Normal PT-OP-G Mobility & Gait Start: 06/15/18 17:24 Freq: Status: Active Protocol: Document 06/15/18 17:20 EA (Rec: 06/16/18 08:57 EA [id number]) Stair Climbing Evaluation Comments Stair Climbing Comments Slight antalgic with decreased stance phase to left PT-OP-J Posture/Palpation/Skin Start: 06/15/18 17:24 Freq: Status: Active Protocol: Document 06/15/18 17:20 EA (Rec: 06/16/18 08:57 EA [id number]) Posture Evaluation Comments Posture Comments Valgus to both knees with left is more than right Palpation Assessment Location One Palpation Location Left quads tightness, hip flexor, and ITB Palpation Findings Soft Tissue Tightness Tenderness Palpation Details Patellar crepitus, left. Grade 2/5 medial patellar ligament, lateral hamstring tendon insertion. PT-OP-K Range of Motion Start: 06/15/18 17:24 Freq: Status: Active Protocol: Document 08/16/18 09:07 LRN (Rec: 08/16/18 09:54 LRN [id number]) Knee Goniometric Range of Motion Knee Measured in Degrees Left Knee ROM WFL No Patient Position Supine Flexion Active (degrees) 127 Flexion Passive (degrees) 132 Extension Active (degrees) 0 Knee ROM Limitations Comments Passive knee flex measured in standing in CKC flexion. Active knee ext was taken after stretching. PT-OP-L Special Tests Start: 06/15/18 17:24 Freq: Status: Active Protocol: Document 06/15/18 17:30 EA (Rec: 06/16/18 09:09 EA [id number]) Special Tests Knee Special Tests Anterior Draw Test Results negative Sharp's Compression Test Results positive Samia Test Test Results negative Hughston Pica Test Test Results negative Patellar Grind Test Test Results positive Korin's Test Test Results left positive Erwin Test Results both LE positive Martin's Sign Test Results Left knee positive PT-OP-M Strength Start: 06/15/18 17:24 Freq: Status: Active Protocol: Document 08/12/18 09:00 EA (Rec: 08/12/18 09:47 EA [id number]) Knee Strength Knee Manual Muscle Testing Right Reason Not Measured WFL Left Flexion (S2) 4+ Good+ Extension (L3) 4+ Good+ PT-OP-Q Treatments Start: 06/15/18 17:24 Freq: Status: Active Protocol: Document 09/16/18 10:14 EA (Rec: 09/16/18 10:23 EA [id number]) Cardio Equipment Treadmill Duration (Minutes) 10 Speed 3-8 Other interval 30: 60 seconds Therapeutic Exercises Prone Exercises 1 Prone Exercise Name Quad stretch Side bilateral Reps/Minutes 60 sec hold each x2 Comments Stretch followed immediately with active knee flex 10x. Standing Exercises 6 Standing Exercise Name single leg squat Side bilateral Reps/Minutes x 10 reps x 2 sets Comments on blue foam 3 Standing Exercise Name side step squat Side bilateral Resistance 10 lbs Reps/Minutes x 10 ft x 3 laps Comments w/ shoulder front raises 2 Standing Exercise Name FWD lunges Resistance 10# Reps/Minutes x 12 ft x 3 Comments Front raises 1 Standing Exercise Name Steady lunges Resistance 5lbs# each hand Reps/Minutes x 8 reps x 2 sets Comments HEP comp Other Exercises Hop down Other Exercise Name Vertical jump floor to ground & back from steps Equipment Used 6, 8, 12, & 16 steps Reps/Minutes ~5 x each Comments HEP comp Hop lateral Other Exercise Name Hop onto BUSO Side bilateral Reps/Minutes 15x 6 Other Exercise Name BUSO side to side lunge Reps/Minutes x 10 reps x 2 sets 5 Other Exercise Name Leg long hopped Side left Reps/Minutes x 5 x 3 sets Comments HEP comp 4 Other Exercise Name Floor square coordination exercises: Reps/Minutes x 30 secs x 2 sets. Comments HEP comp 3 Other Exercise Name 12 sit to stand Equipment Used x 12 reps 2 Other Exercise Name single L leg hopped in place: side to side and fwd over a stick Side left Equipment Used cone for agility Reps/Minutes 10x x 2 Comments HEP comp Self-Care/Home Management Treatment Education Patient Education Home Exercise Program Joint Protection Pain Management Posture Safety PT-OP-R Modalities Start: 06/15/18 17:24 Freq: Status: Active Protocol: Document 09/09/18 13:47 EA (Rec: 09/09/18 13:56 EA [id number]) Hot Pack/Cold Pack Treatment Cold Pack Location left knee Patient Position Hooklying Treatment Duration (minutes) 10 Patient Tolerance Good PT-OP-T Assessment and Plan Start: 06/15/18 17:24 Freq: Status: Active Protocol: Document 09/16/18 10:14 EA (Rec: 09/16/18 10:23 EA [id number]) Physical Therapy Assessment Assessment Summary Assessment Patient exhibited improved tolerance to high intense/ impact exercises with no signs of pain but very minimal instability at left long leg hopped fwd. No noted any signs of increased symptoms. Excellent improvement noted at this time. She has shown excellent understanding about HEP/fitness progressing and safety. Overall patient is improved. Discharge to this date per patient request and as well reaching goals. Physical Therapy Plan Discharge Physical Therapy Discharge Reasons Goals Met Discharge Comments patient request
== END 2018-09-16 16:04 | disposition home or self-care (01) ==
LOC: PHYS 08:15
PROVIDERS: PCP Family Medicine; Visit Provider Family Medicine
DX: M25.562 Pain in left knee (principal)
CPT/HCPCS: 97010; 97110; 97140; 97161; 97535

== ENCOUNTER → 2018-12-31 07:53 | Outpatient (CLI) | payer BC, OTHER, SELFPAY ==
[2018-12-31 08:39] LABS: Add Manual Diff / Slide Review NO; Basophils Absolute Auto 0 /uL (0-100); Basophils Percent Auto 0.7 % (0-2); Eosinophils Absolute Auto 100 /uL (0-450); Eosinophils Percent Auto 2.5 % (2-4); Hematocrit 39.7 % (36-46); Hemoglobin 13.9 g/dL (12.0-16.0); Lymphocytes Absolute Auto 1400 /uL (1100-4500); Lymphocytes Percent Auto 27.4 % (25-40); Mean Corpuscular HGB Conc 35.1 % (30-36); Mean Corpuscular Hemoglobin 34.9 PG (26-34); Mean Corpuscular Volume 99.5 fL (80-100); Monocytes Absolute Auto 300 /uL (0-900); Monocytes Percent Auto 6.4 % (3-14); Neutrophils Absolute Auto 3200 /uL (1500-7000); Platelet Count 214 X10^3/uL (150-400); Red Blood Cell Count 3.99 X10^6/uL (4.0-5.2); White Blood Cell Count 5.1 X10^3/uL (4.5-11.0)
[2018-12-31 08:47] LABS: Alanine Aminotransferase 13 IU/L (9-52); Albumin 4.3 g/dL (3.5-5.0); Albumin Globulin Ratio 1.4 (1.0-2.8); Alkaline Phosphatase 58 U/L (38-126); Aspartate Aminotransferase 23 IU/L (14-36); BUN Creatinine Ratio 13.6 (6-22); Bilirubin Total 0.7 mg/dL (0.2-1.3); Blood Urea Nitrogen 15 mg/dL (7-17); Calcium 9.1 mg/dL (8.4-10.2); Carbon Dioxide 28 mmol/L (22-32); Chloride 103 mmol/L (98-107); Cholesterol 157 mg/dL (140-199); Glucose 80 mg/dL (70-100); HDL Cholesterol 74 mg/dL (40-60); HEMOLYSIS < 15 (0-50); LDL Cholesterol Calculated 67 mg/dL (<100); Potassium 4.8 mmol/L (3.4-5.1); Sodium 138 mmol/L (137-145); Total Protein 7.3 g/dL (6.3-8.2); Triglycerides 82 mg/dL (35-150)
[2018-12-31 09:51] LABS: Thyroid Stimulating Hormone 3.01 uIU/mL (0.47-4.68)
== END ==
PROVIDERS: PCP Family Medicine; Visit Provider Family Medicine
DX: I10 Essential (primary) hypertension (principal)
CPT/HCPCS: 36415; 80053; 80061; 84443; 85025

== ENCOUNTER → 2019-10-18 14:40 | Outpatient (CLI) | payer BC, OTHER, SELFPAY ==
[2019-10-18 16:24] LABS: Add Manual Diff / Slide Review NO; Basophils Absolute Auto 0 /uL (0-100); Basophils Percent Auto 0.4 % (0-2); Eosinophils Absolute Auto 100 /uL (0-450); Eosinophils Percent Auto 1.4 % (2-4); Hematocrit 40.6 % (36-46); Hemoglobin 14.1 g/dL (12.0-16.0); Lymphocytes Absolute Auto 1400 /uL (1100-4500); Lymphocytes Percent Auto 20.7 % (25-40); Mean Corpuscular HGB Conc 34.7 % (30-36); Mean Corpuscular Hemoglobin 34.6 PG (26-34); Mean Corpuscular Volume 99.8 fL (80-100); Monocytes Absolute Auto 500 /uL (0-900); Monocytes Percent Auto 6.9 % (3-14); Neutrophils Absolute Auto 4900 /uL (1500-7000); Neutrophils Percent Auto 70.6 % (50-75); Platelet Count 209 X10^3/uL (150-400); Red Blood Cell Count 4.07 X10^6/uL (4.0-5.2); Red Cell Distribution Width 13.3 % (11.6-14.8); White Blood Cell Count 6.9 X10^3/uL (4.5-11.0)
[2019-10-18 16:39] LABS: Alanine Aminotransferase 11 IU/L (<35); Albumin 4.4 g/dL (3.5-5.0); Albumin Globulin Ratio 1.5 (1.0-2.8); Alkaline Phosphatase 57 U/L (38-126); Aspartate Aminotransferase 21 IU/L (14-36); BUN Creatinine Ratio 18.4 (6-22); Bilirubin Total 0.5 mg/dL (0.2-1.3); Blood Urea Nitrogen 16 mg/dL (7-17); Calcium 9.5 mg/dL (8.4-10.2); Carbon Dioxide 21 mmol/L (22-32); Chloride 107 mmol/L (98-107); Estimated Glomerular Filt Rate > 60.0 mL/min (>60); Globulin 2.9 g/dL (1.7-4.1); Glucose 89 mg/dL (70-100); HEMOLYSIS < 15 (0-50); Potassium 4.5 mmol/L (3.4-5.1); Sodium 137 mmol/L (137-145); Total Protein 7.3 g/dL (6.3-8.2)
[2019-10-18 18:35] LABS: Thyroid Stimulating Hormone 1.63 uIU/mL (0.47-4.68)
== END ==
PROVIDERS: PCP Family Medicine; Referring Provider Family Medicine; Visit Provider Family Medicine
DX: I10 Essential (primary) hypertension (principal)
CPT/HCPCS: 36415; 80053; 84443; 85025

== ENCOUNTER → 2020-06-12 13:43 | Outpatient (CLI) | payer BC, OTHER, SELFPAY ==
[2020-06-12 14:06] LABS: COVID19 -Nasal RAPID Negative (Negative)
== END ==
PROVIDERS: PCP Family Medicine; Visit Provider Physician Assistant
DX: J98.8 Other specified respiratory disorders (principal); R05 Cough; R53.83 Other fatigue; Z20.822 Contact with and (suspected) exposure to COVID-19
CPT/HCPCS: 87635

== ENCOUNTER 2020-08-19 20:14 | Emergency (ER) | payer BC, OTHER, SELFPAY ==
[2020-08-19 20:18] VITALS: BP 140/90; PULSE 72; RESP 16; TEMP 36.9; O2SAT 100; BMI 23.5
--- NOTE | 2020-08-19 20:20 | ED.UPPEXIN ---
HPI - Extremity Injury (Upper) General Chief Complaint: Extremity Injury, Upper Stated Complaint: smashed index finger with sledgehammer Time Seen by Provider: 08/19/20 20:20 Source: patient Mode of arrival: Ambulatory Limitations: no limitations History of Present Illness HPI narrative: 44-year-old female nonsmoker with noncontributory medical history presents with a chief complaint of an accidental injury to her right index finger when using a sledgehammer to build a fence. This happened earlier this evening. Her tetanus is perhaps 6 years old. She has pain and bleeding but denies any numbness, tingling or weakness. She is otherwise well and free of complaint. MD complaint: injury to: right and finger Onset (ago): hour(s) Handedness: right Place: outdoors Severity: moderate Relieving factors: immobilization Exacerbating factors: movement of extremity Context: direct blow Associated symptoms: denies other symptoms Treatments prior to arrival: cold therapy and bandage Related Data Home Medications Medication Instructions Recorded Confirmed MULTIVITAMIN (Multivitamin 1 cap PO EVERY DAY #0 02/18/10 08/15/20 -) Previous Rx's Medication Instructions Recorded ibuprofen 600 mg PO Q8HP PRN #20 tab 03/28/16 citalopram 40 mg tablet See Rx Instructions .ROUTE 10/18/19 .COMPLEX #90 tablet lisinopril 20 mg tablet 20 mg PO DAILY #90 tab 06/05/20 dextroamphetamine-amphetamine 10 20 mg PO BID #120 tab 08/15/20 mg tablet cephalexin 500 mg PO Q6H 7 Days #28 cap 08/19/20 Allergies Allergy/AdvReac Type Severity Reaction Status Date / Time No Known Drug Allergies Allergy Verified 08/15/20 11:44 Review of Systems Constitutional Constitutional: Denies chills, Denies fatigue, Denies fever(s), Denies frequent falls, Denies lethargy and Denies weakness Eyes Eyes: Denies change in vision, Denies eye discharge, Denies irritation and Denies loss of vision ENT Ears, Nose, Mouth, and Throat: Denies change in voice, Denies dizziness, Denies neck pain, Denies sore throat and Denies throat swelling Cardiovascular Cardiovascular: Denies chest pain, Denies irregular heart rhythm, Denies lightheadedness, Denies palpitations, Denies dyspnea, Denies dyspnea on exertion and Denies orthopnea Respiratory Respiratory: Denies cough, Denies dyspnea, Denies dyspnea on exertion and Denies wheezing Gastrointestinal Gastrointestinal: Denies abdominal pain, Denies change in bowel habits, Denies diarrhea, Denies nausea and Denies vomiting Musculoskeletal Musculoskeletal: Reports arthralgias, Reports limited range of motion, Denies neck pain and Denies numbness Integumentary/Breasts Skin/Breast: Denies pruritus, Denies erythema, Denies rash and Reports wounds Neurologic Neurologic: Denies behavioral changes, Denies confusion, Denies dizziness, Denies frequent falls, Denies loss of vision, Denies numbness and Denies weakness Psychiatric Psychiatric: Denies anxiety, Denies behavioral changes, Denies confusion, Denies depression, Denies homicidal ideation and Denies suicidal ideation Endocrine Endocrine: Denies fatigue, Denies flushing and Denies palpitations Hematologic/Lymphatic Hematologic/Lymphatic: Denies easy bruising Allergic/Immunologic Allergic/Immunologic: Denies urticaria, Denies throat swelling and Denies wheezing Patient History Medical History Acne (~1987) ADHD Ankle pain (~1991) Chicken pox (~1979) Fractures (~1985) Irregular menstrual cycle (~2011) Kidney stones (~1997) Ovarian cyst (~2011) Rosacea (~2007) Staph infection (~1997) Tinnitus (~2012) URI (upper respiratory infection) Surgical History Anesthesia History of breast augmentation (~2010) History of lithotripsy Status post knee surgery (~1988) Surgical procedure planned (~2002) Surgical procedure planned (~2009) Family History Child Age: 16 Mental health problem Autism Father Age: 82 Cancer Low blood pressure Grandfather Alzheimer's disease Grandmother Heart disease Stroke Mother Age: 79 Hypertension Grandfather Heart disease Aortic aneurysm Grandmother Cancer Leukemia Social History Smoking Status: Never smoker Smoking Status: Never smoker Exam Narrative Exam Narrative: GEN: AOx3 and in mild distress EYES: Pupils are equal, round, and reactive to light and accommodation. Extraoccular muscles are intact bilaterally. There is no subconjunctival hemorrhage or exudate. CHEST: Lungs are clear to auscultation bilaterally and free of wheezes, rales, or rhonchi. Heart rate is regular rhythm, there are no murmurs, clicks, rubs, or gallops. There is no chest wall tenderness. ABD: Abdomen is soft and nontender. There is no guarding or rebound. Bowel sounds are normal in all 4 quadrants. There is no mass or organomegaly. EXT: Full but painful range of motion of right index finger with obvious injury distal to the DIPJ. There is no suggestion of nail fold or nail bed injury, laceration is irregular and approximately 2 cm wrapping underneath the tip of the finger and extending to the dorsal surface just medial to the nail. This is visualized in a bloodless field, no bony injury noted, no foreign body noted SKIN: Warm, pink, and dry. No erythema or rash Initial Vital Signs Initial Vital Signs: Vital Signs Temperature 98.4 F 08/19/20 20:18 Pulse Rate 72 08/19/20 20:18 Respiratory Rate 16 08/19/20 20:18 Blood Pressure 140/90 08/19/20 20:18 Pulse Oximetry 100 08/19/20 20:18 Procedures Laceration Repair Laceration 1: Site: hand Side (If applicable): right Size (cm): 2 Description: stellate and irregular Depth: simple, single layer Local Anesthetic: lidocaine 1% and with bicarb Pre-repair: wound explored, irrigated extensively and deep structures intact Skin layer closed with: nylon Size (cm): 5-0 Number of sutures: 3 Technique: simple, interrupted Orthopedic Splinting/Casting Injury #1: Side: right Upper Extremity Injury Location: finger Upper Extremity Immobilizer: finger (other) Post splinting neuro exam: intact Post splinting vascular exam: intact Placed by: Nursing Course Orders Ordered: ED Orders 08/19/20 20:23 XR finger RT min 2V Stat Discontinued Medications Hydrocodone Bitart/Acetaminophen (Hydrocodone/Acet 5/325 Prepack) 1 bottle MISC SEEINSTR ONE Stop: 08/19/20 20:24 Last Admin: 08/19/20 20:33 Dose: 1 bottle Documented by: ELFEGO Cefazolin Sodium (Cephalexin 250 Mg Prepack) 1 bottle MISC SEEINSTR ONE Stop: 08/19/20 20:24 Last Admin: 08/19/20 20:33 Dose: 250 mg Documented by: ELFEGO Diphtheria/Tetanus/Acell Pertussis (Tet,Diph,Pertuss(Acell),Vac/Pf 0.5 Ml Syringe) 0.5 ml IM .ONCE ONE Stop: 08/19/20 20:49 Last Admin: 08/19/20 20:52 Dose: 0.5 ml Documented by: ELFEGO Lidocaine/Sodium Bicarbonate (Lido 1%/Sod Bicarb 8.4% (10ml) 10 Ml Syringe) 10 ml INJ NOW ONE Stop: 08/19/20 20:25 Last Admin: 08/19/20 20:33 Dose: 10 ml Documented by: ELFEGO Vital Signs Vital signs: Vital Signs - 8 hr 08/19/20 20:18 Temperature 98.4 F Pulse Rate 72 Respiratory Rate 16 Blood Pressure 140/90 Pulse Oximetry 100 MDM - Extremity Injury (Upper) Imaging Data Extremity x-ray #1: Radiologist's Impression: [address] [id number] ReportSigned Patient: Estephania Vo AMR#: [id number]: 1975Acct:[id number]/Sex: 44 / FDate of Service: 08/19/20Loc: EDAccession Number: [id number] Procedure: XR finger RT min 2V Ordering Provider: Joey Ge D.O. PROCEDURE: XR FINGER RT MIN 2V INDICATIONS: crush injury with sledge TECHNIQUE: AP hand, 2 views of the right finger(s) acquired. COMPARISON: None. FINDINGS: Bones: No fractures or dislocations. No suspicious bony lesions. Soft tissues: Index finger soft tissue swelling. IMPRESSION: No fracture. If the patient's symptoms do not improve recommend followup radiographs in 10 days to assess for healing sclerosis/occult injury. Soft tissue swelling Dictated by: Yogesh Ibarra M.D. on 08/19/2020 at 20:47 Approved by: Yogesh Ibarra M.D. on 08/19/2020 at 20:48 Discharge Plan Departure Patient Disposition: Home Clinical Impression: Laceration Instructions: DI for Laceration Repair Activity Restrictions/Additional Instructions: Please keep the wound clean and dry to the best of your ability. Please monitor for signs of infection such as redness to the skin or increasing pain. Have the sutures removed by your doctor in about 7 days. If you are unable to get into your doctor, we would be happy to remove the sutures in that same timeframe. Prescriptions: New cephalexin 500 mg capsule 500 mg PO Q6H 7 Days Qty: 28 RF: 0 No Action MULTIVITAMIN (Multivitamin -) 1 cap PO EVERY DAY Qty: 0 RF: 0 ibuprofen 600 MG tablet 600 mg PO Q8HP PRNQty: 20 RF: 0 lisinopril 20 mg tablet 20 mg PO DAILY Qty: 90 RF: 3 citalopram 40 mg tablet See Rx Instructions .ROUTE .COMPLEX Qty: 90 RF: 3 dextroamphetamine-amphetamine [Adderall] 10 mg tablet 20 mg PO BID Qty: 120 RF: 0 Referrals: Oren Augustin DO [Primary Care Provider] -
--- NOTE | 2020-08-19 20:23 | DI.RAD.S_ITS ---
PROCEDURE: XR FINGER RT MIN 2V INDICATIONS: crush injury with sledge TECHNIQUE: AP hand, 2 views of the right finger(s) acquired. COMPARISON: None. FINDINGS: Bones: No fractures or dislocations. No suspicious bony lesions. Soft tissues: Index finger soft tissue swelling. IMPRESSION: No fracture. If the patient's symptoms do not improve recommend followup radiographs in 10 days to assess for healing sclerosis/occult injury. Soft tissue swelling Dictated by: Yogesh Ibarra M.D. on 08/19/2020 at 20:47 Approved by: Yogesh Ibarra M.D. on 08/19/2020 at 20:48
[2020-08-19] MEDS: cephALEXin 250 MG PREPACK 1 BOTTLE MISC (20:33)
[2020-08-19] MEDS: LIDO 1%/SOD BICARB 8.4% (10ML) 10 ML SYRINGE INJ (20:33)
[2020-08-19] MEDS: HYDROCODONE/ACET 5/325 PREPACK 1 BOTTLE MISC (20:33)
[2020-08-19] MEDS: TET,DIPH,PERTUSS(ACELL),VAC/PF 0.5 ML SYRINGE IM (20:52)
== END 2020-08-19 21:17 | disposition home or self-care (01) ==
PROVIDERS: Emergency Provider Emergency Medicine; PCP Family Medicine
DX: S61.210A Laceration without foreign body of right index finger without damage to nail, initial encounter (principal); W27.8XXA Contact with other nonpowered hand tool, initial encounter; Z23 Encounter for immunization
CPT/HCPCS: 12001; 73140; 90471; 99283; 90715

== ENCOUNTER 2020-09-28 13:20 | Emergency (ER) | payer BC, OTHER, SELFPAY ==
[2020-09-28 13:30] VITALS: BP 120/83; PULSE 78; RESP 17; TEMP 36.9; O2SAT 98; BMI 22.0
--- NOTE | 2020-09-28 13:31 | ED.GENADULT ---
HPI - General Adult General Chief complaint: Extremity Injury, Lower Stated complaint: rolled ankle 2 days ago Time Seen by Provider: 09/28/20 13:26 Source: patient Mode of arrival: Wheelchair Limitations: no limitations History of Present Illness HPI narrative: Patient is a 44-year-old female here for evaluation of a left ankle injury. She states that 2 days ago she was outside doing some exercises and when she jumped out of a tire she landed with her left leg in a hole and rolled her ankle. She was able to ambulate afterwards but was having discomfort and since that time the discomfort has worsened and she also is having swelling. Related Data Home Medications Medication Instructions Recorded Confirmed MULTIVITAMIN (Multivitamin 1 cap PO EVERY DAY #0 02/18/10 08/15/20 -) Previous Rx's Medication Instructions Recorded ibuprofen 600 mg PO Q8HP PRN #20 tab 03/28/16 citalopram 40 mg tablet See Rx Instructions .ROUTE 10/18/19 .COMPLEX #90 tablet lisinopril 20 mg tablet 20 mg PO DAILY #90 tab 06/05/20 dextroamphetamine-amphetamine 10 20 mg PO BID #240 tab 09/15/20 mg tablet Allergies Allergy/AdvReac Type Severity Reaction Status Date / Time No Known Drug Allergies Allergy Verified 09/28/20 13:52 Review of Systems Constitutional Constitutional: Reports system reviewed and no additional complaints, except as documented Musculoskeletal Musculoskeletal: Denies tingling Comments: Left ankle pain Integumentary/Breasts Comments: No bruising Neurologic Neurologic: Denies tingling Hematologic/Lymphatic Hematologic/Lymphatic: Reports system reviewed and no additional complaints, except as documented Allergic/Immunologic Allergic/Immunologic: Reports system reviewed and no additional complaints, except as documented Patient History Medical History Acne (~1987) ADHD Ankle pain (~1991) Chicken pox (~1979) Fractures (~1985) Irregular menstrual cycle (~2011) Kidney stones (~1997) Ovarian cyst (~2011) Rosacea (~2007) Staph infection (~1997) Tinnitus (~2012) URI (upper respiratory infection) Surgical History Anesthesia History of breast augmentation (~2010) History of lithotripsy Status post knee surgery (~1988) Surgical procedure planned (~2002) Surgical procedure planned (~2009) Family History Child Age: 16 Mental health problem Autism Father Age: 82 Cancer Low blood pressure Grandfather Alzheimer's disease Grandmother Heart disease Stroke Mother Age: 79 Hypertension Grandfather Heart disease Aortic aneurysm Grandmother Cancer Leukemia Social History Smoking Status: Never smoker Smoking Status: Never smoker alcohol intake frequency: 0-2 drinks per day Substance Use Type: does not use Exam Initial Vital Signs Initial Vital Signs: Vital Signs Temperature 98.4 F 09/28/20 13:30 Pulse Rate 78 09/28/20 13:30 Respiratory Rate 17 09/28/20 13:30 Blood Pressure 120/83 09/28/20 13:30 Pulse Oximetry 98 09/28/20 13:30 Const General: cooperative and comfortable Limitations: mental status not altered Cardio Pulses: dorsalis pedis present on the left Skin Lesions: no lesions Rashes: no rashes Neuro Sensory Exam: no sensory deficits noted Extrem Other: No proximal fibula tenderness on the left. No calf tenderness on the left. No Achilles tenderness. Has swelling around both the lateral medial malleolus. No tenderness along the base of the 5th metatarsal. No forefoot tenderness. Psych Appearance: grossly normal and well kempt Course Orders Ordered: ED Orders 09/28/20 13:31 XR ankle LT min 3V Stat Vital Signs Vital signs: Vital Signs - 8 hr 09/28/20 13:30 Temperature 98.4 F Pulse Rate 78 Respiratory Rate 17 Blood Pressure 120/83 Pulse Oximetry 98 Medical Decision Making Imaging Data Extremity x-ray #1: Radiologist's Impression: [address] [id number] ReportSigned Patient: Estephania Vo AMR#: [id number]: 1975Acct:[id number]/Sex: 44 / FDate of Service: 09/28/20Loc: EDAccession Number: [id number] Procedure: XR ankle LT min 3V Ordering Provider: Mohamud Lama D.O. PROCEDURE: XR ANKLE LT MIN 3V INDICATIONS: lateral and medical mal pain after injury TECHNIQUE: 3 views of the ankle were acquired. COMPARISON: None. FINDINGS: Bones: No fractures or dislocations. Ankle mortise is normally aligned. No suspicious bony lesions. Soft tissues: No tibiotalar joint effusion. Achilles tendon appears normal. IMPRESSION: No acute left ankle fracture or dislocation. Ankle mortise is intact. Dictated by: Fahad Glynn M.D. on 09/28/2020 at 13:49 Approved by: Fahad Glynn M.D. on 09/28/2020 at 13:49 [facility] Narrative Medical decision making narrative: She is neurovascularly intact. There were no fractures noted on the x-rays. She has an ankle brace and Anam bandages at home. She was given a crutches for comfort. We did discuss the findings of the x-rays. We did discuss conservative treatment to include elevation and ice. She was given return precautions and follow-up instructions. She expressed understanding and agreement. Discharge Plan Departure Patient Disposition: Home Clinical Impression: Ankle sprain and strain Instructions: How to Use Crutches, DI for Ankle Sprain, How To Perform RICE (Rest, Ice, Compress, Elevate), How to Apply an Elastic Wrap on Ankle Activity Restrictions/Additional Instructions: I do recommend that you keep your ankle elevated and iced. There were no fractures on the x-ray see you can walk on your left leg as tolerated. Contact your primary provider for follow-up. Return to the emergency department for any new or worsening symptoms Prescriptions: No Action MULTIVITAMIN (Multivitamin -) 1 cap PO EVERY DAY Qty: 0 RF: 0 ibuprofen 600 MG tablet 600 mg PO Q8HP PRNQty: 20 RF: 0 lisinopril 20 mg tablet 20 mg PO DAILY Qty: 90 RF: 3 dextroamphetamine-amphetamine [Adderall] 10 mg tablet 20 mg PO BID Qty: 240 RF: 0 citalopram 40 mg tablet See Rx Instructions .ROUTE .COMPLEX Qty: 90 RF: 3 Referrals: Oren Augustin DO [Primary Care Provider] -
== END 2020-09-28 14:14 | disposition home or self-care (01) ==
PROVIDERS: Emergency Provider Emergency Medicine; PCP Family Medicine
DX: S93.402A Sprain of unspecified ligament of left ankle, initial encounter (principal); S96.912A Strain of unspecified muscle and tendon at ankle and foot level, left foot, initial encounter; X50.1XXA Overexertion from prolonged static or awkward postures, initial encounter
CPT/HCPCS: 73610; 99282; 99283

== ENCOUNTER → 2021-01-10 08:01 | Outpatient (CLI) | payer BC, OTHER, SELFPAY ==
[2021-01-10 08:29] LABS: Add Manual Diff / Slide Review NO; Basophils Absolute Auto 0 /uL (0-100); Basophils Percent Auto 0.6 % (0-2); Eosinophils Absolute Auto 100 /uL (0-450); Eosinophils Percent Auto 2.2 % (2-4); Hematocrit 42.7 % (36-46); Hemoglobin 14.7 g/dL (12.0-16.0); Lymphocytes Absolute Auto 2000 /uL (1100-4500); Lymphocytes Percent Auto 29.8 % (25-40); Mean Corpuscular HGB Conc 34.3 % (30-36); Mean Corpuscular Hemoglobin 34.4 PG (26-34); Mean Corpuscular Volume 100.4 fL (80-100); Monocytes Absolute Auto 500 /uL (0-900); Monocytes Percent Auto 7.7 % (3-14); Neutrophils Absolute Auto 3900 /uL (1500-7000); Neutrophils Percent Auto 59.7 % (50-75); Platelet Count 233 X10^3/uL (150-400); Red Blood Cell Count 4.26 X10^6/uL (4.0-5.2); Red Cell Distribution Width 13.7 % (11.6-14.8); White Blood Cell Count 6.5 X10^3/uL (4.5-11.0)
[2021-01-10 08:59] LABS: Alanine Aminotransferase 11 IU/L (<35); Albumin 4.5 g/dL (3.5-5.0); Albumin Globulin Ratio 1.7 (1.0-2.8); Alkaline Phosphatase 63 U/L (38-126); Aspartate Aminotransferase 19 IU/L (14-36); BUN Creatinine Ratio 17.5 (6-22); Bilirubin Total 0.4 mg/dL (0.2-1.3); Blood Urea Nitrogen 14 mg/dL (7-17); Calcium 9.3 mg/dL (8.4-10.2); Carbon Dioxide 28 mmol/L (22-32); Chloride 107 mmol/L (98-107); Cholesterol 152 mg/dL (140-199); Estimated Glomerular Filt Rate > 60.0 mL/min (>60); Globulin 2.7 g/dL (1.7-4.1); Glucose 85 mg/dL (70-100); HDL Cholesterol 68 mg/dL (40-60); HEMOLYSIS < 15 (0-50); LDL Cholesterol Calculated 67 mg/dL (<100); Potassium 4.9 mmol/L (3.4-5.1); Sodium 141 mmol/L (137-145); Total Protein 7.2 g/dL (6.3-8.2); Triglycerides 85 mg/dL (35-150)
== END ==
PROVIDERS: PCP Family Medicine; Referring Provider Family Medicine; Visit Provider Family Medicine
DX: I10 Essential (primary) hypertension (principal)
CPT/HCPCS: 36415; 80053; 80061; 85025

== ENCOUNTER → 2021-03-13 16:44 | Outpatient (CLI) | payer BC, OTHER, SELFPAY ==
--- NOTE | 2021-03-13 | DI.MG.S_ITS ---
BILATERAL DIGITAL SCREENING MAMMOGRAM 3D/2D WITH CAD WITH AUGMENTATION: 03/13/2021 CLINICAL: Patient presents for routine screening. S/P bilateral augmentation. Comparison is made to exams dated: 04/15/2018 mammogram and 06/05/2016 mammogram - [facility]. There are scattered fibroglandular elements in both breasts. Current study was also evaluated with a Computer Aided Detection (CAD) system. Bilateral retropectoral silicone implants are stable. No significant masses, calcifications, or other findings are seen in either breast. There has been no significant interval change. IMPRESSION: NEGATIVE There is no mammographic evidence of malignancy. A 1 year screening mammogram is recommended. This exam was interpreted at Station ID: [id number]. NOTE: For mammograms, a report in lay terms will be sent to the patient. Approximately 15% of breast malignancies will not be visualized mammographically. In the management of a palpable breast mass, a negative mammogram must not discourage biopsy of a clinically suspicious lesion. Electronically Signed By: Solis arriaza/nadira:03/13/2021 17:08:26 copy to: KINA CAIN letter sent: Normal Exam ACR BI-RADS Category 1: Negative 3341F
== END ==
PROVIDERS: PCP Family Medicine; Referring Provider Family Medicine; Visit Provider Family Medicine
DX: Z12.31 Encounter for screening mammogram for malignant neoplasm of breast (principal); Z98.82 Breast implant status
CPT/HCPCS: 77063; 77067

== ENCOUNTER 2022-03-01 18:04 | Emergency (ER) | payer BC, OTHER, SELFPAY ==
[2022-03-01 18:18] VITALS: BP 122/80; PULSE 70; RESP 16; TEMP 36.6; O2SAT 99; BMI 22.7
--- NOTE | 2022-03-01 18:26 | DI.CT.S_ITS ---
PROCEDURE: CT HEAD/BRAIN WO CON INDICATIONS: fall off ladder, R jaw pain TECHNIQUE: Noncontrast 4.5 mm thick angled axial sections acquired from the foramen magnum to the vertex, with coronal and sagittal reformats. For radiation dose reduction, the following was used: automated exposure control, adjustment of mA and/or kV according to patient size. COMPARISON: None. FINDINGS: Image quality: Excellent. CSF spaces: Basal cisterns are patent. No extra-axial fluid collections. Ventricles are normal in size and shape. Brain: No midline shift. No intracranial masses or hemorrhage. Wilde-white matter interface is normal. Skull and face: Calvarium and visualized facial bones are intact, without suspicious lesions. Sinuses: Visualized sinuses and mastoids are clear. IMPRESSION: 1. No CT evidence of acute intracranial abnormalities. 2. No gross acute skull fracture. Dictated by: Fahad Glynn M.D. on 03/01/2022 at 18:58 Approved by: Fahad Glynn M.D. on 03/01/2022 at 19:01
--- NOTE | 2022-03-01 18:26 | DI.CT.S_ITS ---
PROCEDURE: CT FACIAL BONES WO CON INDICATIONS: fall off ladder, R jaw pain TECHNIQUE: Noncontrast 2.5 mm thick axial images acquired from the mandible through the frontal sinuses, with coronal and sagittal reformatting. For radiation dose reduction, the following was used: automated exposure control, adjustment of mA and/or kV according to patient size. COMPARISON: None. FINDINGS: Image quality: Excellent. Bones and teeth: Orbital hobbs are intact. Sinus hobbs show no fracture or deformity. Nasal bones and septum are intact. Visualized portions of the mandible demonstrate no fractures or subluxation. Zygomatic arches are intact. Pterygoid plates are intact. Visualized portions of the skull base and auditory canals are intact. Sinuses: Paranasal sinuses are aerated, without fluid levels, mucosal thickening, or mucoceles. Mastoid air cells are aerated. Soft tissues: Soft tissue swelling and edema over right mandible is seen No enlarged lymph nodes. No soft tissue lacerations or debris. Vascular: Visualized vascular structures appear normal in the absence of contrast. Bony vascular foramina and canals are intact. IMPRESSION: 1. Soft tissue swelling and edema over right mandible. 2. No acute facial bone or nasal bone fracture. Bilateral orbital hobbs are intact. 3. Bilateral paranasal sinuses are well aerated. Mastoids are well aerated. Dictated by: Fahad Glynn M.D. on 03/01/2022 at 18:56 Approved by: Fahad Glynn M.D. on 03/01/2022 at 18:58
--- NOTE | 2022-03-01 18:26 | DI.CT.S_ITS ---
PROCEDURE: CT CERVICAL SPINE WO CON INDICATIONS: fall off ladder, R jaw pain TECHNIQUE: Noncontrast 3 mm thick sections acquired from the skull base to the T4 level. Sagittal and coronal reformats were then constructed. For radiation dose reduction, the following was used: automated exposure control, adjustment of mA and/or kV according to patient size. COMPARISON: None. FINDINGS: Image quality: Excellent. Bones: No fractures or dislocations. Mild degenerative endplate changes are seen at C4-5 through C6-7 levels. No significant canal stenosis or neural foraminal narrowing. Visualized superior ribs are intact. Soft tissues: Prevertebral soft tissues are normal in thickness. No paravertebral hematomas. No apical pneumothoraces. IMPRESSION: No acute cervical spine fracture or dislocation. Mild degenerative disc disease in mid to lower cervical spine. Dictated by: Fahad Glynn M.D. on 03/01/2022 at 18:55 Approved by: Fahad Glynn M.D. on 03/01/2022 at 18:56
--- NOTE | 2022-03-01 18:28 | ED_ITS ---
HPI - Fall General Chief Complaint: Fall Stated Complaint: Fell, Chin lac Time Seen by Provider: 03/01/22 18:26 History of Present Illness HPI Narrative: 46-year-old female nonsmoker with noncontributory medical history presents for evaluation of an injury to her chin after a fall suffered just prior to her arrival. She was walking between 2 ladders and slipped from about the 3rd or 4th step up and in doing so fell forward striking her chin on the ground. She has a superficial abrasion and perhaps small laceration on her chin. She is got a mild headache but denies any significant head injury. She denies loss of consciousness, blurred vision, nausea or vomiting. She does not take any blood thinners and denies use of alcohol. She denies any midline neck pain. She does state that her lower teeth feel weird though they are not loose. She has some pain in her temporomandibular joints but no popping or clicking. She denies any chest pain or shortness of breath. She denies abdominal pain or extremity pain Related Data Home Medications Medication Instructions Recorded Confirmed MULTIVITAMIN (Multivitamin 1 cap PO EVERY DAY ##0 02/18/10 06/04/21 -) Previous Rx's Medication Instructions Recorded ibuprofen 600 mg tablet 600 mg PO Q8HP PRN #20 tabs 03/28/16 lisinopril 20 mg tablet See Rx Instructions .Route 10/06/21 .COMPLEX #90 tabs citalopram 40 mg tablet See Rx Instructions .Route 11/18/21 .COMPLEX #90 tabs dextroamphetamine-amphetamine 10 20 mg PO BID #240 tabs 01/10/22 mg tablet (Adderall) Allergies Allergy/AdvReac Type Severity Reaction Status Date / Time No Known Drug Allergies Allergy Verified 06/04/21 16:49 Review of Systems Review of Systems Narrative: GENERAL: See HPI HEENT: See HPI RESPIRATORY: Denies dyspnea, cough, wheezing, hemoptysis, sputum. CARDIOVASCULAR: Denies chest pain, palpitations, orthopnea, edema, GASTROINTESTINAL: Denies nausea, vomiting, abdominal pain, diarrhea, constipation, melena. : Denies dysuria, frequency, incontinence, hematuria, urinary retention. MUSCULOSKELETAL: See HPI SKIN: Denies rash, skin lesions, or other NEUROLOGIC: Denies weakness, headache, numbness, change in speech, confusion, seizures, incoordination. PSYCHIATRIC: No concerning psychosocial issues. 12 point review of systems is negative except for those stated above Patient History Medical History (Reviewed 03/02/22 @ 01:48 PST by Joey Ge DO) Acne (~1987) ADHD Ankle pain (~1991) Chicken pox (~1979) Fractures (~1985) Irregular menstrual cycle (~2011) Kidney stones (~1997) Ovarian cyst (~2011) Post-COVID chronic fatigue Rosacea (~2007) Staph infection (~1997) Tinnitus (~2012) URI (upper respiratory infection) Surgical History (Reviewed 03/02/22 @ 01:48 PST by Joey Ge DO) Anesthesia History of breast augmentation (~2010) History of lithotripsy Status post knee surgery (~1988) Surgical procedure planned (~2002) Surgical procedure planned (~2009) Family History (Reviewed 03/02/22 @ 01:48 PST by Joey Ge DO) Child Age: 17 Mental health problem Autism Father Age: 83 Cancer Low blood pressure Grandfather Alzheimer's disease Grandmother Heart disease Stroke Mother Age: 80 Hypertension Grandfather Heart disease Aortic aneurysm Grandmother Cancer Leukemia Social History (Reviewed 03/02/22 @ 01:48 PST by Joey Ge DO) Smoking Status: Never smoker Smoking Status: Never smoker alcohol intake frequency: 0-2 drinks per day Substance Use Type: does not use Exam Narrative Exam Narrative: GENERAL: [46] year old patient appears stated age. Well-developed patient, in mild distress. GCS 15 HEAD: Mild swelling to anterior right side mandible with a superficial laceration, the most lateral 0.5 cm does demonstrate superficial laceration that will require repair. She has no obvious malocclusion, negative popsicle bite test. No other scalp contusion, hematoma or evidence of depressed skull fracture EYES: Pupils equal round and reactive. No hyphema Extraocular motions intact. No scleral icterus. No injection or drainage. ENT: No intraoral lacerations or dental fracture, no malocclusion. Nose without bleeding, purulent drainage. No nasal septal hematoma Throat without erythema, tonsillar hypertrophy or exudate. Airway patent. NECK: Trachea midline. Non tender CARDIOVASCULAR: Regular rate and rhythm without murmurs, gallops, or rubs. RESPIRATORY: Clear to auscultation. Breath sounds equal bilaterally. No wheezes, rales, or rhonchi. GASTROINTESTINAL: Abdomen soft, non-tender, nondistended. EXTREMITIES: No edema or joint tenderness. BACK: Nontender without deformity or crepitance. No flank tenderness. NEURO: AOx3. SKIN: No rash or erythema of visible areas Initial Vital Signs Initial Vital Signs: Vital Signs Temperature 97.8 F 03/01/22 18:18 Pulse Rate 70 03/01/22 18:18 Respiratory Rate 16 03/01/22 18:18 Blood Pressure 122/80 03/01/22 18:18 Pulse Oximetry 99 03/01/22 18:18 Oxygen Delivery Method 03/01/22 18:18 Procedures Laceration Repair Laceration 1: Site: face Side (If applicable): right Size (cm): 0.5 Description: irregular and clean Depth: simple, single layer Pre-repair: wound explored Skin layer closed with: dermabond Course Orders Ordered: ED Orders 03/01/22 18:26 CT cervical spine wo con Stat CT facial bones wo con Stat CT head/brain wo con Stat Discontinued Medications Hydrocodone Bitart/Acetaminophen (Hydrocodone/Acet 5/325 Prepack) 1 bottle MISC SEEINSTR ONE Stop: 03/01/22 19:19 Last Admin: 03/01/22 19:28 Dose: 1 bottle Documented By: SHASTA Ondansetron HCl (Ondansetron 4 Mg Odt Prepack) 1 bottle MISC SEEINSTR ONE Stop: 03/01/22 19:19 Last Admin: 03/01/22 19:28 Dose: 1 bottle Documented By: SHASTA Vital Signs Vital signs: Vital Signs - 8 hr 03/01/22 18:18 Temperature 97.8 F Pulse Rate 70 Respiratory Rate 16 Blood Pressure 122/80 Pulse Oximetry 99 Oxygen Delivery Method Room Air MDM - Fall Imaging Data CT scan - head: Radiologist's Impression: [address] [address] [address] Scan Report Signed Patient: Estephania Vo MR#: [id number] : 1975 Acct:[id number] Age/Sex: 46 / F Date of Service: 03/01/22 Loc: ED Accession Number: [id number] ?? Procedure: CT head/brain wo con Ordering Provider: Joey Ge D.O. PROCEDURE:? CT HEAD/BRAIN WO CON ? INDICATIONS:? fall off ladder, R jaw pain ? TECHNIQUE:? Noncontrast 4.5 mm thick angled axial sections acquired from the foramen magnum to the vertex, with coronal and sagittal reformats.? For radiation dose reduction, the following was used:? automated exposure control, adjustment of mA and/or kV according to patient size.? ? COMPARISON:? None. ? FINDINGS:? Image quality:? Excellent.? ? CSF spaces:? Basal cisterns are patent.? No extra-axial fluid collections.? Ventricles are normal in size and shape.? ? Brain:? No midline shift.? No intracranial masses or hemorrhage.? Wilde-white matter interface is normal.? ? Skull and face:? Calvarium and visualized facial bones are intact, without suspicious lesions.? ? Sinuses:? Visualized sinuses and mastoids are clear.? ? IMPRESSION:? 1. No CT evidence of acute intracranial abnormalities. 2. No gross acute skull fracture.? ? ? Dictated by: Fahad Glynn M.D. on 03/01/2022 at 18:58 ? ? Approved by: Fahad Glynn M.D. on 03/01/2022 at 19:01 ? CT - cervical spine: Radiologist's Impression: Estephania Vo Herrera??46??F??1975 ? Allergy/Adv: No Known Drug Allergies (More??) Close Head CT (Signed) Fahad Glynn - 03/01/[address] (Signed) Fahad Glynn - 03/01/[address] (Signed) Fahad Glynn - 03/01/22 Mammogram Screening (Signed) Solis Paul - 03/13/21 Ankle X-Ray (Signed) Fahad Glynn - 09/28/20 Finger X-Ray (Signed) Yogesh Ibarra - 08/19/20 Mammogram Screening (Signed) Dakota Vinson - 04/15/18 Wrist X-Ray (Signed) Fabiano Ivan - 09/08/17 Hand X-Ray (Signed) Fabiano Ivan - 09/08/17 Launch?[address] [address] [address] Scan Report Signed Patient: Estephania Vo MR#: [id number] : 1975 Acct:[id number] Age/Sex: 46 / F Date of Service: 03/01/22 Loc: ED Accession Number: [id number] ?? Procedure: CT facial bones wo con Ordering Provider: Joey Ge D.O. PROCEDURE:? CT FACIAL BONES WO CON ? INDICATIONS:? fall off ladder, R jaw pain ? TECHNIQUE:? Noncontrast 2.5 mm thick axial images acquired from the mandible through the frontal sinuses, with coronal and sagittal reformatting.? For radiation dose reduction, the following was used:? automated exposure control, adjustment of mA and/or kV according to patient size.? ? COMPARISON:? None. ? FINDINGS:? Image quality:? Excellent.? ? Bones and teeth:? Orbital hobbs are intact.? Sinus hobbs show no fracture or deformity.? Nasal bones and septum are intact.? Visualized portions of the mandible demonstrate no fractures or subluxation.? Zygomatic arches are intact.? Pterygoid plates are intact.? Visualized portions of the skull base and auditory canals are intact.? ? Sinuses:? Paranasal sinuses are aerated, without fluid levels, mucosal thickening, or mucoceles.? Mastoid air cells are aerated.? ? Soft tissues:? Soft tissue swelling and edema over right mandible is seen No enlarged lymph nodes.? No soft tissue lacerations or debris.? ? Vascular:? Visualized vascular structures appear normal in the absence of c ontrast.? Bony vascular foramina and canals are intact.? ? IMPRESSION:? 1. Soft tissue swelling and edema over right mandible. 2. No acute facial bone or nasal bone fracture.? Bilateral orbital hobbs are intact. 3. Bilateral paranasal sinuses are well aerated.? Mastoids are well aerated.? ? ? Dictated by: Fahad Glynn M.D. on 03/01/2022 at 18:56 ? ? Approved by: Fahad Glynn M.D. on 03/01/2022 at 18:58 ? CT Facial Bones: Radiologist's Impression: Estephania Vo??46??F??1975 ? Allergy/Adv: No Known Drug Allergies (More??) Close Head CT (Signed) Fahad Glynn - 03/01/[address] (Signed) Fahad Glynn - 03/01/[address] (Signed) Fahad Glynn - 03/01/22 Mammogram Screening (Signed) PaulSolis cevallos - 03/13/21 Ankle X-Ray (Signed) Fahad Glynn - 09/28/20 Finger X-Ray (Signed) Yogesh Ibarra - 08/19/20 Mammogram Screening (Signed) Dakota Vinson - 04/15/18 Wrist X-Ray (Signed) Fabiano Ivan - 09/08/17 Hand X-Ray (Signed) Fabiano Ivan - 09/08/17 Launch?[place] [address] CT Scan Report Signed Patient: Estephania Vo MR#: [id number] : 1975 Acct:[id number] Age/Sex: 46 / F Date of Service: 03/01/22 Loc: ED Accession Number: [id number] ?? Procedure: CT facial bones wo con Ordering Provider: Joey Ge D.O. PROCEDURE:? CT FACIAL BONES WO CON ? INDICATIONS:? fall off ladder, R jaw pain ? TECHNIQUE:? Noncontrast 2.5 mm thick axial images acquired from the mandible through the frontal sinuses, with coronal and sagittal reformatting.? For radiation dose reduction, the following was used:? automated exposure control, adjustment of mA and/or kV according to patient size.? ? COMPARISON:? None. ? FINDINGS:? Image quality:? Excellent.? ? Bones and teeth:? Orbital hobbs are intact.? Sinus hobbs show no fracture or deformity.? Nasal bones and septum are intact.? Visualized portions of the mandible demonstrate no fractures or subluxation.? Zygomatic arches are intact.? Pterygoid plates are in tact.? Visualized portions of the skull base and auditory canals are intact.? ? Sinuses:? Paranasal sinuses are aerated, without fluid levels, mucosal thickening, or mucoceles.? Mastoid air cells are aerated.? ? Soft tissues:? Soft tissue swelling and edema over right mandible is seen No enlarged lymph nodes.? No soft tissue lacerations or debris.? ? Vascular:? Visualized vascular structures appear normal in the absence of contrast.? Bony vascular foramina and canals are intact.? ? IMPRESSION:? 1. Soft tissue swelling and edema over right mandible. 2. No acute facial bone or nasal bone fracture.? Bilateral orbital hobbs are intact. 3. Bilateral paranasal sinuses are well aerated.? Mastoids are well aerated.? ? ? Dictated by: Fahad Glynn M.D. on 03/01/2022 at 18:56 ? ? Approved by: Fahad Glynn M.D. on 03/01/2022 at 18:58 ? Discharge Plan Departure Patient Disposition: Home Clinical Impression: Concussion, Chin laceration Instructions: DI for Concussion, DI for Laceration Repair-Skin Glue Activity Restrictions/Additional Instructions: *You have been diagnosed with [fall with minor head injury and chin laceration] *What to do: *Please continue to take your regular medications as directed. *Please follow up with your primary care provider in 2-3 days, call for an ap pointment. Let them know you were seen in the Emergency Department and that we ask that you be seen in follow up. We will electronically transmit a record of today's note if your PCP is in our system * You have a slight concussion and will likely have a mild headache and some nausea for a few days. Avoiding highly stimulating activities and even TV or computers may be helpful in minimizing your symptoms. Avoid activities that will put you at risk for another head injury for at least a week. You can take tylenol or motrin for headache or the prescription provided for nausea/vomiting. Return for worsening or persistent symptoms *Return to Emergency Department if you should have any new, worsening or concerning symptoms Prescriptions: No Action MULTIVITAMIN (Multivitamin -) 1 cap PO EVERY DAY Qty: 0 ibuprofen 600 MG tablet 600 mg PO Q8HP PRNQty: 20 0RF lisinopril 20 mg tablet See Rx Instructions .ROUTE .COMPLEX Qty: 90 2RF Dose Instruction: TAKE 1 TABLET BY MOUTH DAILY Rx Instructions: TAKE 1 TABLET BY MOUTH DAILY citalopram 40 mg tablet See Rx Instructions .ROUTE .COMPLEX Qty: 90 0RF Dose Instruction: TAKE 1 TABLET(40 MG) BY MOUTH EVERY DAY Rx Instructions: TAKE 1 TABLET(40 MG) BY MOUTH EVERY DAY dextroamphetamine-amphetamine [Adderall] 10 mg tablet 20 mg PO BID Qty: 240 0RF Referrals: Connor Augustin DO [Primary Care Provider] - Visit Report Forms: Patient Portal/API
[2022-03-01] MEDS: HYDROCODONE/ACET 5/325 PREPACK 1 BOTTLE MISC (19:28)
[2022-03-01] MEDS: ONDANSETRON 4 MG ODT PREPACK 1 BOTTLE MISC (19:28)
== END 2022-03-01 19:38 | disposition home or self-care (01) ==
PROVIDERS: Emergency Provider Emergency Medicine; PCP Family Medicine
DX: S01.81XA Laceration without foreign body of other part of head, initial encounter (principal); S06.0X0A Concussion without loss of consciousness, initial encounter; W11.XXXA Fall on and from ladder, initial encounter
CPT/HCPCS: 12011; 70450; 70486; 72125; 99284

== ENCOUNTER → 2023-02-06 16:36 | Outpatient (CLI) | payer BC, OTHER, SELFPAY ==
[2023-02-06 17:12] LABS: Add Manual Diff / Slide Review NO; Basophils Absolute Auto 0 /uL (0-100); Basophils Percent Auto 0.5 % (0-2); Eosinophils Absolute Auto 100 /uL (0-450); Eosinophils Percent Auto 0.8 % (2-4); Hematocrit 41.5 % (36-46); Hemoglobin 14.3 g/dL (12.0-16.0); Lymphocytes Absolute Auto 1500 /uL (1100-4500); Mean Corpuscular HGB Conc 34.6 % (30-36); Mean Corpuscular Hemoglobin 34.4 PG (26-34); Mean Corpuscular Volume 99.4 fL (80-100); Monocytes Absolute Auto 400 /uL (0-900); Monocytes Percent Auto 5.3 % (3-14); Neutrophils Absolute Auto 5600 /uL (1500-7000); Neutrophils Percent Auto 73.4 % (50-75); Platelet Count 269 X10^3/uL (150-400); Red Blood Cell Count 4.17 X10^6/uL (4.0-5.2); White Blood Cell Count 7.6 X10^3/uL (4.5-11.0)
[2023-02-06 17:46] LABS: Alanine Aminotransferase 31 IU/L (<35); Albumin 4.8 g/dL (3.5-5.0); Albumin Globulin Ratio 1.6 (1.0-2.8); Alkaline Phosphatase 60 U/L (38-126); Aspartate Aminotransferase 43 IU/L (14-36); BUN Creatinine Ratio 21.7 (6-22); Bilirubin Total 0.5 mg/dL (0.2-1.3); Blood Urea Nitrogen 23 mg/dL (7-17); Calcium 10.1 mg/dL (8.4-10.2); Carbon Dioxide 25 mmol/L (22-32); Chloride 106 mmol/L (98-107); Cholesterol 156 mg/dL (140-199); Estimated Glomerular Filt Rate > 60 mL/min (>60); Glucose 96 mg/dL (70-100); HDL Cholesterol 74 mg/dL (40-60); HEMOLYSIS < 15 (0-50); LDL Cholesterol Calculated 69 mg/dL (<100); Potassium 4.4 mmol/L (3.4-5.1); Sodium 141 mmol/L (137-145); Total Protein 7.8 g/dL (6.3-8.2); Triglycerides 65 mg/dL (35-150)
[2023-02-06 17:56] LABS: Vitamin D 25 Hydroxy (D3) 54.1 ng/mL (30.0-100.0)
[2023-02-06 18:17] LABS: TSH w/ Reflex to FT4 2.48 uIU/mL (0.47-4.68)
[2023-02-06 18:35] LABS: Vitamin B12 235 pg/mL (239-931)
== END ==
PROVIDERS: PCP Family Medicine; Referring Provider Family Medicine; Visit Provider Family Medicine
DX: F32.9 Major depressive disorder, single episode, unspecified (principal); I10 Essential (primary) hypertension
CPT/HCPCS: 36415; 80053; 80061; 82306; 82607; 84443; 85025

== ENCOUNTER → 2023-02-14 15:34 | Outpatient (CLI) | payer BC, OTHER, SELFPAY ==
--- NOTE | 2023-02-14 | DI.MG.S_ITS ---
BILATERAL DIGITAL SCREENING MAMMOGRAM 3D/2D WITH CAD WITH AUGMENTATION: 02/14/2023 CLINICAL: Routine screening. Comparison is made to exams dated: 03/13/2021 mammogram, 04/15/2018 mammogram, and 06/05/2016 mammogram - [facility]. There are scattered areas of fibroglandular density in both breasts (category b / 25%-50% glandular tissue). Current study was also evaluated with a Computer Aided Detection (CAD) system. Bilateral breast implants are stable and intact. No significant masses, calcifications, or other findings are seen in either breast. There has been no significant interval change. IMPRESSION: NEGATIVE There is no mammographic evidence of malignancy. A 1 year screening mammogram is recommended. Based on the Tyrer Cuzick model (a risk assessment model) the patient's lifetime risk is 8.5% and her 10 year risk is 1.8%. According to the ACR, ACS, and NCCN guidelines, an annual breast MRI exam along with mammogram is recommended if the patient's lifetime risk is 20% or greater. This exam was interpreted at Station ID: [id number]. NOTE: For mammograms, a report in lay terms will be sent to the patient. Approximately 15% of breast malignancies will not be visualized mammographically. In the management of a palpable breast mass, a negative mammogram must not discourage biopsy of a clinically suspicious lesion. Electronically Signed By: Jerry montano/nadira:02/16/2023 18:03:57 copy to: KINA CAIN letter sent: Normal Exam ACR BI-RADS Category 1: Negative 3341F
== END ==
PROVIDERS: PCP Family Medicine; Referring Provider Family Medicine; Visit Provider Family Medicine
DX: Z12.31 Encounter for screening mammogram for malignant neoplasm of breast (principal)
CPT/HCPCS: 77063; 77067

== ENCOUNTER 2023-05-12 07:25 | Day surgery (SDC) | payer BC, OTHER, SELFPAY ==
[2023-05-12] MEDS: LACTATED RINGERS 1,000 ML 42 ML IV (07:35)
[2023-05-12 07:48] VITALS: BP 103/76; PULSE 68; RESP 16; TEMP 36.6; O2SAT 100; BMI 23.5
--- NOTE | 2023-05-12 08:12 | PM.HP.1 ---
History of Present Illness History of Present Illness Date Patient Seen: 05/12/23 Time Patient Seen: 08:13 Chief complaint: [facility] Narrative: 47-year-old woman here 1st screening colonoscopy. No abdominal concerns today. Family history significant for father who passed from colon cancer. [facility] Medical History Puncture wound of wrist, right Ruptured ovarian cyst Dog bite Vaginal candidiasis Post-COVID chronic fatigue URI (upper respiratory infection) Staph infection (~1997) ADHD Fractures (~1985) Ankle pain (~1991) Rosacea (~2007) Acne (~1987) Chicken pox (~1979) Tinnitus (~2012) Ovarian cyst (~2011) Irregular menstrual cycle (~2011) Kidney stones (~1997) Surgical History Anesthesia Surgical procedure planned (~2009) Surgical procedure planned (~2002) History of breast augmentation (~2010) History of lithotripsy Status post knee surgery (~1988) Family History Child Age: 19 Mental health problem Autism Father Age: 85 Cancer Low blood pressure Grandfather Alzheimer's disease Grandmother Heart disease Stroke Mother Age: 82 Hypertension Grandfather Heart disease Aortic aneurysm Grandmother Cancer Leukemia Social History household members: spouse and family Smoking Status: Never smoker alcohol intake: current Meds Home Medications and Allergies Home Medications Medication Instructions Recorded Confirmed Type MULTIVITAMIN (Multivitamin 1 cap PO EVERY DAY ##0 02/18/10 05/12/23 History -) ibuprofen 600 mg tablet 600 mg PO Q8HP PRN #20 tabs 03/28/16 05/12/23 Rx lisinopril 20 mg tablet See Rx Instructions .Route 07/15/22 05/12/23 Rx .COMPLEX #90 tabs citalopram 10 mg tablet See Rx Instructions PO DAILY #120 02/04/23 05/12/23 Rx tabs dextroamphetamine-amphetamine 10 20 mg (2 x 10 mg) PO BID #120 tabs 04/17/23 05/12/23 Rx mg tablet (Adderall) Allergies Allergy/AdvReac Type Severity Reaction Status Date / Time No Known Drug Allergies Allergy Verified 05/12/23 07:42 Exam Vital Signs (past 8 hours): - 05/12/23 07:48 Temperature 97.8 F Pulse Rate 68 Respiratory Rate 16 Blood Pressure 103/76 Pulse Oximetry 100 Oxygen Delivery Method Room Air Oxygen Delivery Method Room Air Narrative Exam Narrative: General adult woman alert oriented no acute distress Chest nonlabored respiration Extremities warm well perfused Assessment & Plan Assessment and plan (1) Family history of colon cancer: Status: Acute Assessment & Plan narrative: The patient requires colorectal screening and colonoscopy is recommended. Technical details were discussed. Risks, benefits, alternatives explained. Risks including but not limited to myocardial infarction, aspiration, bleeding, pain, missed lesion, incomplete examination, need for further radiographic studies, colonic perforation, and need for major abdominal surgery were discussed. All questions were answered to their satisfaction, and they are in agreement with this plan.
--- NOTE | 2023-05-12 08:17 | P.OP.COLON_ITS ---
Operative Date/Time/Diagnoses Date of procedure: 05/12/23 Time of procedure: 08:17 Pre-op diagnosis: Family history of colon cancer Procedure & Clinicians Study performed: Colonoscopy Same procedure as scheduled: Yes Indications: Colorectal screening Family history colon cancer in first-degree relative. Surgeon: Tyler Barreto Procedure Notes Procedure in detail: The history and physical was performed/updated and the patient is ASA class is 2. The procedure was discussed in detail with the patient. Potential risks complications including infection, bleeding, missed diagnosis, perforation, need for surgery, and were explained. Their questions were answered and informed consent was obtained. Patient was brought to the procedure room and placed standard monitoring equipment. The patient's vital signs were monitored continuously throughout the entire procedure. Prior to starting time-out was performed. The patient was placed in the left lateral recumbent position. Procedural sedation was administered by anesthesia. Examination began with a thorough inspection of the perianal area there was no evidence of fissures, fistulae, external hemorrhoids or cutaneous malignancy. The colonoscopy scope was then placed into the anal canal and was advanced to the cecum, which was identified by the ileocecal valve, the appendiceal orifice and the confluence of the taenia. The scope was then slowly withdrawn examining colon thoroughly in all directions, irrigating it of any residual stool. The scope was retroflexed within the rectum The patient tolerated the procedure well. They will be discharged once criteria are met. The prep was of good/excellent quality. The withdrawl time was 7 minutes. FINDINGS * Normal colonoscopy. No masses polyps or inflammation. * Internal hemorrhoids grade 1 Specimen(s): none sent Impression: Normal colonoscopy Post-procedure Recommendations: Colonoscopy in 5 years Disposition: same day surgery
[2023-05-12 08:47] VITALS: BP 101/66; PULSE 76; RESP 18; TEMP 36.4; O2SAT 100
[2023-05-12 08:53] VITALS: BP 100/74; PULSE 65; RESP 16; O2SAT 100
[2023-05-12 09:02] VITALS: BP 111/82; PULSE 81; RESP 14; TEMP 36.6; O2SAT 100
== END 2023-05-12 09:25 | disposition home or self-care (01) ==
PROVIDERS: PCP Family Medicine; Referring Provider Surgery; Visit Provider Surgery
PROC: 0DJD8ZZ Inspection of Lower Intestinal Tract, Via Natural or Artificial Opening Endoscopic (ICD-10-PCS; CPT 45378; principal; 2023-05-12 08:15)
DX: Z12.11 Encounter for screening for malignant neoplasm of colon (principal); Z80.0 Family history of malignant neoplasm of digestive organs; K64.0 First degree hemorrhoids
CPT/HCPCS: 45378; J2704

== ENCOUNTER → 2023-11-11 09:21 | Outpatient (CLI) | payer BC, OTHER, SELFPAY ==
[2023-11-11 19:29] LABS: Alanine Aminotransferase 27 IU/L (<35); Albumin 4.2 g/dL (3.5-5.0); Albumin Globulin Ratio 1.4 (1.0-2.8); Alkaline Phosphatase 68 U/L (38-126); Aspartate Aminotransferase 27 IU/L (14-36); BUN Creatinine Ratio 18.2 (6-22); Bilirubin Total 0.5 mg/dL (0.2-1.3); Blood Urea Nitrogen 16 mg/dL (7-17); Calcium 9.3 mg/dL (8.4-10.2); Carbon Dioxide 22 mmol/L (22-32); Chloride 106 mmol/L (98-107); Estimated Glomerular Filt Rate > 60 mL/min (>60); Globulin 2.9 g/dL (1.7-4.1); Glucose 82 mg/dL (70-100); HEMOLYSIS < 15 (0-50); Potassium 4.1 mmol/L (3.4-5.1); Sodium 135 mmol/L (137-145); Total Protein 7.1 g/dL (6.3-8.2)
[2023-11-11 20:18] LABS: Vitamin B12 251 pg/mL (239-931)
== END ==
PROVIDERS: PCP Family Medicine; Referring Provider Family Medicine; Visit Provider Family Medicine
DX: I10 Essential (primary) hypertension (principal); R74.8 Abnormal levels of other serum enzymes; E53.8 Deficiency of other specified B group vitamins
CPT/HCPCS: 36415; 80053; 82607

== ENCOUNTER → 2024-02-16 14:04 | Outpatient (CLI) | payer BC, OTHER, SELFPAY ==
--- NOTE | 2024-02-16 14:05 | DI.MG.S_ITS ---
BILATERAL DIGITAL SCREENING MAMMOGRAM 3D/2D WITH CAD WITH AUGMENTATION: 02/16/2024 Comparison is made to exams dated: 02/14/2023 mammogram, 03/13/2021 mammogram, and 04/15/2018 mammogram - [facility]. There are scattered areas of fibroglandular density (category b / 25%-50% glandular tissue). Current study was also evaluated with a Computer Aided Detection (CAD) system. Bilateral breast implants are stable and intact. No significant masses, calcifications, or other findings are seen in either breast. There has been no significant interval change. IMPRESSION: BENIGN There is no mammographic evidence of malignancy. A 1 year screening mammogram is recommended. Based on the Tyrer Cuzick model (a risk assessment model) the patient's lifetime risk is 8.5% and her 10 year risk is 1.9%. According to the ACR, ACS, and NCCN guidelines, an annual breast MRI exam along with mammogram is recommended if the patient's lifetime risk is 20% or greater. This exam was interpreted at Station ID: [id number]. NOTE: For mammograms, a report in lay terms will be sent to the patient. Approximately 15% of breast malignancies will not be visualized mammographically. In the management of a palpable breast mass, a negative mammogram must not discourage biopsy of a clinically suspicious lesion. Electronically Signed By: Magaly Kramer M.D., Ph.D. milady/nadira:02/17/2024 01:53:44 copy to: KINA CAIN letter sent: Normal Exam ACR BI-RADS Category 2: Benign
== END ==
PROVIDERS: PCP Family Medicine; Referring Provider Family Medicine; Visit Provider Family Medicine
DX: Z12.31 Encounter for screening mammogram for malignant neoplasm of breast (principal)
CPT/HCPCS: 77063; 77067

== ENCOUNTER → 2024-10-27 11:32 | Outpatient (CLI) | payer OTHER, SELFPAY ==
[2024-10-27 12:53] LABS: Influenza A - CEPHEID Flu A NEGATIVE (NEGATIVE); Influenza B - CEPHEID Flu B NEGATIVE (NEGATIVE)
[2024-10-27 12:54] LABS: COVID-19 CEPHEID 4-PLEX PCR Negative (Negative)
== END ==
PROVIDERS: PCP Family Medicine; Visit Provider Student in an Organized Health Care Education/Training Program
DX: R05.1 Acute cough (principal); J02.9 Acute pharyngitis, unspecified; R50.9 Fever, unspecified
CPT/HCPCS: 87070; 87637

== ENCOUNTER → 2024-11-21 15:34 | Outpatient (CLI) | payer OTHER, SELFPAY ==
--- NOTE | 2024-11-21 15:35 | DI.RAD.S_ITS ---
PROCEDURE: XR CHEST 2V INDICATIONS: cough x 1 month TECHNIQUE: 2 views of the chest were acquired. COMPARISON: None. FINDINGS: Surgical changes and devices: None. Lungs and pleura: Lungs are clear. No pleural effusions or pneumothorax. Mediastinum: Mediastinal contours are normal. Heart size is normal. Bones and chest wall: No suspicious bony abnormalities. Soft tissues appear unremarkable. IMPRESSION: No acute cardiopulmonary abnormality is seen. Dictated by: Kiran De Leon M.D. on 11/21/2024 at 22:32 Approved by: Kiran De Leon M.D. on 11/21/2024 at 22:33
== END ==
PROVIDERS: PCP Family Medicine; Referring Provider Family Medicine; Visit Provider Family Medicine
DX: R05.3 Chronic cough (principal)
CPT/HCPCS: 71046

== ENCOUNTER → 2025-03-10 14:20 | Outpatient (CLI) | payer OTHER, SELFPAY ==
--- NOTE | 2025-03-10 14:21 | DI.MG.S_ITS ---
MM screening mammo implant BI: 03/10/2025. BI-RADS: 2 CLINICAL: 49-year old female for bilateral screening mammogram. Tyrer-Cuzick lifetime risk of 6.7%. No personal or first-degree family history of breast cancer. The patient has bilateral implants. PRIOR EXAMS 02/16/2024, 02/14/2023, 03/13/2021, 04/15/2018. MAMMOGRAPHY TECHNIQUE: 2D and 3D (tomosynthesis) digital mammographic views obtained, with additional images as needed for full coverage. Current study was also evaluated with a Computer Aided Detection (CAD) system. DENSITY B. There are scattered areas of fibroglandular density. IMPLANTS Breast implants present. MAMMOGRAPHY FINDINGS Bilateral: There are no suspicious masses, calcifications, or other findings in the breast. IMPRESSION: * No evidence of malignancy with benign findings. RECOMMENDATIONS Bilateral * Annual screening mammography. OVERALL ASSESSMENT CATEGORY BI-RADS-2: Benign. The [employer] recommends annual screening mammography beginning at age 40 for women with average risk of breast cancer. ELECTRONICALLY SIGNED: Celi Ferrera M.D. on 03/14/2025 at 04:47:02 PM PT Interpreting Station ID: [id number]
== END ==
PROVIDERS: PCP Family Medicine; Referring Provider Family Medicine; Visit Provider Family Medicine
DX: Z12.31 Encounter for screening mammogram for malignant neoplasm of breast (principal); Z98.82 Breast implant status
CPT/HCPCS: 77063; 77067